=== PATIENT | male | born 1950 | race Caucasian/White ===

== ENCOUNTER → 2018-02-13 09:02 | Outpatient (CLI) | payer MEDICARE, SELFPAY ==
[2018-02-13 09:46] LABS: Basophils # 0.2 K/mm3 (0-0.2); Eosinophils # 0.5 K/mm3 (0.0-0.4); Eosinophils % 3.6 % (0.1-12.0); Hemoglobin 17.3 g/dL (14.1-18.0); Lymphocytes # 3.4 K/mm3 (0.7-4.5); Mean Corpuscular HGB Conc 26.9 g/dL (31.8-35.4); Mean Corpuscular Hemoglobin 18.1 pg (27.0-31.2); Mean Corpuscular Volume 67.5 fl (80-94); Mean Platelet Volume 7.9 fl (7.4-10.4); Monocytes # 0.7 K/mm3 (0.1-1.0); Monocytes % 4.7 % (1.7-9.3); Neutrophils % 67.7 % (37.0-80.0); Platelet Count 555 K/mm3 (142-424); Red Cell Distribution Width 21.5 % (11.5-17.5); White Blood Count 14.7 K/mm3 (4.8-10.8)
[2018-02-13 10:12] LABS: Albumin Level 3.4 gm/dL (3.4-5.0); Blood Urea Nitrogen 17 mg/dL (7-18); Glucose 85 mg/dL (74-106); Sodium 138 mmol/L (136-145)
[2018-02-13 10:21] LABS: Red Blood Count 9.53 M/mm3 (4.60-6.20)
[2018-02-13 10:22] LABS: Hematocrit 64.3 % (42.0-52.0)
[2018-02-13 10:23] LABS: Anion Gap 13.9 mEq/L (5-15); Calcium 8.8 mg/dL (8.5-10.1); Carbon Dioxide 25 mmol/L (21.0-32.0); Chloride 106 mmol/L (98-107); Creatinine,Serum 1.56 mg/dL (0.70-1.30); Estimated Glomerular Filt Rate 44 ml/min (>60); GFR (African American) 54 ML/MIN (>60); Phosphorous 4.2 mg/dL (2.4-4.9)
[2018-02-13 11:54] LABS: Potassium 6.9 mmoL/L (3.5-5.1)
[2018-02-13 12:58] LABS: Appearance,Urine CLEAR (Clear); Bilirubin,Urine Negative (Negative); Blood, Urine Negative (Negative); Color,Urine YELLOW (Yellow); Glucose,Urine (UA) Negative (Negative); Ketones,Urine Negative (Negative); Leukocyte Esterase,Urine Negative (Negative); Nitrate,Urine Negative (Negative); PH,Urine 5.5 (5.0-8.5); Protein,Urine 2+ (Negative); Specific Gravity, Urine >= 1.030 (1.005-1.030); Urobilinogen,Urine 0.2 EU/dl (0.2)
[2018-02-13 13:07] LABS: Bacteria,Urine 1+ /lpf; Mucus,Urine 2+ /lpf; WBC,Urine Occasional #/hpf (0-3)
[2018-02-13 13:08] LABS: Creatinine,Urine Random 143 mg/dL (20-320); Total Protein,Urine Random 74.6 mg/dL (0.0-11.9)
[2018-02-13 14:12] LABS: Microscopic, Urine URINE MICROSCOPIC (MICROSCOPIC)
[2018-02-14 11:35] LABS: Vitamin D 25 Hydroxy 25.9 ng/mL (30.0-100.0)
[2018-02-14 17:08] LABS: Parathyroid Hormone Intact 28 pg/mL (15-65)
== END ==
PROVIDERS: PCP Family Medicine; Visit Provider Internal Medicine Nephrology
DX: N18.3 Chronic kidney disease, stage 3 (moderate) (principal)
CPT/HCPCS: 36415; 80069; 81001; 82570; 82652; 83970; 84155; 85025; 93005

== ENCOUNTER → 2018-02-23 14:05 | Outpatient (CLI) | payer MEDICARE, SELFPAY ==
[2018-02-23 14:56] LABS: Basophils # 0.2 K/mm3 (0-0.2); Basophils % 1.2 % (0.1-2.0); Eosinophils # 0.4 K/mm3 (0.0-0.4); Hemoglobin 16.9 g/dL (14.1-18.0); Lymphocytes # 3.6 K/mm3 (0.7-4.5); Lymphocytes % 24.2 K/mm3 (10-50); Mean Corpuscular HGB Conc 26.5 g/dL (31.8-35.4); Mean Corpuscular Hemoglobin 18.3 pg (27.0-31.2); Mean Platelet Volume 8.2 fl (7.4-10.4); Monocytes # 0.4 K/mm3 (0.1-1.0); Neutrophils # 10.1 K/mm3 (1.8-7.8); Neutrophils % 68.6 % (37.0-80.0); Platelet Count 586 K/mm3 (142-424); Red Cell Distribution Width 21.2 % (11.5-17.5); White Blood Count 14.8 K/mm3 (4.8-10.8)
[2018-02-23 14:58] LABS: Red Blood Count 9.25 M/mm3 (4.60-6.20)
[2018-02-23 15:04] LABS: Hematocrit 63.8 % (42.0-52.0)
[2018-02-23 15:23] LABS: Albumin Level 3.4 gm/dL (3.4-5.0); Anion Gap 13.5 mEq/L (5-15); Blood Urea Nitrogen 22 mg/dL (7-18); Calcium 8.6 mg/dL (8.5-10.1); Carbon Dioxide 25 mmol/L (21.0-32.0); Chloride 103 mmol/L (98-107); Creatinine,Serum 1.85 mg/dL (0.70-1.30); Estimated Glomerular Filt Rate 37 ml/min (>60); GFR (African American) 44 ML/MIN (>60); Glucose 166 mg/dL (74-106); Phosphorous 3.8 mg/dL (2.4-4.9); Sodium 135 mmol/L (136-145)
[2018-02-23 15:26] LABS: Potassium 6.5 mmoL/L (3.5-5.1)
== END ==
PROVIDERS: PCP Family Medicine; Visit Provider Internal Medicine Nephrology
DX: N18.3 Chronic kidney disease, stage 3 (moderate) (principal)
CPT/HCPCS: 36415; 80069; 85025

== ENCOUNTER → 2018-02-26 13:07 | Outpatient (POV) | payer MEDICARE, SELFPAY | PROVIDERS: PCP Family Medicine; Visit Provider Internal Medicine Nephrology | DX: Z00.00 Encounter for general adult medical examination without abnormal findings (principal) ==

== ENCOUNTER → 2018-03-08 11:00 | Outpatient (CLI) | payer MEDICARE, SELFPAY ==
[2018-03-08 11:13] VITALS: BMI 25.3
[2018-03-08 11:45] LABS: Basophils # 0.2 K/mm3 (0-0.2); Eosinophils # 0.5 K/mm3 (0.0-0.4); Mean Corpuscular Volume 67.3 fl (80-94); Red Cell Distribution Width 20.7 % (11.5-17.5)
[2018-03-08 11:59] LABS: Basophils % 1.4 % (0.1-2.0); Eosinophils % 3.2 % (0.1-12.0); Hemoglobin 17.1 g/dL (14.1-18.0); Lymphocytes # 3.1 K/mm3 (0.7-4.5); Lymphocytes % 20.1 K/mm3 (10-50); Mean Corpuscular HGB Conc 27.2 g/dL (31.8-35.4); Mean Corpuscular Hemoglobin 18.3 pg (27.0-31.2); Mean Platelet Volume 7.7 fl (7.4-10.4); Monocytes # 0.7 K/mm3 (0.1-1.0); Monocytes % 4.6 % (1.7-9.3); Neutrophils % 70.7 % (37.0-80.0); Platelet Count 736 K/mm3 (142-424); White Blood Count 15.6 K/mm3 (4.8-10.8)
[2018-03-08 12:01] LABS: Red Blood Count 9.33 M/mm3 (4.60-6.20)
[2018-03-08 12:04] LABS: Hematocrit 62.8 % (42.0-52.0)
[2018-03-08 12:05] LABS: MANUAL DIFFERENTIAL MANUAL DIFFERENTIAL (MANUAL DIFF)
[2018-03-08 12:12] LABS: Ferritin 10 ng/mL (8-388)
[2018-03-08 12:37] LABS: Eosinophils % 2 % (0-3); Lymphocytes % 14 % (10-50); Monocytes % 5 % (2-9); Neutrophils % 78 % (42-76); Platelet Estimate Moderate Increase; Total Cells Counted 100
[2018-03-08 12:38] LABS: Microcytosis 2+
[2018-03-08 12:39] LABS: Hypochromasia 3+
--- NOTE | 2018-03-08 12:45 | PC.NURSE ---
03/08/18-LAB STAFF AT CHAIR SIDE TO OBTAIN BLOOD PER IV
[2018-03-09 08:24] LABS: UIBC 392 ug/dL (111-343)
[2018-03-09 18:08] LABS: Iron 21 ug/dL (38-169); Iron Saturation 5 % (15-55)
== END ==
PROVIDERS: Visit Provider Internal Medicine Medical Oncology
DX: R71.0 Precipitous drop in hematocrit (principal); D75.1 Secondary polycythemia
CPT/HCPCS: 81206; 81270; 82728; 83540; 83550; 85007; 85025; 99195

== ENCOUNTER 2018-03-22 11:04 | Outpatient (CLI) | payer MEDICARE, SELFPAY ==
[2018-03-22 10:57] VITALS: BMI 25.5
[2018-03-22 11:43] LABS: Basophils # 0.2 K/mm3 (0-0.2); Basophils % 1.6 % (0.1-2.0); Eosinophils # 0.5 K/mm3 (0.0-0.4); Hemoglobin 16.8 g/dL (14.1-18.0); Lymphocytes # 2.8 K/mm3 (0.7-4.5); Lymphocytes % 18.5 % (10-50); Mean Corpuscular HGB Conc 27.4 g/dL (31.8-35.4); Mean Corpuscular Hemoglobin 18.7 pg (27.0-31.2); Mean Corpuscular Volume 68.2 fl (80-94); Mean Platelet Volume 9.4 fl (7.4-10.4); Monocytes # 0.8 K/mm3 (0.1-1.0); Monocytes % 5.2 % (1.7-9.3); Neutrophils # 10.8 K/mm3 (1.8-7.8); Neutrophils % 71.6 % (37.0-80.0); Platelet Count 704 K/mm3 (142-424); Red Cell Distribution Width 20.3 % (11.5-17.5)
[2018-03-22 11:44] LABS: Red Blood Count 8.97 M/mm3 (4.60-6.20)
[2018-03-22 11:51] LABS: MANUAL DIFFERENTIAL MANUAL DIFFERENTIAL (MANUAL DIFF)
[2018-03-22 12:26] LABS: Eosinophils % 4 % (0-3); Lymphocytes % 12 % (10-50); Monocytes % 4 % (2-9); Neutrophils % 77 % (42-76); Total Cells Counted 100
[2018-03-22 12:47] LABS: RBC Morphology Normal
[2018-03-22 13:23] VITALS: BP 132/63; PULSE 59; RESP 20; O2SAT 97
[2018-03-22 14:17] LABS: Hematocrit 61.1 % (42.0-52.0)
== END 2018-03-22 13:25 | disposition home or self-care (01) ==
LOC: INF 11:04
PROVIDERS: Visit Provider Internal Medicine Medical Oncology
DX: R71.8 Other abnormality of red blood cells (principal)
CPT/HCPCS: 36415; 85007; 85025; 99195

== ENCOUNTER → 2018-04-03 09:11 | Outpatient (CLI) | payer MEDICARE, SELFPAY ==
[2018-04-03 09:32] LABS: Basophils # 0.1 K/mm3 (0-0.2); Eosinophils % 0.7 % (0.1-12.0); Hematocrit 53.9 % (42.0-52.0); Hemoglobin 14.8 g/dL (14.1-18.0); Lymphocytes # 1.8 K/mm3 (0.7-4.5); Lymphocytes % 62.5 % (10-50); Mean Corpuscular HGB Conc 27.4 g/dL (31.8-35.4); Mean Corpuscular Hemoglobin 18.6 pg (27.0-31.2); Mean Platelet Volume 7.4 fl (7.4-10.4); Monocytes % 0.4 % (1.7-9.3); Neutrophils # 0.9 K/mm3 (1.8-7.8); Neutrophils % 33.4 % (37.0-80.0); Platelet Count 191 K/mm3 (142-424); Red Cell Distribution Width 20.6 % (11.5-17.5); White Blood Count 2.8 K/mm3 (4.8-10.8)
[2018-04-03 09:39] LABS: INR 1.08 (0.9-1.1); Prothrombin Time 11.1 seconds (9.4-11.8)
[2018-04-03 09:44] LABS: Red Blood Count 7.92 M/mm3 (4.60-6.20)
[2018-04-03 09:45] LABS: MANUAL DIFFERENTIAL MANUAL DIFFERENTIAL (MANUAL DIFF)
[2018-04-03 10:32] LABS: Lymphocytes % 56 % (10-50); Neutrophils % 28 % (42-76); Platelet Estimate Normal; Total Cells Counted 50
[2018-04-03 10:33] LABS: Hypochromasia 2+
[2018-04-03 10:34] LABS: Anisocytosis 2+
== END ==
PROVIDERS: PCP Family Medicine; Visit Provider Internal Medicine Medical Oncology
DX: D72.829 Elevated white blood cell count, unspecified (principal)
CPT/HCPCS: 36415; 85007; 85025; 85610

== ENCOUNTER → 2018-04-12 14:35 | Outpatient (CLI) | payer MEDICARE, SELFPAY ==
[2018-04-12 14:55] LABS: Basophils # 0.2 K/mm3 (0-0.2); Basophils % 4.3 % (0.1-2.0); Eosinophils # 0.1 K/mm3 (0.0-0.4); Eosinophils % 1.5 % (0.1-12.0); Hemoglobin 14.9 g/dL (14.1-18.0); Lymphocytes # 2.2 K/mm3 (0.7-4.5); Lymphocytes % 52.6 % (10-50); Mean Corpuscular HGB Conc 28.2 g/dL (31.8-35.4); Mean Corpuscular Hemoglobin 19.7 pg (27.0-31.2); Mean Corpuscular Volume 70.1 fl (80-94); Mean Platelet Volume 10.5 fl (7.4-10.4); Monocytes # 0.3 K/mm3 (0.1-1.0); Monocytes % 6.4 % (1.7-9.3); Neutrophils # 1.5 K/mm3 (1.8-7.8); Neutrophils % 35.1 % (37.0-80.0); Platelet Count 256 K/mm3 (142-424); Red Cell Distribution Width 23.1 % (11.5-17.5); White Blood Count 4.2 K/mm3 (4.8-10.8)
[2018-04-12 14:57] LABS: Red Blood Count 7.57 M/mm3 (4.60-6.20)
[2018-04-12 14:58] LABS: MANUAL DIFFERENTIAL MANUAL DIFFERENTIAL (MANUAL DIFF)
[2018-04-12 16:39] LABS: Albumin Level 3.5 gm/dL (3.4-5.0); Anion Gap 10.6 mEq/L (5-15); Blood Urea Nitrogen 16 mg/dL (7-18); Calcium 8.4 mg/dL (8.5-10.1); Carbon Dioxide 30 mmol/L (21.0-32.0); Chloride 104 mmol/L (98-107); Creatinine,Serum 1.43 mg/dL (0.70-1.30); Estimated Glomerular Filt Rate 49 ml/min (>60); GFR (African American) 60 ML/MIN (>60); Glucose 99 mg/dL (74-106); Potassium 4.6 mmoL/L (3.5-5.1); Sodium 140 mmol/L (136-145)
[2018-04-12 16:39] LABS: Alanine Aminotransferase 34 U/L (12-78); Albumin Level 3.5 gm/dL (3.4-5.0); Albumin/Globulin Ratio 1.1 (1.1-1.8); Alkaline Phosphatase 121 U/L (46-116); Anion Gap 9.5 mEq/L (5-15); Aspartate Amino Transferase 14 U/L (15-37); Bilirubin,Total 0.8 mg/dL (0.2-1.0); Blood Urea Nitrogen 16 mg/dL (7-18); Calcium 8.5 mg/dL (8.5-10.1); Carbon Dioxide 31 mmol/L (21.0-32.0); Chloride 104 mmol/L (98-107); Creatinine,Serum 1.44 mg/dL (0.70-1.30); Estimated Glomerular Filt Rate 49 ml/min (>60); GFR (African American) 59 ML/MIN (>60); Globulin 3.2 gm/dl (1.3-3.2); Glucose 98 mg/dL (74-106); Potassium 4.5 mmoL/L (3.5-5.1); Sodium 140 mmol/L (136-145); Total Protein,Serum 6.7 gm/dL (6.4-8.2); Uric Acid 9.5 mg/dL (2.6-7.2)
[2018-04-13 02:37] LABS: Eosinophils % 2 % (0-3); Lymphocytes % 62 % (10-50); Monocytes % 10 % (2-9); Neutrophils % 26 % (42-76); Total Cells Counted 50
[2018-04-13 02:38] LABS: Anisocytosis 1+; Ovalocytes 1+; Platelet Estimate Normal; Stomatocytes 1+
== END ==
PROVIDERS: PCP Internal Medicine Nephrology; Visit Provider Internal Medicine Medical Oncology
DX: E87.5 Hyperkalemia (principal)
CPT/HCPCS: 36415; 80053; 80069; 84550; 85007; 85025

== ENCOUNTER → 2018-04-13 12:40 | Outpatient (CLI) | payer MEDICARE, SELFPAY ==
--- NOTE | 2018-04-13 12:42 | US_ITS ---
US kidney retroperitoneal comp HISTORY: Chronic renal disease ITS.REASON: CKD 3 ORDERING PHYSICIAN: Mamadou Mirza PATIENT AGE: 67 years Comparison: None FINDINGS: RIGHT KIDNEY:Unremarkable. Normal size and echogenicity. No hydronephrosis Right kidney is 11 x 5 x 5 cm LEFT KIDNEY:Unremarkable. No hydronephrosis. Normal size and echogenicity. Left kidney is 11 x 5 x 5 cm OTHER FINDINGS: Mild bilateral renal cortical thinning. Unremarkable echogenicity IMPRESSION: 1. No hydronephrosis. 2. Minimal cortical thinning
== END ==
PROVIDERS: PCP Family Medicine; Visit Provider Internal Medicine Nephrology
DX: N18.3 Chronic kidney disease, stage 3 (moderate) (principal)
CPT/HCPCS: 76770

== ENCOUNTER → 2018-04-16 14:06 | Outpatient (POV) | payer MEDICARE, SELFPAY | PROVIDERS: Visit Provider Internal Medicine Nephrology | DX: Z00.00 Encounter for general adult medical examination without abnormal findings (principal) ==

== ENCOUNTER → 2018-04-26 12:51 | Outpatient (CLI) | payer MEDICARE, SELFPAY ==
[2018-04-26 13:12] LABS: Basophils # 0.1 K/mm3 (0-0.2); Basophils % 1.5 % (0.1-2.0); Eosinophils # 0.2 K/mm3 (0.0-0.4); Eosinophils % 1.7 % (0.1-12.0); Hematocrit 52.1 % (42.0-52.0); Hemoglobin 14.9 g/dL (14.1-18.0); Lymphocytes # 2.4 K/mm3 (0.7-4.5); Lymphocytes % 25.2 % (10-50); Mean Corpuscular HGB Conc 28.5 g/dL (31.8-35.4); Mean Corpuscular Hemoglobin 20.4 pg (27.0-31.2); Mean Corpuscular Volume 71.5 fl (80-94); Mean Platelet Volume 8.5 fl (7.4-10.4); Monocytes # 0.4 K/mm3 (0.1-1.0); Monocytes % 3.8 % (1.7-9.3); Neutrophils # 6.4 K/mm3 (1.8-7.8); Neutrophils % 67.8 % (37.0-80.0); Platelet Count 504 K/mm3 (142-424); White Blood Count 9.5 K/mm3 (4.8-10.8)
[2018-04-26 13:18] LABS: Red Blood Count 7.29 M/mm3 (4.60-6.20); Red Cell Distribution Width 27.9 % (11.5-17.5)
== END ==
PROVIDERS: Visit Provider Internal Medicine Medical Oncology
DX: D45 Polycythemia vera (principal)
CPT/HCPCS: 36415; 85025

== ENCOUNTER → 2018-05-10 09:12 | Outpatient (CLI) | payer MEDICARE, SELFPAY ==
[2018-05-10 09:26] LABS: Basophils # 0.2 K/mm3 (0-0.2); Basophils % 2.6 % (0.1-2.0); Eosinophils # 0.1 K/mm3 (0.0-0.4); Eosinophils % 1.8 % (0.1-12.0); Hematocrit 50.5 % (42.0-52.0); Hemoglobin 15.3 g/dL (14.1-18.0); Lymphocytes # 2.3 K/mm3 (0.7-4.5); Mean Corpuscular HGB Conc 30.3 g/dL (31.8-35.4); Mean Corpuscular Hemoglobin 22.5 pg (27.0-31.2); Mean Corpuscular Volume 74.4 fl (80-94); Mean Platelet Volume 9.3 fl (7.4-10.4); Monocytes # 0.2 K/mm3 (0.1-1.0); Monocytes % 2.6 % (1.7-9.3); Platelet Count 261 K/mm3 (142-424); Red Blood Count 6.78 M/mm3 (4.60-6.20); White Blood Count 6.8 K/mm3 (4.8-10.8)
[2018-05-10 09:58] LABS: Red Cell Distribution Width 33.6 % (11.5-17.5)
== END ==
PROVIDERS: Visit Provider Internal Medicine Medical Oncology
DX: D45 Polycythemia vera (principal)
CPT/HCPCS: 36415; 85025

== ENCOUNTER → 2018-06-07 09:52 | Outpatient (CLI) | payer MEDICARE, SELFPAY ==
[2018-06-07 10:38] LABS: Basophils # 0.1 K/mm3 (0-0.2); Basophils % 1.9 % (0.1-2.0); Eosinophils # 0.1 K/mm3 (0.0-0.4); Eosinophils % 1.3 % (0.1-12.0); Hematocrit 48.4 % (42.0-52.0); Hemoglobin 14.8 g/dL (14.1-18.0); Lymphocytes # 2.5 K/mm3 (0.7-4.5); Lymphocytes % 34.5 % (10-50); Mean Corpuscular HGB Conc 30.5 g/dL (31.8-35.4); Mean Corpuscular Hemoglobin 26.2 pg (27.0-31.2); Mean Corpuscular Volume 85.9 fl (80-94); Mean Platelet Volume 7.6 fl (7.4-10.4); Monocytes # 0.2 K/mm3 (0.1-1.0); Neutrophils # 4.3 K/mm3 (1.8-7.8); Neutrophils % 59.3 % (37.0-80.0); Platelet Count 297 K/mm3 (142-424); Red Blood Count 5.64 M/mm3 (4.60-6.20); White Blood Count 7.2 K/mm3 (4.8-10.8)
[2018-06-07 13:26] LABS: Alanine Aminotransferase 39 U/L (12-78); Albumin Level 3.5 gm/dL (3.4-5.0); Albumin/Globulin Ratio 1.2 (1.1-1.8); Alkaline Phosphatase 117 U/L (46-116); Anion Gap 11.9 mEq/L (5-15); Aspartate Amino Transferase 21 U/L (15-37); Bilirubin,Total 0.5 mg/dL (0.2-1.0); Blood Urea Nitrogen 15 mg/dL (7-18); Calcium 8.6 mg/dL (8.5-10.1); Carbon Dioxide 29 mmol/L (21.0-32.0); Chloride 103 mmol/L (98-107); Creatinine,Serum 1.42 mg/dL (0.70-1.30); Estimated Glomerular Filt Rate 50 ml/min (>60); GFR (African American) 60 ML/MIN (>60); Glucose 134 mg/dL (74-106); Potassium 3.9 mmoL/L (3.5-5.1); Sodium 140 mmol/L (136-145); Total Protein,Serum 6.5 gm/dL (6.4-8.2)
== END ==
PROVIDERS: Visit Provider Internal Medicine Medical Oncology
DX: D45 Polycythemia vera (principal)
CPT/HCPCS: 36415; 80053; 85025

== ENCOUNTER 2018-07-03 10:51 | Outpatient (CLI) | payer MEDICARE, SELFPAY ==
[2018-07-03 10:51] VITALS: BMI 25.8
[2018-07-03 11:12] LABS: Basophils # 0.1 K/mm3 (0-0.2); Basophils % 1.4 % (0.1-2.0); Eosinophils # 0.1 K/mm3 (0.0-0.4); Eosinophils % 1.7 % (0.1-12.0); Hematocrit 45.3 % (42.0-52.0); Lymphocytes # 2.4 K/mm3 (0.7-4.5); Mean Corpuscular HGB Conc 30.8 g/dL (31.8-35.4); Mean Corpuscular Hemoglobin 30.2 pg (27.0-31.2); Mean Corpuscular Volume 98.2 fl (80-94); Mean Platelet Volume 9.7 fl (7.4-10.4); Monocytes # 0.2 K/mm3 (0.1-1.0); Monocytes % 2.9 % (1.7-9.3); Neutrophils # 3.9 K/mm3 (1.8-7.8); Platelet Count 292 K/mm3 (142-424); Red Blood Count 4.61 M/mm3 (4.60-6.20); White Blood Count 6.8 K/mm3 (4.8-10.8)
[2018-07-03 11:26] LABS: Red Cell Distribution Width 35.7 % (11.5-17.5)
--- NOTE | 2018-07-03 11:30 | PC.NURSE ---
PT WAS HERE FOR LABS; BASED ON LABS AND ORDERS NO PHLEBOTOMY WAS DONE TODAY; PT WILL RETURN FOR REPEAT LABS AND FOLLOW WITH THE MD IN 4 WEEKS
== END 2018-07-03 11:35 | disposition home or self-care (01) ==
LOC: INF 10:51
PROVIDERS: Visit Provider Internal Medicine Medical Oncology
DX: D45 Polycythemia vera (principal)
CPT/HCPCS: 36415; 85025

== ENCOUNTER → 2018-07-09 12:16 | Outpatient (CLI) | payer MEDICARE, SELFPAY ==
[2018-07-09 12:37] LABS: Basophils # 0.1 K/mm3 (0-0.2); Basophils % 1.5 % (0.1-2.0); Eosinophils # 0.1 K/mm3 (0.0-0.4); Eosinophils % 1.6 % (0.1-12.0); Hematocrit 45.7 % (42.0-52.0); Hemoglobin 14.4 g/dL (14.1-18.0); Lymphocytes # 2.3 K/mm3 (0.7-4.5); Lymphocytes % 38.8 % (10-50); Mean Corpuscular HGB Conc 31.6 g/dL (31.8-35.4); Mean Corpuscular Hemoglobin 31.2 pg (27.0-31.2); Mean Corpuscular Volume 98.8 fl (80-94); Monocytes # 0.1 K/mm3 (0.1-1.0); Monocytes % 2.3 % (1.7-9.3); Neutrophils # 3.3 K/mm3 (1.8-7.8); Neutrophils % 55.8 % (37.0-80.0); Platelet Count 279 K/mm3 (142-424); Red Blood Count 4.63 M/mm3 (4.60-6.20); White Blood Count 5.8 K/mm3 (4.8-10.8)
[2018-07-09 12:40] LABS: Red Cell Distribution Width 33.7 % (11.5-17.5)
[2018-07-09 13:18] LABS: Albumin Level 3.5 gm/dL (3.4-5.0); Blood Urea Nitrogen 17 mg/dL (7-18); Calcium 8.7 mg/dL (8.5-10.1); Carbon Dioxide 29 mmol/L (21.0-32.0); Chloride 103 mmol/L (98-107); Creatinine,Serum 1.57 mg/dL (0.70-1.30); Estimated Glomerular Filt Rate 44 ml/min (>60); GFR (African American) 53 ML/MIN (>60); Glucose 152 mg/dL (74-106); Sodium 141 mmol/L (136-145); Uric Acid 8.5 mg/dL (2.6-7.2)
[2018-07-10 07:32] LABS: Vitamin D 25 Hydroxy 19.4 ng/mL (30.0-100.0)
== END ==
PROVIDERS: Visit Provider Internal Medicine Nephrology
DX: N18.3 Chronic kidney disease, stage 3 (moderate) (principal)
CPT/HCPCS: 36415; 80069; 82652; 84550; 85025

== ENCOUNTER → 2018-07-16 12:44 | Outpatient (POV) | payer MEDICARE, SELFPAY | PROVIDERS: Visit Provider Internal Medicine Nephrology | DX: Z00.00 Encounter for general adult medical examination without abnormal findings (principal) ==

== ENCOUNTER → 2018-08-09 11:47 | Outpatient (CLI) | payer MEDICARE, SELFPAY ==
[2018-08-09 12:13] LABS: Basophils # 0.1 K/mm3 (0-0.2); Basophils % 1.5 % (0.1-2.0); Eosinophils # 0.1 K/mm3 (0.0-0.4); Eosinophils % 1.1 % (0.1-12.0); Hematocrit 39.7 % (42.0-52.0); Hemoglobin 12.8 g/dL (14.1-18.0); Lymphocytes # 2.6 K/mm3 (0.7-4.5); Mean Corpuscular HGB Conc 32.2 g/dL (31.8-35.4); Mean Corpuscular Hemoglobin 37.2 pg (27.0-31.2); Mean Corpuscular Volume 115.7 fl (80-94); Monocytes # 0.2 K/mm3 (0.1-1.0); Neutrophils # 2.9 K/mm3 (1.8-7.8); Neutrophils % 50.5 % (37.0-80.0); Platelet Count 247 K/mm3 (142-424); Red Blood Count 3.43 M/mm3 (4.60-6.20); Red Cell Distribution Width 23.7 % (11.5-17.5); White Blood Count 5.8 K/mm3 (4.8-10.8)
== END ==
PROVIDERS: Visit Provider Internal Medicine Medical Oncology
DX: D45 Polycythemia vera (principal)
CPT/HCPCS: 36415; 85025

== ENCOUNTER → 2018-10-25 12:04 | Outpatient (CLI) | payer MEDICARE, SELFPAY ==
[2018-10-25 12:54] LABS: Basophils # 0.1 K/mm3 (0-0.2); Basophils % 0.8 % (0.1-2.0); Eosinophils # 0.1 K/mm3 (0.0-0.4); Hematocrit 37.5 % (42.0-52.0); Hemoglobin 11.8 g/dL (14.1-18.0); Lymphocytes # 2.5 K/mm3 (0.7-4.5); Lymphocytes % 42.7 % (10-50); Mean Corpuscular HGB Conc 31.5 g/dL (31.8-35.4); Mean Corpuscular Hemoglobin 37.3 pg (27.0-31.2); Mean Corpuscular Volume 118.6 fl (80-94); Monocytes # 0.3 K/mm3 (0.1-1.0); Monocytes % 4.6 % (1.7-9.3); Platelet Count 230 K/mm3 (142-424); Red Blood Count 3.16 M/mm3 (4.60-6.20); Red Cell Distribution Width 15.1 % (11.5-17.5); White Blood Count 5.9 K/mm3 (4.8-10.8)
[2018-10-25 13:59] LABS: Potassium 4.2 mmoL/L (3.5-5.1); Sodium 139 mmol/L (136-145)
[2018-10-25 14:19] LABS: Alanine Aminotransferase 21 U/L (12-78); Albumin Level 3.3 gm/dL (3.4-5.0); Albumin/Globulin Ratio 1.2 (1.1-1.8); Alkaline Phosphatase 108 U/L (46-116); Anion Gap 12.2 mEq/L (5-15); Aspartate Amino Transferase 16 U/L (15-37); Bilirubin,Total 0.4 mg/dL (0.2-1.0); Blood Urea Nitrogen 18 mg/dL (7-18); Calcium 7.7 mg/dL (8.5-10.1); Carbon Dioxide 27 mmol/L (21.0-32.0); Chloride 104 mmol/L (98-107); Creatinine,Serum 1.74 mg/dL (0.70-1.30); Estimated Glomerular Filt Rate 39 ml/min (>60); GFR (African American) 47 ML/MIN (>60); Globulin 2.8 gm/dl (1.3-3.2); Glucose 106 mg/dL (74-106); Total Protein,Serum 6.1 gm/dL (6.4-8.2)
== END ==
PROVIDERS: Visit Provider Internal Medicine Medical Oncology
DX: D64.9 Anemia, unspecified (principal)
CPT/HCPCS: 36415; 80053; 85025

== ENCOUNTER → 2018-11-06 08:28 | Outpatient (CLI) | payer MEDICARE, SELFPAY ==
[2018-11-06 09:57] LABS: Alanine Aminotransferase 26 U/L (12-78); Albumin Level 3.3 gm/dL (3.4-5.0); Albumin/Globulin Ratio 1.2 (1.1-1.8); Alkaline Phosphatase 112 U/L (46-116); Anion Gap 12.1 mEq/L (5-15); Aspartate Amino Transferase 15 U/L (15-37); Bilirubin,Total 0.4 mg/dL (0.2-1.0); Blood Urea Nitrogen 20 mg/dL (7-18); Calcium 7.9 mg/dL (8.5-10.1); Carbon Dioxide 29 mmol/L (21.0-32.0); Chloride 104 mmol/L (98-107); Chol/HDL Ratio 6.4 (1-3.5); Cholesterol 161 mg/dL (140-200); Creatinine,Serum 1.63 mg/dL (0.70-1.30); Estimated Glomerular Filt Rate 42 ml/min (>60); GFR (African American) 51 ML/MIN (>60); Globulin 2.8 gm/dl (1.3-3.2); Glucose 114 mg/dL (74-106); HDL Cholesterol 25 mg/dL (27-67); LDL Cholesterol 84 mg/dL (0-130); Potassium 4.1 mmoL/L (3.5-5.1); Sodium 141 mmol/L (136-145); Total Protein,Serum 6.1 gm/dL (6.4-8.2); Triglycerides 262 mg/dL (30-200); VLDL Cholesterol 52 mg/dL (0-40)
== END ==
PROVIDERS: Visit Provider Family Medicine
DX: E78.5 Hyperlipidemia, unspecified (principal); I10 Essential (primary) hypertension
CPT/HCPCS: 36415; 80053; 80061

== ENCOUNTER → 2018-11-14 12:36 | Outpatient (CLI) | payer MEDICARE, SELFPAY ==
[2018-11-14 13:27] LABS: Basophils # 0.1 K/mm3 (0-0.2); Eosinophils # 0.1 K/mm3 (0.0-0.4); Eosinophils % 1.1 % (0.1-12.0); Hematocrit 40.1 % (42.0-52.0); Hemoglobin 12.5 g/dL (14.1-18.0); Lymphocytes # 2.3 K/mm3 (0.7-4.5); Mean Corpuscular HGB Conc 31.1 g/dL (31.8-35.4); Mean Corpuscular Hemoglobin 38.8 pg (27.0-31.2); Mean Corpuscular Volume 124.7 fl (80-94); Monocytes # 0.2 K/mm3 (0.1-1.0); Monocytes % 2.8 % (1.7-9.3); Neutrophils # 3.1 K/mm3 (1.8-7.8); Neutrophils % 55.1 % (37.0-80.0); Platelet Count 263 K/mm3 (142-424); Red Blood Count 3.21 M/mm3 (4.60-6.20); Red Cell Distribution Width 15.4 % (11.5-17.5); White Blood Count 5.7 K/mm3 (4.8-10.8)
[2018-11-14 13:33] LABS: Alanine Aminotransferase 25 U/L (12-78); Albumin Level 3.3 gm/dL (3.4-5.0); Albumin/Globulin Ratio 1.2 (1.1-1.8); Alkaline Phosphatase 106 U/L (46-116); Anion Gap 9.8 mEq/L (5-15); Aspartate Amino Transferase 15 U/L (15-37); Bilirubin,Total 0.4 mg/dL (0.2-1.0); Blood Urea Nitrogen 19 mg/dL (7-18); Carbon Dioxide 28 mmol/L (21.0-32.0); Chloride 106 mmol/L (98-107); Creatinine,Serum 1.69 mg/dL (0.70-1.30); Estimated Glomerular Filt Rate 40 ml/min (>60); GFR (African American) 49 ML/MIN (>60); Globulin 2.8 gm/dl (1.3-3.2); Potassium 3.8 mmoL/L (3.5-5.1); Sodium 140 mmol/L (136-145); Total Protein,Serum 6.1 gm/dL (6.4-8.2)
[2018-11-14 14:06] LABS: Glucose 129 mg/dL (74-106)
== END ==
PROVIDERS: Visit Provider Internal Medicine Nephrology
DX: D45 Polycythemia vera (principal)
CPT/HCPCS: 36415; 80053; 85025

== ENCOUNTER → 2018-11-21 12:38 | Outpatient (POV) | payer MEDICARE, SELFPAY | PROVIDERS: Visit Provider Internal Medicine Nephrology | DX: Z00.00 Encounter for general adult medical examination without abnormal findings (principal) ==

== ENCOUNTER → 2019-02-01 10:01 | Outpatient (CLI) | payer MEDICARE, SELFPAY ==
[2019-02-01 10:55] LABS: Basophils # 0.1 K/mm3 (0-0.2); Basophils % 1.1 % (0.1-2.0); Eosinophils # 0.1 K/mm3 (0.0-0.4); Eosinophils % 0.8 % (0.1-12.0); Hematocrit 42.3 % (42.0-52.0); Hemoglobin 13.5 g/dL (14.1-18.0); Lymphocytes # 2.8 K/mm3 (0.7-4.5); Lymphocytes % 42.1 % (10-50); Mean Corpuscular Hemoglobin 39.1 pg (27.0-31.2); Mean Corpuscular Volume 122.2 fl (80-94); Mean Platelet Volume 9.3 fl (7.4-10.4); Monocytes # 0.2 K/mm3 (0.1-1.0); Monocytes % 2.8 % (1.7-9.3); Neutrophils # 3.5 K/mm3 (1.8-7.8); Neutrophils % 53.2 % (37.0-80.0); Platelet Count 249 K/mm3 (142-424); Red Blood Count 3.46 M/mm3 (4.60-6.20); Red Cell Distribution Width 15.4 % (11.5-17.5); White Blood Count 6.6 K/mm3 (4.8-10.8)
[2019-02-01 11:27] LABS: Alanine Aminotransferase 22 U/L (12-78); Albumin Level 3.7 gm/dL (3.4-5.0); Albumin/Globulin Ratio 1.2 (1.1-1.8); Alkaline Phosphatase 100 U/L (46-116); Anion Gap 12.8 mEq/L (5-15); Aspartate Amino Transferase 12 U/L (15-37); Bilirubin,Total 0.5 mg/dL (0.2-1.0); Blood Urea Nitrogen 20 mg/dL (7-18); Calcium 8.5 mg/dL (8.5-10.1); Carbon Dioxide 28 mmol/L (21.0-32.0); Chloride 104 mmol/L (98-107); Creatinine,Serum 1.74 mg/dL (0.70-1.30); Estimated Glomerular Filt Rate 39 ml/min (>60); GFR (African American) 47 ML/MIN (>60); Globulin 3.1 gm/dl (1.3-3.2); Glucose 107 mg/dL (74-106); Potassium 3.8 mmoL/L (3.5-5.1); Sodium 141 mmol/L (136-145); Total Protein,Serum 6.8 gm/dL (6.4-8.2)
== END ==
PROVIDERS: Visit Provider Internal Medicine Hematology & Oncology
DX: P61.1 Polycythemia neonatorum (principal)
CPT/HCPCS: 36415; 80053; 85025

== ENCOUNTER → 2019-04-30 10:39 | Outpatient (CLI) | payer MEDICARE, SELFPAY ==
[2019-04-30 10:56] LABS: Basophils % 0.8 % (0.1-2.0); Eosinophils # 0.1 K/mm3 (0.0-0.4); Eosinophils % 1.6 % (0.1-12.0); Hematocrit 42.8 % (42.0-52.0); Hemoglobin 13.9 g/dL (14.1-18.0); Lymphocytes # 2.2 K/mm3 (0.7-4.5); Lymphocytes % 41.6 % (10-50); Mean Corpuscular HGB Conc 32.5 g/dL (31.8-35.4); Mean Corpuscular Hemoglobin 39.2 pg (27.0-31.2); Mean Corpuscular Volume 120.8 fl (80-94); Mean Platelet Volume 10.6 fl (7.4-10.4); Monocytes # 0.2 K/mm3 (0.1-1.0); Monocytes % 2.8 % (1.7-9.3); Neutrophils # 2.8 K/mm3 (1.8-7.8); Neutrophils % 53.1 % (37.0-80.0); Platelet Count 229 K/mm3 (142-424); Red Blood Count 3.54 M/mm3 (4.60-6.20); Red Cell Distribution Width 14.8 % (11.5-17.5); White Blood Count 5.2 K/mm3 (4.8-10.8)
[2019-04-30 13:02] LABS: Alanine Aminotransferase 17 U/L (12-78); Albumin Level 3.6 gm/dL (3.4-5.0); Albumin/Globulin Ratio 1.2 (1.1-1.8); Alkaline Phosphatase 103 U/L (46-116); Anion Gap 13.6 mEq/L (5-15); Aspartate Amino Transferase 9 U/L (15-37); Bilirubin,Total 0.5 mg/dL (0.2-1.0); Blood Urea Nitrogen 17 mg/dL (7-18); Carbon Dioxide 26 mmol/L (21.0-32.0); Chloride 107 mmol/L (98-107); Creatinine,Serum 1.59 mg/dL (0.70-1.30); Estimated Glomerular Filt Rate 43 ml/min (>60); GFR (African American) 52 ML/MIN (>60); Globulin 2.9 gm/dl (1.3-3.2); Glucose 102 mg/dL (74-106); Potassium 4.6 mmoL/L (3.5-5.1); Sodium 142 mmol/L (136-145); Total Protein,Serum 6.5 gm/dL (6.4-8.2)
== END ==
PROVIDERS: Visit Provider Internal Medicine Medical Oncology
DX: D64.9 Anemia, unspecified (principal)
CPT/HCPCS: 36415; 80053; 85025

== ENCOUNTER → 2019-11-07 08:30 | Outpatient (CLI) | payer MEDICARE, SELFPAY ==
[2019-11-07 09:01] LABS: Basophils # 0.1 K/mm3 (0-0.2); Basophils % 0.9 % (0.1-2.0); Eosinophils # 0.1 K/mm3 (0.0-0.4); Hematocrit 41.5 % (42.0-52.0); Hemoglobin 13.4 g/dL (14.1-18.0); Lymphocytes # 1.9 K/mm3 (0.7-4.5); Lymphocytes % 35.8 % (10-50); Mean Corpuscular HGB Conc 32.3 g/dL (31.8-35.4); Mean Corpuscular Hemoglobin 38.2 pg (27.0-31.2); Mean Corpuscular Volume 118.3 fl (80-94); Mean Platelet Volume 9.5 fl (7.4-10.4); Monocytes # 0.2 K/mm3 (0.1-1.0); Monocytes % 3.1 % (1.7-9.3); Neutrophils # 3.2 K/mm3 (1.8-7.8); Neutrophils % 59.3 % (37.0-80.0); Platelet Count 276 K/mm3 (142-424); Red Blood Count 3.51 M/mm3 (4.60-6.20); Red Cell Distribution Width 15.8 % (11.5-17.5); White Blood Count 5.4 K/mm3 (4.8-10.8)
[2019-11-07 09:39] LABS: Chloride 107 mmol/L (98-107)
[2019-11-07 09:40] LABS: Potassium 5.2 mmoL/L (3.5-5.1); Sodium 135 mmol/L (136-145)
[2019-11-07 09:42] LABS: Alanine Aminotransferase 13 U/L (12-78); Aspartate Amino Transferase 17 U/L (17-59); Blood Urea Nitrogen 16 mg/dl (9-20); Estimated Glomerular Filt Rate 50 ml/min (>60); GFR (African American) 61 ML/MIN (>60)
[2019-11-07 09:43] LABS: Albumin Level 3.7 g/dl (3.5-5.0); Albumin/Globulin Ratio 1.4 (1.1-1.8); Alkaline Phosphatase 83 U/L (38-126); Anion Gap 7.2 mEq/L (5-15); Bilirubin,Total 0.5 mg/dl (0.2-1.3); Calcium 8.5 mg/dl (8.4-10.2); Carbon Dioxide 26 mmol/L (22.0-30.0); Globulin 2.7 g/dL (1.3-3.2); Glucose 117 mg/dl (74-100); Total Protein,Serum 6.4 g/dl (6.3-8.2)
== END ==
PROVIDERS: Visit Provider Internal Medicine Medical Oncology
DX: D64.9 Anemia, unspecified (principal)
CPT/HCPCS: 36415; 80053; 85025

== ENCOUNTER → 2020-04-30 08:38 | Outpatient (CLI) | payer MEDICARE, SELFPAY ==
[2020-04-30 09:35] LABS: Basophils # 0.1 K/mm3 (0-0.2); Basophils % 1.2 % (0.1-2.0); Eosinophils % 0.6 % (0.1-12.0); Hematocrit 40.9 % (42.0-52.0); Hemoglobin 13.1 g/dL (14.1-18.0); Lymphocytes # 2.1 K/mm3 (0.7-4.5); Lymphocytes % 39.8 % (10-50); Mean Corpuscular Volume 128.4 fl (80-94); Mean Platelet Volume 9.9 fl (7.4-10.4); Monocytes # 0.2 K/mm3 (0.1-1.0); Monocytes % 3.3 % (1.7-9.3); Neutrophils # 2.9 K/mm3 (1.8-7.8); Neutrophils % 55.2 % (37.0-80.0); Platelet Count 222 K/mm3 (142-424); Red Blood Count 3.18 M/mm3 (4.60-6.20); Red Cell Distribution Width 15.9 % (11.5-17.5); White Blood Count 5.2 K/mm3 (4.8-10.8)
[2020-04-30 09:44] LABS: Chloride 105 mmol/L (98-107); Potassium 4.9 mmoL/L (3.5-5.1); Sodium 136 mmol/L (136-145)
[2020-04-30 09:47] LABS: Alanine Aminotransferase 19 U/L (12-78); Albumin Level 4.1 g/dl (3.5-5.0); Albumin/Globulin Ratio 1.5 (1.1-1.8); Alkaline Phosphatase 96 U/L (38-126); Anion Gap 10.9 mEq/L (5-15); Aspartate Amino Transferase 23 U/L (17-59); Bilirubin,Total 0.5 mg/dl (0.2-1.3); Blood Urea Nitrogen 21 mg/dl (9-20); Carbon Dioxide 25 mmol/L (22.0-30.0); Estimated Glomerular Filt Rate 46 ml/min (>60); GFR (African American) 56 ML/MIN (>60); Globulin 2.8 g/dL (1.3-3.2); Total Protein,Serum 6.9 g/dl (6.3-8.2)
[2020-04-30 09:48] LABS: Calcium 9.3 mg/dl (8.4-10.2); Glucose 116 mg/dl (74-100)
[2020-04-30 10:02] LABS: Mean Corpuscular Hemoglobin 41.1 pg (27.0-31.2)
== END ==
PROVIDERS: Visit Provider Internal Medicine Medical Oncology
DX: D64.9 Anemia, unspecified (principal)
CPT/HCPCS: 36415; 80053; 85025

== ENCOUNTER → 2020-10-15 09:15 | Outpatient (CLI) | payer MEDICARE, SELFPAY ==
[2020-10-15 09:40] LABS: Basophils % 0.5 % (0.1-2.0); Eosinophils % 0.8 % (0.1-12.0); Hematocrit 35.2 % (42.0-52.0); Hemoglobin 11.7 g/dL (14.1-18.0); Lymphocytes # 1.4 K/mm3 (0.7-4.5); Lymphocytes % 38.2 % (10-50); Mean Corpuscular HGB Conc 33.3 g/dL (31.8-35.4); Mean Corpuscular Volume 125.1 fl (80-94); Mean Platelet Volume 11.4 fl (7.4-10.4); Monocytes # 0.1 K/mm3 (0.1-1.0); Monocytes % 3.5 % (1.7-9.3); Neutrophils # 2.1 K/mm3 (1.8-7.8); Platelet Count 145 K/mm3 (142-424); Red Blood Count 2.81 M/mm3 (4.60-6.20); Red Cell Distribution Width 15.8 % (11.5-17.5); White Blood Count 3.7 K/mm3 (4.8-10.8)
[2020-10-15 09:52] LABS: Chloride 104 mmol/L (98-107); Mean Corpuscular Hemoglobin 41.7 pg (27.0-31.2); Potassium 4.7 mmoL/L (3.5-5.1); Sodium 134 mmol/L (136-145)
[2020-10-15 09:54] LABS: Alanine Aminotransferase 18 U/L (12-78); Aspartate Amino Transferase 24 U/L (17-59); Blood Urea Nitrogen 19 mg/dl (9-20); Estimated Glomerular Filt Rate 43 ml/min (>60); GFR (African American) 52 ML/MIN (>60)
[2020-10-15 09:55] LABS: Albumin/Globulin Ratio 1.3 (1.1-1.8); Alkaline Phosphatase 87 U/L (38-126); Anion Gap 9.7 mEq/L (5-15); Bilirubin,Total 0.9 mg/dl (0.2-1.3); Calcium 8.1 mg/dl (8.4-10.2); Carbon Dioxide 25 mmol/L (22.0-30.0); Glucose 105 mg/dl (74-100)
== END ==
PROVIDERS: Visit Provider Internal Medicine Medical Oncology
DX: D45 Polycythemia vera (principal)
CPT/HCPCS: 36415; 80053; 85025

== ENCOUNTER → 2020-10-29 15:15 | Outpatient (CLI) | payer MEDICARE, SELFPAY ==
--- NOTE | 2020-10-29 15:19 | CT_ITS ---
PROCEDURE: CT LUNG SCREENING CLINICAL INDICATION: H/O NICOTINE DEPENDENCE COMPARISON: CT LDCTLCAS LDCT FOR LUNG CA SCREEN from 11/04/2016 TECHNIQUE: The exam was performed on a GE Light Speed [address] scanner using 2.90 mGy CTDI. A low dose helical CT CHEST was performed on a multi-detector scanner. All CT scans at the facility use one or more dose reduction, viz: automated exposure control, ma/kV adjustment per patient size (including targeted exams where dose is matched to indication, i.e. head), or iterative reconstruction technique. The LDCT was performed in a facility that meets the criteria for the screening program. Data regarding this exam was submitted to ACR which is an approved registry. The order for this exam indicates that it came as a result of a lung cancer screening counseling shard decision-making visit that included all the elements required of such a visit including smoking cessation. The radiologist interpreting this exam meets the CMS criteria for the LDCT lung cancer screening program. The exam is reported using the Lung-RADS classification scale and reported to the ACR registry. NOTE: This study was performed for the specific purposes of lung cancer screening and is not an alternative to diagnostic chest CT. RADIATION DOSE: CTDI vol(CT dose Index-volume) = 2.90mG DLP (Dose Length Product) = 106.55 mGcm FINDINGS: Scattered mild emphysematous changes with mild bibasilar and lingula left upper lobe and right middle lobe areas of scar versus atelectasis. No pulmonary consolidation or ground-glass opacities in the lungs. No discrete pulmonary nodules. Heart is not enlarged. No pericardial effusion or thickening. Minimal calcification of the thoracic aorta without aneurysm. A few small nonspecific mediastinal lymph nodes are present similar to prior exam. No pleural effusion or pneumothorax. Great vessels off the aortic arch are normal. Images of the upper abdomen show no focal abnormality. No adrenal mass. Moderate diffuse degenerative changes of thoracic spine are noted. No acute bony abnormality. OTHER FINDINGS: No other pertinent findings evident. IMPRESSION: Lung-RADS Category 2 Benign Appearance or Behavior Follow-up: Serial follow-up in 1 year. Scattered mild emphysematous changes with mild bibasilar and lingula of left upper lobe and right middle lobe areas of scar versus atelectasis. Dictated by: Ethan Roe MD 10/30/2020 09:45 Ethan Roe MD in [place] 10/30/2020 09:45
== END ==
PROVIDERS: PCP Family Medicine; Visit Provider Family Medicine
DX: Z87.891 Personal history of nicotine dependence (principal); Z12.2 Encounter for screening for malignant neoplasm of respiratory organs
CPT/HCPCS: 71271

== ENCOUNTER → 2021-01-28 09:20 | Outpatient (CLI) | payer MEDICARE, SELFPAY ==
[2021-01-28 09:39] LABS: Basophils # 0.1 K/mm3 (0-0.2); Basophils % 0.8 % (0.1-2.0); Eosinophils # 0.1 K/mm3 (0.0-0.4); Eosinophils % 1.8 % (0.1-12.0); Hematocrit 44.2 % (42.0-52.0); Hemoglobin 13.5 g/dL (14.1-18.0); Lymphocytes # 1.9 K/mm3 (0.7-4.5); Lymphocytes % 29.7 % (10-50); Mean Corpuscular HGB Conc 30.5 g/dL (31.8-35.4); Mean Corpuscular Hemoglobin 34.7 pg (27.0-31.2); Mean Corpuscular Volume 113.8 fl (80-94); Mean Platelet Volume 11.2 fl (7.4-10.4); Monocytes # 0.2 K/mm3 (0.1-1.0); Monocytes % 2.7 % (1.7-9.3); Neutrophils # 4.2 K/mm3 (1.8-7.8); Platelet Count 319 K/mm3 (142-424); Red Blood Count 3.88 M/mm3 (4.60-6.20); Red Cell Distribution Width 16.1 % (11.5-17.5); White Blood Count 6.5 K/mm3 (4.8-10.8)
[2021-01-28 10:37] LABS: Alanine Aminotransferase 18 U/L (12-78); Albumin Level 3.9 g/dl (3.5-5.0); Albumin/Globulin Ratio 1.5 (1.1-1.8); Alkaline Phosphatase 90 U/L (38-126); Anion Gap 11.2 mEq/L (5-15); Aspartate Amino Transferase 21 U/L (17-59); Bilirubin,Total 0.5 mg/dl (0.2-1.3); Blood Urea Nitrogen 19 mg/dl (9-20); Calcium 8.2 mg/dl (8.4-10.2); Carbon Dioxide 26 mmol/L (22.0-30.0); Chloride 105 mmol/L (98-107); Estimated Glomerular Filt Rate 43 ml/min (>60); GFR (African American) 52 ML/MIN (>60); Globulin 2.6 g/dL (1.3-3.2); Glucose 110 mg/dl (74-100); Potassium 5.2 mmoL/L (3.5-5.1); Sodium 137 mmol/L (136-145); Total Protein,Serum 6.5 g/dl (6.3-8.2)
== END ==
PROVIDERS: Visit Provider Internal Medicine Medical Oncology
DX: D64.9 Anemia, unspecified (principal)
CPT/HCPCS: 36415; 80053; 85025

== ENCOUNTER → 2021-08-16 10:04 | Outpatient (CLI) | payer MEDICARE, SELFPAY ==
[2021-08-16 10:38] LABS: Basophils % 0.6 % (0.1-2.0); Eosinophils # 0.1 K/mm3 (0.0-0.4); Eosinophils % 1.9 % (0.1-12.0); Hemoglobin 12.9 g/dL (14.1-18.0); Lymphocytes # 1.5 K/mm3 (0.7-4.5); Lymphocytes % 26.4 % (10-50); Mean Corpuscular HGB Conc 31.5 g/dL (31.8-35.4); Mean Corpuscular Hemoglobin 34.7 pg (27.0-31.2); Mean Corpuscular Volume 110.3 fl (80-94); Mean Platelet Volume 11.6 fl (7.4-10.4); Monocytes # 0.2 K/mm3 (0.1-1.0); Monocytes % 2.9 % (1.7-9.3); Neutrophils # 3.8 K/mm3 (1.8-7.8); Neutrophils % 68.1 % (37.0-80.0); Platelet Count 267 K/mm3 (142-424); Red Blood Count 3.72 M/mm3 (4.60-6.20); Red Cell Distribution Width 19.4 % (11.5-17.5); White Blood Count 5.6 K/mm3 (4.8-10.8)
[2021-08-16 11:26] LABS: Chloride 107 mmol/L (98-107); Potassium 4.8 mmoL/L (3.5-5.1); Sodium 135 mmol/L (136-145)
[2021-08-16 11:29] LABS: Alanine Aminotransferase 18 U/L (12-78); Albumin Level 3.7 g/dl (3.5-5.0); Albumin/Globulin Ratio 1.5 (1.1-1.8); Alkaline Phosphatase 89 U/L (38-126); Anion Gap 8.8 mEq/L (5-15); Aspartate Amino Transferase 22 U/L (17-59); Bilirubin,Total 0.6 mg/dl (0.2-1.3); Blood Urea Nitrogen 18 mg/dl (9-20); Carbon Dioxide 24 mmol/L (22.0-30.0); Estimated Glomerular Filt Rate 43 ml/min (>60); GFR (African American) 52 ML/MIN (>60); Globulin 2.5 g/dL (1.3-3.2); Total Protein,Serum 6.2 g/dl (6.3-8.2)
[2021-08-16 11:30] LABS: Calcium 8.1 mg/dl (8.4-10.2); Glucose 97 mg/dl (74-100)
== END ==
PROVIDERS: Visit Provider Internal Medicine Medical Oncology
DX: D69.6 Thrombocytopenia, unspecified (principal)
CPT/HCPCS: 36415; 80053; 85025

== ENCOUNTER → 2022-03-04 09:27 | Outpatient (CLI) | payer MEDICARE, SELFPAY ==
[2022-03-04 10:45] LABS: Basophils # 0.1 K/mm3 (0-0.2); Basophils % 1.2 % (0.1-2.0); Eosinophils # 0.1 K/mm3 (0.0-0.4); Hematocrit 37.3 % (42.0-52.0); Hemoglobin 11.8 g/dL (14.1-18.0); Lymphocytes # 1.5 K/mm3 (0.7-4.5); Lymphocytes % 26.3 % (10-50); Mean Corpuscular HGB Conc 31.7 g/dL (31.8-35.4); Mean Corpuscular Hemoglobin 34.4 pg (27.0-31.2); Mean Corpuscular Volume 108.7 fl (80-94); Mean Platelet Volume 11.2 fl (7.4-10.4); Monocytes # 0.1 K/mm3 (0.1-1.0); Monocytes % 2.6 % (1.7-9.3); Neutrophils # 3.9 K/mm3 (1.8-7.8); Platelet Count 342 K/mm3 (142-424); Red Blood Count 3.43 M/mm3 (4.60-6.20); Red Cell Distribution Width 18.4 % (11.5-17.5); White Blood Count 5.6 K/mm3 (4.8-10.8)
[2022-03-04 11:14] LABS: Chloride 103 mmol/L (98-107)
[2022-03-04 11:15] LABS: Potassium 5.3 mmoL/L (3.5-5.1); Sodium 138 mmol/L (136-145)
[2022-03-04 11:17] LABS: Alanine Aminotransferase 15 U/L (12-78); Alkaline Phosphatase 109 U/L (38-126); Aspartate Amino Transferase 24 U/L (17-59); Bilirubin,Total 0.7 mg/dl (0.2-1.3); Blood Urea Nitrogen 19 mg/dl (9-20); Estimated Glomerular Filt Rate 40 ml/min (>60); GFR (African American) 48 ML/MIN (>60)
[2022-03-04 11:18] LABS: Albumin/Globulin Ratio 1.5 (1.1-1.8); Anion Gap 16.3 mEq/L (5-15); Calcium 8.1 mg/dl (8.4-10.2); Carbon Dioxide 24 mmol/L (22.0-30.0); Globulin 2.6 g/dL (1.3-3.2); Glucose 99 mg/dl (74-100); Total Protein,Serum 6.6 g/dl (6.3-8.2)
== END ==
PROVIDERS: PCP Family Medicine; Visit Provider Internal Medicine Medical Oncology
DX: D45 Polycythemia vera (principal)
CPT/HCPCS: 36415; 80053; 85025

== ENCOUNTER → 2022-05-26 09:27 | Outpatient (CLI) | payer MEDICARE, SELFPAY ==
[2022-05-26 10:23] LABS: Basophils # 0.1 K/mm3 (0-0.2); Eosinophils # 0.1 K/mm3 (0.0-0.4); Eosinophils % 1.9 % (0.1-12.0); Hematocrit 39.1 % (42.0-52.0); Hemoglobin 11.6 g/dL (14.1-18.0); Lymphocytes # 1.5 K/mm3 (0.7-4.5); Lymphocytes % 22.5 % (10-50); Mean Corpuscular HGB Conc 29.6 g/dL (31.8-35.4); Mean Corpuscular Hemoglobin 31.2 pg (27.0-31.2); Mean Corpuscular Volume 105.6 fl (80-94); Mean Platelet Volume 10.2 fl (7.4-10.4); Monocytes # 0.2 K/mm3 (0.1-1.0); Neutrophils # 4.8 K/mm3 (1.8-7.8); Neutrophils % 71.8 % (37.0-80.0); Platelet Count 501 K/mm3 (142-424); Red Blood Count 3.71 M/mm3 (4.60-6.20); Red Cell Distribution Width 19.5 % (11.5-17.5); White Blood Count 6.7 K/mm3 (4.8-10.8)
[2022-05-26 13:14] LABS: Chloride 108 mmol/L (98-107); Sodium 138 mmol/L (136-145)
[2022-05-26 13:17] LABS: Alanine Aminotransferase 16 U/L (12-78); Albumin Level 3.8 g/dl (3.5-5.0); Albumin/Globulin Ratio 1.5 (1.1-1.8); Alkaline Phosphatase 99 U/L (38-126); Aspartate Amino Transferase 22 U/L (17-59); Bilirubin,Total 0.6 mg/dl (0.2-1.3); Blood Urea Nitrogen 18 mg/dl (9-20); Carbon Dioxide 22 mmol/L (22.0-30.0); Estimated Glomerular Filt Rate 43 ml/min (>60); GFR (African American) 52 ML/MIN (>60); Globulin 2.6 g/dL (1.3-3.2); Total Protein,Serum 6.4 g/dl (6.3-8.2)
[2022-05-26 13:18] LABS: Glucose 105 mg/dl (74-100)
== END ==
PROVIDERS: PCP Family Medicine; Visit Provider Internal Medicine Medical Oncology
DX: D45 Polycythemia vera (principal)
CPT/HCPCS: 36415; 80053; 85025

== ENCOUNTER → 2022-09-02 09:10 | Outpatient (CLI) | payer MEDICARE, SELFPAY ==
[2022-09-02 10:01] LABS: Basophils % 0.7 % (0.1-2.0); Eosinophils # 0.1 K/mm3 (0.0-0.4); Hematocrit 36.9 % (42.0-52.0); Hemoglobin 11.4 g/dL (14.1-18.0); Lymphocytes # 1.2 K/mm3 (0.7-4.5); Lymphocytes % 21.1 % (10-50); Mean Corpuscular HGB Conc 30.8 g/dL (31.8-35.4); Mean Corpuscular Hemoglobin 31.5 pg (27.0-31.2); Mean Corpuscular Volume 102.2 fl (80-94); Mean Platelet Volume 9.9 fl (7.4-10.4); Monocytes # 0.1 K/mm3 (0.1-1.0); Monocytes % 2.2 % (1.7-9.3); Neutrophils # 4.3 K/mm3 (1.8-7.8); Neutrophils % 74.9 % (37.0-80.0); Platelet Count 403 K/mm3 (142-424); Red Blood Count 3.61 M/mm3 (4.60-6.20); White Blood Count 5.7 K/mm3 (4.8-10.8)
[2022-09-02 10:16] LABS: Chloride 105 mmol/L (98-107); Potassium 5.3 mmoL/L (3.5-5.1); Sodium 134 mmol/L (136-145)
[2022-09-02 10:18] LABS: Blood Urea Nitrogen 24 mg/dl (9-20)
[2022-09-02 10:19] LABS: Alanine Aminotransferase 15 U/L (12-78); Albumin Level 3.7 g/dl (3.5-5.0); Albumin/Globulin Ratio 1.6 (1.1-1.8); Alkaline Phosphatase 92 U/L (38-126); Anion Gap 10.3 mEq/L (5-15); Aspartate Amino Transferase 23 U/L (17-59); Bilirubin,Total 0.6 mg/dl (0.2-1.3); Calcium 7.7 mg/dl (8.4-10.2); Carbon Dioxide 24 mmol/L (22.0-30.0); Estimated Glomerular Filt Rate 35 ml/min (>60); GFR (African American) 42 ML/MIN (>60); Globulin 2.3 g/dL (1.3-3.2); Glucose 113 mg/dl (74-100)
== END ==
PROVIDERS: PCP Family Medicine; Visit Provider Internal Medicine Medical Oncology
DX: D45 Polycythemia vera (principal)
CPT/HCPCS: 36415; 80053; 85025

== ENCOUNTER → 2022-12-01 11:51 | Outpatient (CLI) | payer MEDICARE, SELFPAY ==
[2022-12-01 13:03] LABS: Alanine Aminotransferase 17 U/L (12-78); Albumin Level 4.1 g/dl (3.5-5.0); Albumin/Globulin Ratio 1.6 (1.1-1.8); Alkaline Phosphatase 103 U/L (38-126); Anion Gap 9.4 mEq/L (5-15); Aspartate Amino Transferase 27 U/L (17-59); Bilirubin,Total 0.5 mg/dl (0.2-1.3); Blood Urea Nitrogen 23 mg/dl (9-20); Calcium 8.2 mg/dl (8.4-10.2); Carbon Dioxide 25 mmol/L (22.0-30.0); Chloride 109 mmol/L (98-107); Estimated Glomerular Filt Rate 31 ml/min (>60); GFR (African American) 38 ML/MIN (>60); Globulin 2.6 g/dL (1.3-3.2); Glucose 111 mg/dl (74-100); Potassium 5.4 mmoL/L (3.5-5.1); Sodium 138 mmol/L (136-145); Total Protein,Serum 6.7 g/dl (6.3-8.2)
[2022-12-01 16:32] LABS: Basophils # 0.1 K/mm3 (0-0.2); Eosinophils # 0.1 K/mm3 (0.0-0.4); Eosinophils % 1.8 % (0.1-12.0); Hematocrit 35.5 % (42.0-52.0); Hemoglobin 10.6 g/dL (14.1-18.0); Lymphocytes # 1.5 K/mm3 (0.7-4.5); Lymphocytes % 20.4 % (10-50); Mean Corpuscular HGB Conc 29.9 g/dL (31.8-35.4); Mean Corpuscular Volume 103.6 fl (80-94); Mean Platelet Volume 9.8 fl (7.4-10.4); Monocytes # 0.2 K/mm3 (0.1-1.0); Monocytes % 2.7 % (1.7-9.3); Neutrophils # 5.6 K/mm3 (1.8-7.8); Neutrophils % 74.1 % (37.0-80.0); Platelet Count 405 K/mm3 (142-424); Red Blood Count 3.42 M/mm3 (4.60-6.20); Red Cell Distribution Width 18.8 % (11.5-17.5); White Blood Count 7.5 K/mm3 (4.8-10.8)
== END ==
PROVIDERS: PCP Family Medicine; Visit Provider Internal Medicine Medical Oncology
DX: I10 Essential (primary) hypertension (principal)
CPT/HCPCS: 36415; 80053; 85025

== ENCOUNTER → 2023-01-06 10:42 | Outpatient (CLI) | payer MEDICARE, SELFPAY ==
[2023-01-06 12:32] LABS: Anion Gap 13.3 mEq/L (5-15); Blood Urea Nitrogen 21 mg/dl (9-20); Calcium 7.8 mg/dl (8.4-10.2); Carbon Dioxide 25 mmol/L (22.0-30.0); Chloride 105 mmol/L (98-107); Estimated Glomerular Filt Rate 37 ml/min (>60); GFR (African American) 45 ML/MIN (>60); Glucose 120 mg/dl (74-100); Potassium 5.3 mmoL/L (3.5-5.1); Sodium 138 mmol/L (136-145)
== END ==
PROVIDERS: PCP Family Medicine; Visit Provider Family Medicine
DX: I10 Essential (primary) hypertension (principal)
CPT/HCPCS: 36415; 80048

== ENCOUNTER → 2023-04-11 13:53 | Outpatient (CLI) | payer MEDICARE, SELFPAY ==
[2023-04-11 14:41] LABS: Basophils # 0.1 K/mm3 (0-0.2); Basophils % 0.8 % (0.1-2.0); Eosinophils # 0.1 K/mm3 (0.0-0.4); Eosinophils % 1.3 % (0.1-12.0); Hematocrit 33.5 % (42.0-52.0); Hemoglobin 10.2 g/dL (14.1-18.0); Lymphocytes # 1.5 K/mm3 (0.7-4.5); Lymphocytes % 15.2 % (10-50); Mean Corpuscular HGB Conc 30.6 g/dL (31.8-35.4); Mean Corpuscular Hemoglobin 30.6 pg (27.0-31.2); Mean Corpuscular Volume 100.2 fl (80-94); Mean Platelet Volume 10.5 fl (7.4-10.4); Monocytes # 0.2 K/mm3 (0.1-1.0); Neutrophils # 8.2 K/mm3 (1.8-7.8); Neutrophils % 80.7 % (37.0-80.0); Platelet Count 717 K/mm3 (142-424); Red Blood Count 3.34 M/mm3 (4.60-6.20); Red Cell Distribution Width 19.9 % (11.5-17.5); White Blood Count 10.1 K/mm3 (4.8-10.8)
[2023-04-11 15:18] LABS: Chloride 109 mmol/L (98-107)
[2023-04-11 15:19] LABS: Potassium 5.7 mmoL/L (3.5-5.1); Sodium 137 mmol/L (136-145)
[2023-04-11 15:21] LABS: Alanine Aminotransferase 17 U/L (12-78); Anion Gap 9.7 mEq/L (5-15); Aspartate Amino Transferase 24 U/L (17-59); Blood Urea Nitrogen 18 mg/dl (9-20); Carbon Dioxide 24 mmol/L (22.0-30.0); Estimated Glomerular Filt Rate 37 ml/min (>60); GFR (African American) 45 ML/MIN (>60)
[2023-04-11 15:22] LABS: Albumin/Globulin Ratio 1.7 (1.1-1.8); Alkaline Phosphatase 115 U/L (38-126); Bilirubin,Total 0.7 mg/dl (0.2-1.3); Calcium 8.1 mg/dl (8.4-10.2); Globulin 2.4 g/dL (1.3-3.2); Glucose 99 mg/dl (74-100); Total Protein,Serum 6.4 g/dl (6.3-8.2)
== END ==
PROVIDERS: PCP Family Medicine; Visit Provider Internal Medicine Medical Oncology
DX: D45 Polycythemia vera (principal)
CPT/HCPCS: 36415; 80053; 85025

== ENCOUNTER 2023-05-03 13:24 | Outpatient (CLI) | payer MEDICARE, SELFPAY ==
[2023-05-03 13:29] VITALS: BMI 31.7
--- NOTE | 2023-05-03 13:36 | PC.NURSE ---
1336-collected labs via venipuncture stick in right ac with butterfly needle;pt to md appointment.
[2023-05-03 14:11] LABS: Iron 56 ug/dL (49-181)
[2023-05-03 14:20] LABS: Total Iron Binding Capacity 344 ug/dL (261-462)
[2023-05-03 14:48] LABS: Ferritin 54.1 ng/ml (17.9-464)
== END 2023-05-03 13:37 | disposition home or self-care (01) ==
LOC: INF 13:26
PROVIDERS: PCP Family Medicine; Visit Provider Internal Medicine Medical Oncology
DX: D45 Polycythemia vera (principal)
CPT/HCPCS: 36415; 82728; 83540; 83550

== ENCOUNTER → 2023-05-04 13:04 | Outpatient (CLI) | payer MEDICARE, SELFPAY ==
--- NOTE | 2023-05-04 13:08 | CT_ITS ---
FINAL REPORT TECHNIQUE: Axial images through the abdomen and pelvis were performed without contrast. This study was performed with techniques to keep radiation doses as low as reasonably achievable, (ALARA). Individualized dose reduction techniques using automated exposure control or adjustment of mA and/or kV according to the patient's size were employed. CLINICAL HISTORY: ABDOMINAL PAIN COMPARISON: None FINDINGS: Abdomen: Scarring is noted in the lingula. The liver is enlarged measuring 23 cm. The gallbladder is present. There is marked splenomegaly at 19 cm AP dimension and 16 cm craniocaudal dimension. The pancreas and adrenal are unremarkable. There are bilateral parapelvic renal cysts. There is mild haziness in the root of the mesentery. Pelvis: The urinary bladder is unremarkable. The appendix is not visualized. There is a large left inguinal hernia containing a loop of sigmoid colon. There is no pelvic mass or inflammation. There are mild hypertrophic changes of degenerative disc disease T12-L1 through L5-S1. IMPRESSION: Marked hepatosplenomegaly which may be due to underlying hematologic disorder. Correlate clinically. Large left inguinal hernia containing a loop of sigmoid colon. Mild nonspecific haziness root of the mesentery. Reviewed, Interpreted and Dictated by Mamadou Sellers MD Transcribed by Celeste Jennings Authenticated and [facility]
== END ==
LOC: RAD 13:05
PROVIDERS: PCP Family Medicine; Visit Provider Internal Medicine Medical Oncology
DX: R16.1 Splenomegaly, not elsewhere classified (principal); R10.30 Lower abdominal pain, unspecified
CPT/HCPCS: 74176

== ENCOUNTER 2023-05-19 12:54 | Outpatient (CLI) | payer MEDICARE, SELFPAY ==
[2023-05-19 12:59] VITALS: BMI 31.2
[2023-05-19 13:13] LABS: Basophils # 0.1 K/mm3 (0-0.2); Eosinophils # 0.2 K/mm3 (0.0-0.4); Hematocrit 35.2 % (42.0-52.0); Hemoglobin 10.5 g/dL (14.1-18.0); Lymphocytes # 1.4 K/mm3 (0.7-4.5); Lymphocytes % 16.2 % (10-50); Mean Corpuscular HGB Conc 29.8 g/dL (31.8-35.4); Mean Corpuscular Hemoglobin 30.4 pg (27.0-31.2); Mean Corpuscular Volume 101.9 fl (80-94); Mean Platelet Volume 11.3 fl (7.4-10.4); Monocytes # 0.2 K/mm3 (0.1-1.0); Monocytes % 2.5 % (1.7-9.3); Neutrophils # 6.7 K/mm3 (1.8-7.8); Neutrophils % 78.3 % (37.0-80.0); Platelet Count 626 K/mm3 (142-424); Red Blood Count 3.46 M/mm3 (4.60-6.20); Red Cell Distribution Width 20.4 % (11.5-17.5); White Blood Count 8.5 K/mm3 (4.8-10.8)
[2023-05-19 13:17] LABS: Chloride 109 mmol/L (98-107); Potassium 4.9 mmoL/L (3.5-5.1); Sodium 138 mmol/L (136-145)
--- NOTE | 2023-05-19 13:18 | PC.NURSE ---
1306- labs drawn (bmp and cbc) per MD order via butterfly needle in right ac. needle removed and coban applied. pt tolerated well.
[2023-05-19 14:37] LABS: Anion Gap 10.9 mEq/L (5-15); Blood Urea Nitrogen 20 mg/dl (9-20); Calcium 7.7 mg/dl (8.4-10.2); Carbon Dioxide 23 mmol/L (22.0-30.0); Creatinine Clearance Estimated 38 mL/min (50-200); Estimated Glomerular Filt Rate 33 ml/min (>60); GFR (African American) 40 ML/MIN (>60); Glucose 123 mg/dl (74-100)
== END 2023-05-19 13:15 | disposition home or self-care (01) ==
LOC: INF 12:56
PROVIDERS: PCP Family Medicine; Visit Provider Internal Medicine Medical Oncology
DX: D45 Polycythemia vera (principal)
CPT/HCPCS: 36415; 80048; 85025

== ENCOUNTER 2023-07-04 12:26 | Outpatient (CLI) | payer MEDICARE, SELFPAY ==
[2023-07-04 12:29] VITALS: BMI 31.2
[2023-07-04 12:42] LABS: Basophils # 0.1 K/mm3 (0-0.2); Basophils % 0.6 % (0.1-2.0); Eosinophils # 0.2 K/mm3 (0.0-0.4); Eosinophils % 1.9 % (0.1-12.0); Hematocrit 35.8 % (42.0-52.0); Hemoglobin 10.7 g/dL (14.1-18.0); Lymphocytes % 22.5 % (10-50); Mean Corpuscular HGB Conc 29.9 g/dL (31.8-35.4); Mean Corpuscular Hemoglobin 27.4 pg (27.0-31.2); Mean Corpuscular Volume 91.6 fl (80-94); Monocytes # 0.2 K/mm3 (0.1-1.0); Monocytes % 2.7 % (1.7-9.3); Neutrophils # 6.4 K/mm3 (1.8-7.8); Neutrophils % 72.4 % (37.0-80.0); Platelet Count 471 K/mm3 (142-424); Red Blood Count 3.91 M/mm3 (4.60-6.20); Red Cell Distribution Width 20.4 % (11.5-17.5); White Blood Count 8.8 K/mm3 (4.8-10.8)
[2023-07-04 12:50] LABS: Chloride 106 mmol/L (98-107); Potassium 4.6 mmoL/L (3.5-5.1); Sodium 136 mmol/L (136-145)
[2023-07-04 12:53] LABS: Alanine Aminotransferase 21 U/L (12-78); Albumin Level 3.5 g/dl (3.5-5.0); Albumin/Globulin Ratio 1.5 (1.1-1.8); Alkaline Phosphatase 99 U/L (38-126); Anion Gap 6.6 mEq/L (5-15); Aspartate Amino Transferase 26 U/L (17-59); Bilirubin,Total 0.5 mg/dl (0.2-1.3); Blood Urea Nitrogen 18 mg/dl (9-20); Calcium 8.2 mg/dl (8.4-10.2); Carbon Dioxide 28 mmol/L (22.0-30.0); Creatinine Clearance Estimated 40 mL/min (50-200); Estimated Glomerular Filt Rate 35 ml/min (>60); GFR (African American) 42 ML/MIN (>60); Globulin 2.3 g/dL (1.3-3.2); Glucose 99 mg/dl (74-100); Total Protein,Serum 5.8 g/dl (6.3-8.2)
== END 2023-07-04 12:35 | disposition home or self-care (01) ==
LOC: INF 12:27
PROVIDERS: PCP Family Medicine; Visit Provider Internal Medicine Medical Oncology
DX: D45 Polycythemia vera (principal)
CPT/HCPCS: 36415; 80053; 85025

== ENCOUNTER 2024-01-02 12:45 | Outpatient (CLI) | payer MEDICARE, SELFPAY ==
[2024-01-02 12:52] VITALS: BMI 23.8
--- NOTE | 2024-01-02 13:05 | PC.NURSE ---
13[address] Patient has appointment with Dr. Holder today/here for lab draw prior to appointment; CBC/CMP collected via venipuncture to R AC x1 stick with butterfly needle. Patient tolerated well.
[2024-01-02 13:14] LABS: Basophils # 0.1 K/mm3 (0-0.2); Eosinophils # 0.3 K/mm3 (0.0-0.4); Eosinophils % 2.5 % (0.1-12.0); Hematocrit 38.9 % (42.0-52.0); Hemoglobin 10.6 g/dL (14.1-18.0); Lymphocytes # 1.4 K/mm3 (0.7-4.5); Lymphocytes % 14.1 % (10-50); Mean Corpuscular HGB Conc 27.2 g/dL (31.8-35.4); Mean Corpuscular Hemoglobin 27.3 pg (27.0-31.2); Mean Corpuscular Volume 100.5 fl (80-94); Mean Platelet Volume 11.2 fl (7.4-10.4); Monocytes # 0.2 K/mm3 (0.1-1.0); Neutrophils # 8.2 K/mm3 (1.8-7.8); Neutrophils % 80.4 % (37.0-80.0); Platelet Count 620 K/mm3 (142-424); Red Blood Count 3.87 M/mm3 (4.60-6.20); Red Cell Distribution Width 21.4 % (11.5-17.5); White Blood Count 10.2 K/mm3 (4.8-10.8)
[2024-01-02 13:20] LABS: Chloride 111 mmol/L (98-107)
[2024-01-02 13:21] LABS: Albumin Level 3.7 g/dl (3.5-5.0); Potassium 5.2 mmoL/L (3.5-5.1); Sodium 137 mmol/L (136-145)
[2024-01-02 13:23] LABS: Blood Urea Nitrogen 30 mg/dl (9-20); Creatinine Clearance Estimated 33 mL/min (50-200); Estimated Glomerular Filt Rate 35 ml/min (>60); GFR (African American) 42 ML/MIN (>60)
[2024-01-02 13:24] LABS: Alanine Aminotransferase 12 U/L (12-78); Albumin/Globulin Ratio 1.4 (1.1-1.8); Alkaline Phosphatase 182 U/L (38-126); Anion Gap 8.2 mEq/L (5-15); Aspartate Amino Transferase 19 U/L (17-59); Bilirubin,Total 0.8 mg/dl (0.2-1.3); Calcium 8.1 mg/dl (8.4-10.2); Carbon Dioxide 23 mmol/L (22.0-30.0); Globulin 2.6 g/dL (1.3-3.2); Glucose 121 mg/dl (74-100); Total Protein,Serum 6.3 g/dl (6.3-8.2)
== END 2024-01-02 14:21 | disposition home or self-care (01) ==
LOC: INF 12:46
PROVIDERS: PCP Family Medicine; Visit Provider Internal Medicine Medical Oncology
DX: D75.839 Thrombocytosis, unspecified (principal)
CPT/HCPCS: 36415; 80053; 85025

== ENCOUNTER 2024-06-20 09:02 | Outpatient (CLI) | payer MEDICARE, SELFPAY ==
[2024-06-20 09:12] VITALS: BMI 25.9
--- NOTE | 2024-06-20 09:12 | PC.NURSE ---
0903 Labs obtained via venipuncture x1 stick to R AC with butterfly needle. Patient has appointment with Dr. Holder this am. Patient tolerated well.
[2024-06-20 09:23] LABS: Basophils # 0.1 K/mm3 (0-0.2); Basophils % 0.8 % (0.1-2.0); Eosinophils # 0.2 K/mm3 (0.0-0.4); Eosinophils % 1.7 % (0.1-12.0); Hematocrit 46.3 % (42.0-52.0); Hemoglobin 13.3 g/dL (14.1-18.0); Lymphocytes # 1.3 K/mm3 (0.7-4.5); Lymphocytes % 9.9 % (10-50); Mean Corpuscular HGB Conc 28.7 g/dL (31.8-35.4); Mean Corpuscular Hemoglobin 25.3 pg (27.0-31.2); Mean Corpuscular Volume 88.2 fl (80-94); Mean Platelet Volume 11.2 fl (7.4-10.4); Monocytes # 0.5 K/mm3 (0.1-1.0); Monocytes % 3.4 % (1.7-9.3); Neutrophils # 10.6 K/mm3 (1.8-7.8); Neutrophils % 79.3 % (37.0-80.0); Platelet Count 399 K/mm3 (142-424); Red Blood Count 5.25 M/mm3 (4.60-6.20); Red Cell Distribution Width 19.9 % (11.5-17.5); White Blood Count 13.4 K/mm3 (4.8-10.8)
[2024-06-20 09:28] LABS: Albumin Level 4.2 g/dl (3.5-5.0); Chloride 104 mmol/L (98-107); Sodium 138 mmol/L (136-145)
[2024-06-20 09:29] LABS: Potassium 4.6 mmoL/L (3.5-5.1)
[2024-06-20 09:31] LABS: Alanine Aminotransferase 13 U/L (12-78); Albumin/Globulin Ratio 1.9 (1.1-1.8); Alkaline Phosphatase 100 U/L (38-126); Anion Gap 12.6 mEq/L (5-15); Aspartate Amino Transferase 20 U/L (17-59); Bilirubin,Total 0.6 mg/dl (0.2-1.3); Blood Urea Nitrogen 48 mg/dl (9-20); Calcium 8.3 mg/dl (8.4-10.2); Carbon Dioxide 26 mmol/L (22.0-30.0); Creatinine Clearance Estimated 29 mL/min (50-200); Estimated Glomerular Filt Rate 27 ml/min (>60); GFR (African American) 32 ML/MIN (>60); Globulin 2.2 g/dL (1.3-3.2); Glucose 109 mg/dl (74-100); Total Protein,Serum 6.4 g/dl (6.3-8.2)
== END 2024-06-20 10:30 | disposition home or self-care (01) ==
LOC: INF 09:02
PROVIDERS: PCP Family Medicine; Visit Provider Internal Medicine Medical Oncology
DX: D45 Polycythemia vera (principal)
CPT/HCPCS: 36415; 80053; 85025

== ENCOUNTER 2024-08-14 06:27 | Outpatient (CLI) | payer MEDICARE, SELFPAY ==
--- NOTE | 2024-08-14 06:35 | US_ITS ---
FINAL REPORT CLINICAL HISTORY: AAA SCREENING DUE TO PERSONAL HISTORY OF NICOTINE DEPENDENCE FINDINGS: ULTRASOUND ABDOMINAL AORTA Findings: Sagittal and transverse images with Doppler exam was performed of the aorta. There is no evidence of abdominal aortic aneurysm. Aorta measures up to 1.3 cm. Mild plaque disease is noted. Proximal iliac vessels are normal in caliber. Incidental note is made of advanced splenomegaly measuring up to 20 cm. Aorta is patent by Doppler exam without gross stenosis. IMPRESSION: No evidence of aortic aneurysm Incidental splenomegaly. Reviewed, Interpreted and Dictated by Lisa Mccloud MD Transcribed by Celeste Jennings Authenticated and [facility]
--- NOTE | 2024-08-14 06:35 | CT_ITS ---
FINAL REPORT CLINICAL HISTORY: PERSONAL HISTORY OF NICOTINE DEPENDENCE former smoker quit 10 years ago, 2.5-3ppd x52 years COMPARISON: 10/29/2020 FINDINGS: CT CHEST LOW DOSE SCREENING HISTORY: Screening exam for lung cancer. 73-year-old male, former smoker who quit 10 years ago, [id number] history DOSE: CTDI vol: 2.90 mGy, DLP: 108.12 mGy*cm TECHNIQUE: Axial CT without IV contrast administration using low dose protocol. This study was performed with techniques to keep radiation doses as low as reasonably achievable, (ALARA). Individualized dose reduction techniques using automated exposure control or adjustment of mA and/or kV according to the patient's size were employed. No acute lung disease is present. No pulmonary lesions are seen suspicious for neoplasm. There is stable mild scarring in the right middle lobe and lingula. No pleural or pericardial effusion is seen. No adenopathy or mass lesion is present. Note is made of an aberrant right subclavian artery. There is also new splenomegaly when compared to the prior exam. The spleen is incompletely visualized, but does measure up to 17 cm in size, was previously 13.9 on the prior exam of 2020. IMPRESSION: No evidence of lung cancer Progressive splenomegaly, when compared to the prior exam of 2020. LUNG RADS CATEGORY 1S, the S designation for splenomegaly. RECOMMENDATION: 12 month LDCT follow up Reviewed, Interpreted and Dictated by Lisa Mccloud MD Transcribed by Bernadine Finley Authenticated and [facility]
[2024-08-14 08:42] LABS: Microscopic, Urine URINE MICROSCOPIC (MICROSCOPIC)
[2024-08-14 09:00] LABS: Hematocrit 45.1 % (42.0-52.0); Hemoglobin 13.4 g/dL (14.1-18.0); Mean Corpuscular HGB Conc 29.7 g/dL (31.8-35.4); Mean Corpuscular Hemoglobin 27.5 pg (27.0-31.2); Mean Corpuscular Volume 92.4 fl (80-94); Platelet Count 337 K/mm3 (142-424); Red Blood Count 4.88 M/mm3 (4.60-6.20); Red Cell Distribution Width 20.9 % (11.5-17.5); White Blood Count 10.1 K/mm3 (4.8-10.8)
[2024-08-14 09:35] LABS: Appearance,Urine CLEAR (Clear); Bilirubin,Urine Negative (Negative); Blood, Urine Negative (Negative); Color,Urine YELLOW (Yellow); Glucose,Urine (UA) Negative (Negative); Ketones,Urine Negative (Negative); Leukocyte Esterase,Urine 1+ (Negative); Nitrate,Urine Negative (Negative); PH,Urine 5.5 (5.0-8.5); Protein,Urine Negative (Negative); Specific Gravity, Urine 1.015 (1.005-1.030); Urobilinogen,Urine 0.2 EU/dl (0.2)
[2024-08-14 09:53] LABS: Creatinine,Urine Random 64 mg/dL (Not Estab.)
[2024-08-14 09:56] LABS: Microalbumin/Creatinine Ratio 101.5
[2024-08-14 10:04] LABS: Albumin Level 3.9 g/dl (3.5-5.0); Anion Gap 12.2 mEq/L (5-15); Blood Urea Nitrogen 45 mg/dl (9-20); Calcium 8.7 mg/dl (8.4-10.2); Carbon Dioxide 27 mmol/L (22.0-30.0); Chloride 103 mmol/L (98-107); Estimated Glomerular Filt Rate 28 ml/min (>60); GFR (African American) 34 ML/MIN (>60); Glucose 106 mg/dl (74-100); Phosphorous 4.3 mg/dl (2.5-4.5); Sodium 136 mmol/L (136-145)
[2024-08-14 10:17] LABS: Intact Parathyroid Hormone 103.1 pg/mL (7.5-53.5)
[2024-08-14 10:31] LABS: Bacteria,Urine 2+ /lpf
[2024-08-14 11:51] LABS: 25-OH Vitamin D, Total 31.8 ng/mL (30-100)
[2024-08-14 12:20] LABS: Potassium 6.2 mmoL/L (3.5-5.1)
== END 2024-08-14 23:59 | disposition home or self-care (01) ==
PROVIDERS: PCP Family Medicine; Visit Provider Student in an Organized Health Care Education/Training Program
DX: Z87.891 Personal history of nicotine dependence (principal); N18.32 Chronic kidney disease, stage 3b; E83.9 Disorder of mineral metabolism, unspecified; M89.9 Disorder of bone, unspecified
CPT/HCPCS: 36415; 71271; 76770; 80069; 81001; 82043; 82306; 82570; 83970; 84156; 85027; 87086

== ENCOUNTER 2024-09-04 08:50 | Outpatient (CLI) | payer MEDICARE, SELFPAY ==
[2024-09-04 09:41] LABS: Blood Urea Nitrogen 50 mg/dl (9-20); Calcium 8.2 mg/dl (8.4-10.2); Carbon Dioxide 28 mmol/L (22.0-30.0); Chloride 104 mmol/L (98-107); Estimated Glomerular Filt Rate 27 ml/min (>60); GFR (African American) 32 ML/MIN (>60); Glucose 108 mg/dl (74-100); Phosphorous 4.1 mg/dl (2.5-4.5); Sodium 137 mmol/L (136-145)
== END 2024-09-04 23:59 | disposition home or self-care (01) ==
LOC: LAB 08:50
PROVIDERS: PCP Family Medicine; Visit Provider Student in an Organized Health Care Education/Training Program
DX: E87.5 Hyperkalemia (principal)
CPT/HCPCS: 36415; 80069

== ENCOUNTER 2024-12-19 10:02 | Outpatient (CLI) | payer MEDICARE, SELFPAY ==
--- OUTSIDE RECORDS SUMMARY | 2024-05-13 08:30 | XMS_ITS ---
Author Organization Mary[facility]Shashank Address 1210 [facility] 36 [facility] [address] [place] [id number] Care Team Providers Care Fabric Worker Leader Name Role Phone Mario Alberto Marshall Primary Care Provider [phone] Results Component Value Reference Range Notes P-Potassium Reviewed date:05/14/2024 09:34:43 AM Interpretation:5.7 Performing Lab: Notes/Report: Test performed by [employer], [employer] [address] [place] [address] , [address], [place] [address] Calin Brothers MD, Dope Pourer CLIA: [id number] Potassium 5.7 3.5-5.3 mmol/L REASON FOR VISIT lab draw Encounters Encounter Location Date Provider Diagnosis [facility] [address] [facility] [address] [place] [id number] 05/13/2024 Mario Alberto Marshall Hyperkalemia E87.5 Assessments Encounter Date Diagnosis (ICD Code) Assessment Notes Treatment Notes Treatment Clinical Notes Section Notes 05/13/2024 Hyperkalemia (ICD-10 - E87.5) Plan Of Treatment Next Appt Details Provider Name:Mario Alberto Rodriguez, 01/23/2025 10:00:00 AM, [address] [facility], [address], [place], [id number], Progress Notes * Jonny CODY LDOB: 0 (74 yo M)Acc No.[id number]:05/13/2024 Patient: Jonny SCHWARZ Provider: Mario Alberto Marshall M.D. :1950 A ge:73 Y S ex:Male Date:05/13/2024 Address:[address], [facility], [id number] Subjective: * Chief Complaints: * 1 . [...] signature of Mario Alberto Marshall MD on 12/19/2024 at 10:09 AM EDT Sign off status: Pending * Provider: Mario Alberto Marshall M.D. Date: Generated for Antonio bland/Ronel/Dulceitting on: 0 12/19/2024 10:09 AM EDT
--- OUTSIDE RECORDS SUMMARY | 2024-07-25 06:00 | XMS_ITS ---
Author Organization [facility] [address] [facility] [address] [place] [id number] Care Team Providers Care Paint Spray Inspector Name Role Phone Mario Alberto Marshall Primary Care Provider [phone] Allergies No Known Allergies Results Component Value [...] Provider Diagnosis Unique [address] [facility] [address] [place] [id number] 07/25/2024 Mario Alberto Marshall Adult general medica [...] 6 Months, Reason: Provider Name:Mario Alberto Rodriguez, 01/23/2025 10:00:00 AM, [address], [address], [place], [place], [id number], Progress Notes * Jonny CODY LDOB: 0 (74 yo M)Acc No.[id number]:07/25/2024 Annual Wellness Visit Patient: Jonny SCHWARZ Dayan Provider: Mario Alberto Marshall M.D. :1950 A ge:73 Y S ex:Male Date:07/25/2024 Address:[address] [place] [address], A pt B, [facility] Subjective: * Chief Complaints: * 1 . 3 month check and AWV. * HPI: H PI: 73 year old male presents with c/o Patient is here today for?Pt is here today for a 3 m [facility] check up and Medicare Annual Wellness [...] yperuricemia - E79.0 ? 9 . B [place] 26.0-26.9,adult - Z68.26 Plan: * Treatment: 2. [...] AM > no auth required; CPT code 50117; faxed to [facility] Radha Lee 07/25/2024 11:13:03 AM > Appt, [...] * Images: Billing Information: * Visit Code: 86867 Office Visit, Est Pt., Level 3. Modifiers: [...] 0 07/25/2024 Generated for Antonio bland/Ronel/Dulceitting on: 0 12/19/2024 10:09 AM EDT History and Physical Notes * HPI (History [...]
--- OUTSIDE RECORDS SUMMARY | 2024-12-19 10:09 | XMS_ITS | Patient Health Record ---
Author Organization [facility] Address [address] [facility] [address] [place] [id number] Care Team Providers Care Senior Sql Developer Name Role Phone Rolando Mario Alberto Juanjo Primary Care Provider [phone] Allergies No Known Allergies Results Component Value Reference Range Notes P-Potassium Reviewed date:05/14/2024 09:34:43 AM Interpretation:5.7 Performing Lab: Notes/Report: Test performed by [facility] [address] [place], [place] [address]mGaadi Felda , [address], [place] [address] Calin Brothers MD, [place] CLIA: [id number] Potassium 5.7 3.5-5.3 mmol/L CT Scan : Chest, low dose Reviewed date:10/29/2024 08:47:06 AM Interpretation:no suspicious lesions; known splenomegaly Performing Lab: Notes/Report: no suspicious lesions; known splenomegaly Ultrasound : Aorta Reviewed date:09/18/2024 12:02:27 AM Interpretation:negative, incidental splenomegaly Performing Lab: Notes/Report: negative, incidental splenomegaly P-Uric Acid Reviewed date:04/26/2024 12:10:09 PM Interpretation: Performing Lab: Notes/Report: Test performed by [facility] [address] [place], [place] [address]mGaadi Felda , [address], [place] [address] Calin Brothers MD, [place] CLIA: [id number] Uric Acid 7.7 3.4-8.0 mg/dL P-TSH Reviewed date:04/26/2024 12:10:09 PM Interpretation: Performing Lab: Notes/Report: Test performed by [facility] [address] [place], [place] [address]mGaadi Felda , [address], [place] [address] Calin Brothers MD, [place] CLIA: [id number] TSH 4.10 0.43-5.25 mU/L P-PSA Reviewed date:04/26/2024 12:10:09 PM Interpretation: Performing Lab: Notes/Report: Test performed by [facility] [address] [place] [address] [address], [place] [address] Calin Brothers MD, [place] CLIA: [id number] PSA 1.78 <4.00 ng/mL Please note this is an ultrasensitive PSA assay with a lower limit of detection of 0.014 ng/mL. This test is performed by the Rox[employer] ECLIA methodology. Values obtained with different assay methods or kits cannot be directly compared. P-Comprehensive Metabolic Pa kelton (CMP) Reviewed date:04/26/2024 12:10:09 PM Interpretation: Performing Lab: Notes/Report: Test performed by [facility] [address] [place] [address] [address] , [place] [address] Calin Brothers MD, [place] CLIA: [id number] Sodium 137 135-145 mmol/L Potassium 6.8 3.5-5.3 [...] 0.6 <0.2-1.2 mg/dL A/G Ratio 1.6 1.1-2.5 P-Basic Metabolic Panel (BMP ) Reviewed date:02/08/2024 08:39:05 AM Interpretation:gluc 122, bun 31, Cr 2.01, Ca 8.5, gfr 34 Performing Lab: Notes/Report: Test performed by [facility] [address] [place] [address] [address], [place] [address] Calin Brothers MD, [place] CLIA: [id number] Sodium 140 135-145 mmol/L Potassium 5.3 3.5-5.3 mmol/L Chloride 104 97-108 mmol/L CO2 28 22-32 mmol/L Glucose 122 65-99 mg/dL BUN 31 8-23 mg/dL Creatinine 2.01 0.70-1.30 mg/dL Calcium 8.5 8.6-10.4 mg/dL eGFR by Creatinine 34 >59 mL/min/1.73m2 P-Basic Metabolic Panel (BMP ) Reviewed date:01/28/2024 06:51:01 PM Interpretation:K 6.0, BUN 25, CO2 21, Creat 1.72, eGFR 41 Performing Lab: Notes/Report: Test performed by [facility] [address] [place] [address] , [place] [address] Calin Brothers MD, [place] CLIA: [id number] Sodium 139 135-145 mmol/L Potassium 6.0 3.5-5.3 mmol/L Chloride 105 97-108 mmol/L CO2 21 22-32 mmol/L Glucose 83 65-99 mg/dL BUN 25 8-23 mg/dL Creatinine 1.72 0.70-1.30 mg/dL Calcium 8.6 8.6-10.4 mg/dL eGFR by Creatinine 41 >59 mL/min/1.73m2 P-TSH Reviewed date:01/28/2024 06:51:01 PM Interpretation:4.28 Performing Lab: Notes/Report: Test performed by [facility] [address] [place] [address] [place] [address] Calin Brothers MD, [place] CLIA: [id number] TSH 4.28 0.43-5.25 mU/L P-Uric Acid Reviewed date:01/28/2024 06:51:01 PM Interpretation:6.6 Performing Lab: Notes/Report: Test performed by [facility] [address] [place] [address] [place] [address] Calin Brothers MD, [place] CLIA: [id number] Uric Acid 6.6 3.4-8.0 mg/dL Medications Medication SIG (Take, Route, Frequency, Duration) Notes Start Date End Date Status Furosemide 20 MG 1 tablet Orally Once a day Active Bisoprolol Fumarate 10 MG 1 tab(s) orall y once a day Active Loperamide HCl 2 MG 1 cap(s) Orally four times a day as needed 07/28/2023 Active Allopurinol 100 MG 1 tab(s) orally 2 ti mes a day Active Venlafaxine HCl 150 MG 1 TAB DAILY Active Flomax 0.4 MG 2 cap(s) orally once a day; Duration: 90 days Active Venlafaxine HCl 75 MG 1 tab orally daily Active Hydroxyurea 500 MG as directed orally o nce a day Active Synthroid 75 MCG 1 tab(s) Orally once a day Active ARIPiprazole 5 MG 1 tab(s) orally once a day Active Aspirin Adult Low Dose 81 MG 1 tab(s) orally once a day; Duration: 30 day(s) Active Kionex 15 GM/60ML 60 mL orally 3 times a week (M,W,F) 04/26/2024 Active Immunizations Vaccine Route Administration Date Status Comme nts Prevnar (PCV20) IM Intramuscular 10/22/2021 Administered PNEUMOVAX 23 VACCINE IM Intramuscular 04/27/2023 Administe red Fluzone High Dose (65yr and older) IM Intramuscular 04/23/2021 Administered Fluzone High Dose (65yr and older) Unknown 03/07/2022 Administered Fluzone High Dose (65yr and older) IM Intramuscular 04/27/2023 Administered Fluzone High Dose (65yr and older) IM Intramuscular 04/25/2024 Administered COVID 19 Moderna Unknown 07/09/2020 Administered COVID 19 Moderna Unknown 07/31/2020 Administered COVID 19 Moderna Unknown 03/07/2021 Administered COVID 19 Moderna Unknown 11/18/2021 Administered Problems Problem Type SNOMED Code ICD Code Onset Dates Problem Status W/U Status Risk Notes Problem Hypertension (34450637) HTN (hypertension) (I10) Active confirmed Problem Cardiac dysrhythmia (926856476) Cardiac dysrhythmia (I49.9) Active confirmed Problem Mixed anxiety and depressive disorder (584593680) Depression with anxiety (F41.8) Active confirmed Problem Dysphagia (10478854) Dysphagia (R13.10) Active confirmed Problem Polycythemia vera (044463324) Polycythemia vera (D45) Active confirmed Problem Nicotine dependence (94026476) Personal history of nicotine dependence (Z87.891) Active confirmed Problem Gastroesophageal reflux disease without esophagitis (820420680) Gastroesophageal reflux disease without esophagitis (K21.9) Active confirmed Problem Hypothyroidism (08104646) Hypothyroidism (E03.9) Active confirmed Problem Irritable bowel syndrome (97966286) Irritable bowel syndrome (K58.9) Active confirmed Problem Thrombocytosis (7995080) Thrombocytosis (D47.3) Active confirmed Problem Lower urinary tract symptoms due to benign prostatic hypertrophy (01538014872640) Benign prostatic hyperplasia with lower urinary tract symptoms (N40.1) Active confirmed Problem Chronic kidney disease stage 3B (disorder) (715144828) Stage 3b chronic kidney disease (N18.32) Active confirmed Vital Signs Heart Rate 48 /min 07/25/2024 Blood pressure diastolic 60 mm Hg 07/25/2024 Height 66.50 in 07/25/2024 Blood pressure systolic 124 mm Hg 07/25/2024 Weight 168.4 lbs 07/25/2024 BMI 26.77 kg/m2 07/25/2024 Encounters Encounter Location Date Provider Diagnosis [facility] [address] [facility] [address] [place] [id number] 01/25/2024 R Juanjo Marshall Peripheral edema R60 .0 ; Cardiac dysrhythmia I49.9 ; Hypothyroidism E03.9 ; Hyperuricemia E79.0 ; Polycythemia vera D45 and Benign prostatic hyperplasia with lower urinary tract symptoms N40.1 [facility] [address] [facility] [address] [place] [id number] 02/05/2024 R Juanjo Marshall HTN (hypertension) I 10 ; Stage 3b chronic kidney disease N18.32 and Hyperkalemia E87.5 [facility] [address] [place] [id number] 04/25/2024 R Juanjo Marshall Hypothyroidism E03.9 ; Stage 3b chronic kidney disease N18.32 ; Polycythemia vera D45 ; Benign prostatic hyperplasia with lower urinary tract symptoms N40.1 ; Personal history of nicotine dependence Z87.891 ; HTN (hypertension) I10 ; Neoplasm of uncertain behavior of skin D48.5 ; Hyperuricemia E79.0 and Encounter for immunization Z23 [facility] [address] [facility] [address] [place] [id number] 05/13/2024 R Juanjo Rolando Hyperkalemia E87.5 [facility] [address] [place], [place] [id number] 07/25/2024 R Juanjo Rolando Adult general medica l examination Z00.00 ; Hypothyroidism E03.9 ; Stage 3b chronic kidney disease N18.32 ; Polycythemia vera D45 ; Benign prostatic hyperplasia with lower urinary tract symptoms N40.1 ; Personal history of nicotine dependence Z87.891 ; HTN (hypertension) I10 ; Hyperuricemia E79.0 and BMI 26.0-26.9,adult Z68.26 [facility] [address] [place], [place] [id number] 01/26/2024 R Juanjo Rolando [facility] [address] [facility] [address] [place] [id number] 02/08/2024 R Juanjo Rolando [facility] [address] [place] [id number] 04/26/2024 R Juanjo Rolando High potassium E87.5 [facility] [address] [place] [id number] 04/26/2024 R Juanjo Rolando [facility] [address] [facility] [address] [place] [id number] 05/14/2024 R Juanjo Rolando [facility] [address] [facility] [address] [place] [id number] 09/04/2024 R Juanjo Rolando [facility] [address] [facility] [address] [place] [id number] 09/18/2024 R Juanjo Rolando Assessments Encounter Date Diagnosis (ICD Code) Assessment Notes Treatment Notes Treatment Clinical Notes Section Notes 01/25/2024 Cardiac dysrhythmia (ICD-10 - I49.9) 01/25/2024 Peripheral edema (ICD-10 - R60.0) 02/05/2024 HTN (hypertension) (ICD-10 - I10) 02/05/2024 Stage 3b chronic kidney disease (ICD-10 - N18.32) 04/25/2024 Hypothyroidism (ICD-10 - E03.9) 04/25/2024 Stage 3b chronic kidney disease (ICD-10 - N18.32) 04/26/2024 High potassium (ICD-10 - E87.5) 07/25/2024 Hypothyroidism (ICD-10 - E03.9) 07/25/2024 Adult general medical examination (ICD-10 - Z00.00) Patient instructed to return to office Annually for Annual Wellness Visits to include annual screenings of Pain assessment, Functional Ability assessment, Cognitive Ability assessment, Fall Risk assessment, Depression screening and Bladder control screening. 07/25/2024 Stage 3b chronic kidney disease (ICD-10 - N18.32) Continue follow-up with nephrology 05/13/2024 Hyperkalemia (ICD-10 - E87.5) 04/25/2024 Polycythemia vera (ICD-10 - D45) 02/05/2024 Hyperkalemia (ICD-10 - E87.5) 01/25/2024 Hypothyroidism (ICD-10 - E03.9) 01/25/2024 Hyperuricemia (ICD-10 - E79.0) 04/25/2024 Benign prostatic hyperplasia with lower urinary tract symptoms (ICD-10 - N40.1) 07/25/2024 Polycythemia vera (ICD-10 - D45) Continue follow-up with Dr. Holder 07/25/2024 Benign prostatic hyperplasia with lower urinary tract symptoms (ICD-10 - N40.1) 04/25/2024 Personal history of nicotine dependence (ICD-10 - Z87.891) 01/25/2024 Polycythemia vera (ICD-10 - D45) 01/25/2024 Benign prostatic hyperplasia with lower urinary tract symptoms (ICD-10 - N40.1) 04/25/2024 HTN (hypertension) (ICD-10 - I10) 07/25/2024 Personal history of nicotine dependence (ICD-10 - Z87.891) 04/25/2024 Neoplasm of uncertain behavior of skin (ICD-10 - D48.5) 07/25/2024 HTN (hypertension) (ICD-10 - I10) 07/25/2024 Hyperuricemia (ICD-10 - E79.0) 04/25/2024 Hyperuricemia (ICD-10 - E79.0) 07/25/2024 BMI 26.0-26.9,adult (ICD-10 - Z68.26) 04/25/2024 Encounter for immunization (ICD-10 - Z23) Plan Of Treatment Pending Test Test Name Order Date Cologuard 10/27/2022 CT SCAN : CHEST, LUNG CANCER SCREENING L OW DOSE 04/25/2024 Next Appt Details Provider Name:Mario Alberto Juanjo Romero et, 01/23/2025 10:00:00 AM, [address], [address], [place], [place], [id number], Insurance Providers Payer Name Payer Address Payer Phone Subscriber Number Group Number Insured Name Patient Relationship to Insured Coverage Start Date Coverage End Date [employer] (MEDICAR E) [address] [address] [place] [address] [id number] Jonny Spivey Self - patient is the insured Medications Administered Medication Instructions Date of Administration Dosage Notes Dexamethasone 08/08/2017 1 mL Dexamethasone 04/21/2020 1 mL Dexamethasone 06/15/2023 1 mL Medical (General) History Medical History History ICD Code Anxiety disorder Large inguinal hernia Benign Prostatic Hyperplasia Hypertension Declines Immunizations 10/2016. 04/2019 COLOGUARD - negative 10/2016 Polycythemia vera - Dr Watson Hyperuricemia CKD - stage 3 Esophageal stricture Surgical History Surgery Date(Month/Year) RT Arm- foreign body removed LT Inguinal Hernia Repair - Dr. Cochran EGD with esophageal dilatation 10/13/2023 Hospitalization History Reason Date(Month/Year)
--- OUTSIDE RECORDS SUMMARY | 2024-12-19 10:09 | XMS_ITS | Encounter Summary ---
Author Organization [facility] Address [address] [place] [address] Care Team Providers Care Correctional Probation Officer Name Role Phone Samuel Marshall MD Primary Care Provider [phone] Reason for Visit * Reason Comments Med Refill Encounter Details Date Type Department Care Team (Late Contact Info) Description 12/08/2024 Refill [facility] [address] [facility] [address] [place] [address] Ben Lozada MD [address] [place] [address] Edema due to hypervolemia; Hypervolemia associated with renal insufficiency Social History Tobacco Use Types Packs/Day Years Used Date Smoking Tobacco: Former Cigarettes Q uit: 05/13/1984 Passive Smoke Exposure: Past Smokeless Tobacco: Never Comments:He smoked 2.5 - 3 p acks a day for 40 years. He stopped smoking in 2009 Alcohol Use Standard Drinks/Week Comments Not Currently 0 (1 standard drink = 0.6 oz pure alcohol) Alcoholic Drinks/day: History of alcohol use PHQ-2 Answer Date Recorded Patient Health Questionnaire-2 Score 0 05/13/2024 Sex and Gender Information Value Date Recorded Sex Assigned at Not on file Legal Sex Male 8:02 PM EDT Gender Identity Not on file Sexual Orientation Not on file documented as of this encounter Plan of Treatment Upcoming Encounters Date Type Department Care Team (Late Contact Info) Description 12/27/2024 9:20 AM EDT Office Visit [facility] [address] [place] [address] Ben Lozada MD [address] [place] [address] documented as of this encounter Visit Diagnoses Diagnosis Edema due to hypervolemia Hypervolemia associated with renal insufficiency documented in this encounter Additional Health Concerns Assessment Noted Time A fall risk assessment has been complete d for the patient 05/13/2024 11:01 AM EST A Body Mass Index follow-up plan has been documented for the patient 08/16/2024 11:50 AM EDT documented as of this encounter Care Teams Correctional Probation Officer Relationship Specialty Start Date End Date Samuel Marshall MD [address] [place] [address] PCP - General 09/25/20 documented as of this encounter
--- OUTSIDE RECORDS SUMMARY | 2024-12-19 10:09 | XMS_ITS | Clinical Summary ---
Author Organization [facility] Address [address] [place] [address] Care Team Providers Care Sheeter Operator Name Role Phone Samuel Marshall MD Primary Care Provider [phone]- [phone] Allergies No known active allergies Medications allopurinol (Zyloprim) 100 MG tablet Take 1 tablet (100 mg) by mouth 2 (two) times a day. Active ARIPiprazole (Abilify) 5 MG tablet Take 1 tablet (5 mg) by mouth Daily. 02/20/20 18 Active aspirin 81 MG EC tablet Take 1 tablet (81 mg) by mouth Daily. Active bisoprolol (Zebeta) 10 MG tablet Take 1 tablet (10 mg) by mouth Daily. 02/20/20 18 Active hydroxyurea (Hydrea) 500 MG capsule 1 (one) time each day at the same time. 07/09/19 19 Active Synthroid 75 MCG tablet Take 1 tablet (75 mcg) by mouth Daily. Active Flomax 0.4 MG 24 hr capsule 1 (one) time each day at the same time. 02/20/20 18 Active venlafaxine XR (Effexor-XR) 150 MG 24 hr capsule Take 1 capsule (150 mg) by mouth 1 (one) time each day. Active venlafaxine XR (Effexor-XR) 75 MG 24 hr capsule TAKE 1 CAPSULE BY MOUTH ONCE DAILY WITH 150 MG VENLAFAXINE 04/18/20 24 Active torsemide (Demadex) 20 MG tabletIndication s:Edema due to hypervolemia,Hyp ervolemia associated with renal insufficiency Take 2 tablets by mouth once daily 180 tablet 3 12/13/19 25 Active torsemide 40 MG tabletIndication s:Edema due to hypervolemia,Hyp ervolemia associated with renal insufficiency Take 40 mg by mouth daily. 60 tablet 3 08/17/19 25 2024 Discontinued Active Problems Problem Noted Date Diagnosed Date Edema due to hypervolemia 05/13/2024 CKD stage 3b, GFR 30-44 ml/min 05/13/2024 Chronic kidney disease-mineral and bone disorder (CKD-MBD) 05/13/2024 Hyperkalemia 05/13/2024 Elevated alkaline phosphatase level 05/13/2024 Encounters Date Type Department Care Team Description 12/08/2024 [facility] [address] [facility] [address] [place] [address] Ben Lozada MD Edema due to hypervolemia; Hypervolemia associated with renal insufficiency from Last 3 Months Immunizations Immunization Administration Dates Next Due Influenza, high-dose, quadrivalent 04/25/2024,,04/23/2021 Pneumococcal 20-som Conj Vaccine 10/22/2021 Pneumococcal Polysaccharide PPV23 04/27/2023 Family History Medical History Relation Name Comments Alzheimer's disease Father Hip fracture Father Dementia Mother Diabetes Mother Hypertension Mother Osteoporosis Mother Relation Name Status Comments Father Mother Social History Tobacco Use Types Packs/Day Years Used Date Smoking Tobacco: Former Cigarettes Q uit: 05/13/1984 Passive Smoke Exposure: Past Smokeless Tobacco: Never Tobacco Cessation:Counseling Given: Not Answered Comments:He smoked 2.5 - 3 packs a day for 40 years. He stopped [...] on file Sexual Orientation Not on file Last Filed Vital Signs Vital Sign Reading Time Taken Comments Blood Pressure 136/79 08/16/2024 11:20 AM EDT Pulse 71 08/16/2024 11:20 AM EDT Temperature 36.4 C (97.6 F) 05/13/2024 10:59 AM EST Respiratory Rate 18 08/16/2024 11:20 AM EDT Oxygen Saturation 100% 08/16/2024 11:20 AM EDT Inhaled Oxygen Concentration - - Weight 78.9 kg (174 lb) 08/16/2024 11:20 AM EDT Height 170.2 cm (5' 7 ) 08/16/2024 11:20 AM EDT Body Mass Index 27.25 08/16/2024 11:20 AM EDT Plan of Treatment Upcoming Encounters Date Type Department Care Team (Late st Contact Info) Description 12/27/2024 9:20 AM EDT Office Visit [facility] [address] [place] [address] Ben Lozada MD [address] [place] [address] Health Maintenance Due Date Last Done Comments [facility]-Diabetes: Hemoglobin A1C 1950 [facility]-Hepatitis C Screening 1950 [facility]-Medicare Annual Wellness (AWV) 1950 [facility]-/Child/Adol SDOH Screenings 1950 Diabetes: Dental Exam 09/13/1959 [facility]- SDOH Screenings 09/13/1967 [facility]-Adult SDOH Screenings 09/13/1967 [facility]-DTaP,Tdap,and Td Vaccines (1 - Tdap) 1968 [facility]-Zoster Vaccines (1 of 2) 1968 CT Colonography 1994 Colonoscopy 1994 FIT-DNA 1994 FIT 1994 FOBT 1994 Sigmoidoscopy 1994 [facility]-Colorectal Cancer Screening 1994 [facility]-Abdominal Aortic Aneurysm (AAA) Screening 2014 [id number] Vaccine (2023- season) 2024 02/06/2022, 11/18/2021, 03/07/2021, Additional history exists [facility]-RSV Vaccine: 60+ Years or (1 - 1-dose 75+ series) 2024 [facility]-Influenza Vaccine (#1) 01/13/202504/25, 03/07/2022, 04/23/2021 [facility]-Depression Screening 05/13/2025 05/13/2024 [facility]-Pneumococcal Vaccine: 50+ Years Completed 04/27/2023, 10/22/2021 [facility]-Obesity Intervention Completed 08/16/2024, 04/16 HPV Vaccines Aged Out No longer eligi ble based on patient's age to complete this topic [facility]-HIB Vaccines Aged Out No longer e ligible based on patient's age to complete this topic [facility]-Hepatitis A Vaccines Aged Out No longer eligible based on patient's age to complete this topic [facility]-IPV Vaccines Aged Out No longer e ligible based on patient's age to complete this topic [facility]-Rotavirus Vaccines Aged Out No lo nger eligible based on patient's age to complete this topic Insurance [employer] MEDICARE Care Teams Sheeter Operator Relationship Specialty Start Date End Date Samuel Marshall MD [address] [place] [address] PCP - General 09/25/20
[2024-12-19 10:35] LABS: Hematocrit 39.2 % (42.0-52.0); Hemoglobin 11.6 g/dL (14.1-18.0); Immature Granulocytes % 5.5 %; Mean Corpuscular HGB Conc 29.6 g/dL (31.8-35.4); Mean Corpuscular Hemoglobin 29.1 pg (27.0-31.2); Mean Corpuscular Volume 98.2 fl (80-94); Nucleated Red Blood Cells % 0.3 %; Platelet Count 307 K/mm3 (142-424); Red Blood Count 3.99 M/mm3 (4.60-6.20); Red Cell Distribution Width-SD 63.7 fL; White Blood Count 10.0 K/mm3 (4.8-10.8)
[2024-12-19 11:00] LABS: Albumin Level 3.9 g/dl (3.5-5.0); Anion Gap 10.6 mEq/L (5-15); Blood Urea Nitrogen 42 mg/dl (9-20); Calcium 8.4 mg/dl (8.4-10.2); Carbon Dioxide 26 mmol/L (22.0-30.0); Chloride 105 mmol/L (98-107); Creatinine,Serum 2.40 mg/dl (0.66-1.25); Estimated Glomerular Filt Rate 27 ml/min (>60); GFR (African American) 32 ML/MIN (>60); Glucose 140 mg/dl (74-100); Phosphorous 4.3 mg/dl (2.5-4.5); Potassium 4.6 mmoL/L (3.5-5.1); Sodium 137 mmol/L (136-145)
[2024-12-19 11:01] LABS: Alanine Aminotransferase 10 U/L (12-78); Albumin Level 3.9 g/dl (3.5-5.0); Albumin/Globulin Ratio 2.4 (1.1-1.8); Alkaline Phosphatase 94 U/L (38-126); Anion Gap 12.7 mEq/L (5-15); Aspartate Amino Transferase 20 U/L (17-59); Bilirubin,Total 0.5 mg/dl (0.2-1.3); Blood Urea Nitrogen 42 mg/dl (9-20); Calcium 8.4 mg/dl (8.4-10.2); Carbon Dioxide 25 mmol/L (22.0-30.0); Chloride 105 mmol/L (98-107); Creatinine,Serum 2.40 mg/dl (0.66-1.25); Estimated Glomerular Filt Rate 27 ml/min (>60); GFR (African American) 32 ML/MIN (>60); Globulin 1.6 g/dL (1.3-3.2); Glucose 141 mg/dl (74-100); Potassium 4.7 mmoL/L (3.5-5.1); Sodium 138 mmol/L (136-145); Total Protein,Serum 5.5 g/dl (6.3-8.2)
[2024-12-19 11:34] LABS: Total Cells Counted 100
[2024-12-19 11:36] LABS: Hypochromasia 1+
== END 2024-12-19 23:59 | disposition home or self-care (01) ==
LOC: LAB 10:03
PROVIDERS: Student in an Organized Health Care Education/Training Program; PCP Family Medicine; Visit Provider Internal Medicine Medical Oncology
DX: I12.9 Hypertensive chronic kidney disease with stage 1 through stage 4 chronic kidney disease, or unspecified chronic kidney disease (principal); N18.32 Chronic kidney disease, stage 3b; E87.5 Hyperkalemia; D45 Polycythemia vera
CPT/HCPCS: 36415; 80053; 80069; 85007; 85025

== ENCOUNTER 2025-03-27 09:17 | Outpatient (CLI) | payer MEDICARE, SELFPAY ==
--- OUTSIDE RECORDS SUMMARY | 2023-09-29 09:00 | XMS_ITS ---
Author Organization [facility] Address [address] [facility] [facility] [address] [place] [id number] Care Team Providers Care Pathologist Name Role Phone RolandoMario Alberto Primary Care Provider Wolfgang Mirza Unavailable [phone] Allergies No Known Allergies Results Component Value Reference Range Notes CBC Venipuncture (in house) Reviewed date:10/02/2023 09:49:39 AM Interpretation: Performing Lab: Notes/Report: wbc 9.7 3.5 - 10 lymph 13.4 15 - 50 mid 4.3 2 - 15 gran 82.3 35 - 80 rbc 3.66 3.5 - 5.5 hgb 10.3 11.5 - 16.5 hct 33.0 35 - 55 mcv 90.0 75 - 100 mch 28.2 25 - 35 mchc 31.4 31 - 38 platlet 506 100 - 400 P-Vitamin B12 Reviewed date:10/05/2023 09:38:48 AM Interpretation:Normal Performing Lab: Notes/Report: Test performed by [facility] [address] [place] [address] , [address], [place] [address] Calin Brothers MD, Retread Technician CLIA: [id number] Vitamin B12 912 015-4176 pg/mL P-Comprehensive Metabolic Pa kelton (CMP) Reviewed date:10/05/2023 09:38:48 AM Interpretation:creat 1.81, Ca 8.5, gfr 39, alk phos 134 Performing Lab: Notes/Report: Test performed by [facility] [address] [place], [place] [address] , [address], [place] [address] Calin Brothers MD, Retread Technician CLIA: [id number] Sodium 138 135-145 mEq/L Potassium 5.3 3.5-5.3 mEq/L Chloride 104 97-108 mEq/L CO2 23 22-32 mEq/L Glucose 98 65-99 mg/dL BUN 20 8-23 mg/dL Creatinine 1.81 0.70-1.30 mg/dL Calcium 8.5 8.6-10.4 mg/dL eGFR by Creatinine 39 >59 mL/min/1.73m2 Protein 6.1 6.0-8.3 g/dL Albumin 4.0 3.5-5.3 g/dL Alkaline Phosphatase 134 40-129 IU/L ALT (SGPT) 6 <5-55 IU/L AST (SGOT) 15 <5-46 IU/L Bilirubin, Total 0.7 <0.2-1.2 mg/dL A/G Ratio 1.9 1.1-2.5 mg/dL P-T4 Free (thyroxine) Reviewed date:10/05/2023 09:38:48 AM Interpretation:Normal Performing Lab: Notes/Report: Test performed by [facility] [address] [place] [address] , [place] [address] Calin Brothers MD, Retread Technician CLIA: [id number] Thyroxine Free (free T4) 1.58 0.86-1.76 ng/dL P-TSH Reviewed date:10/05/2023 09:38:49 AM Interpretation:Normal Performing Lab: Notes/Report: Test performed by [facility] [address] [place] [address] , [address], [place] [address] Calin Brothers MD, Retread Technician CLIA: [id number] TSH 1.73 0.43-5.25 mU/L P-Uric Acid Reviewed date:10/05/2023 09:38:49 AM Interpretation:11.1 Performing Lab: Notes/Report: Test performed by [facility] [address] [place] [address] , [address], [place] [address] Calin Brothers MD, Retread Technician CLIA: [id number] Uric Acid 11.1 3.4-8.0 mg/dL P-Vitamin B1 (Thiamine), Ser um/Plasma, LC/MS/MS Reviewed date:10/05/2023 09:38:49 AM Interpretation:3 Performing Lab: Notes/Report: Vitamin B1 (Thiamine), Serum/Plasma, LC/MS/MS 3 4-15 nmol/L INTERPRETIVE DATA: Vitamin B1, Plasma Thiamine (vitamin B1) is reported. However, thiamine diphosphate (TDP), the biologically active form of thiamine, is not found in measurable concentrations in plasma, and is best determined in whole blood specimens. Plasma thiamine concentration reflects recent intake rather than body stores. This test was developed and its performance characteristics determined by [facility]. It has not been cleared or approved by the [place] Food and Drug Administration. This test was performed in a CLIA certified laboratory and is intended for clinical purposes. Performed By: [facility] [address] [place] [id number] Retread Technician: Narinder Malloy MD, PhD CLIA Number: [id number] REASON FOR VISIT sob, head congestion Medications Medication SIG (Take, Route, Frequency, Duration) Notes Start Date End Date Status Furosemide 20 MG 1 tablet Orally Once a day; Duration: 30 day(s) Active Promethazine-DM 6.25-15 MG/5ML 5 ml as needed Orally every 6 hrs 09/29/2023 Active Cefdinir 250 MG/5ML 6 ml Orally Two time s a day; Duration: 10 day(s) 09/29/2023 Active Allopurinol 100 MG 1 tab(s) orally 2 times a day Not-Taking Synthroid 75 MCG 1 tab(s) Orally once a day Active Flomax 0.4 MG 2 cap(s) orally once a day; Duration: 90 days Active Loperamide HCl 2 MG 1 cap(s) Orally four times a day as needed 07/28/2023 Active metroNIDAZOLE 500 MG 1 tablet Orally Thr ee times a day 08/01/2023 Active ARIPiprazole 5 MG 1 tab(s) orally once a day Active Hydroxyurea 500 MG as directed orally once a day Active Venlafaxine HCl 75 MG 1 tab orally daily Active Venlafaxine HCl 150 MG 1 TAB DAILY Active Bisoprolol Fumarate 10 MG 1 tab(s) orall y once a day Active Aspirin Adult Low Dose 81 MG 1 tab(s) orally once a day; Duration: 30 day(s) Active Vital Signs Weight 159.6 lbs 09/29/2023 Blood pressure systolic 116 mm Hg 09/29/19 24 Blood pressure diastolic 68 mm Hg 024 Heart Rate 76 /min 09/29/2023 Height 66.50 in 09/29/2023 BMI 25.37 kg/m2 09/29/2023 Encounters Encounter Location Date Provider Diagnosis [facility] [address] [facility] [address] [facility] [address] [place] [id number] 09/29/2023 Wolfgang Mirza Acute cough R05.1 ; Hypothyroidism E03.9 ; Peripheral edema R60.0 ; Hyperkalemia E87.5 ; Fatigue, unspecified type R53.83 ; HTN (hypertension) I10 and Anemia, unspecified type D64.9 Assessments Encounter Date Diagnosis (ICD Code) Assessment Notes Treatment Notes Treatment Clinical Notes Section Notes 09/29/2023 Acute cough (ICD-10 - R05.1) 09/29/2023 Hypothyroidism (ICD-10 - E03.9) 09/29/2023 Peripheral edema (ICD-10 - R60.0) 09/29/2023 Hyperkalemia (ICD-10 - E87.5) 09/29/2023 Fatigue, unspecified type (ICD-10 - R53.83) 09/29/2023 HTN (hypertension) (ICD-10 - I10) 09/29/2023 Anemia, unspecified type (ICD-10 - D64.9) Incidental finding today, plan to recheck CBC at follow up visit in 3 weeks Plan Of Treatment Medication Medication Name Sig Start Date Stop Date Notes Furosemide 20 MG 1 tablet Orally Once a day; Duration: 30 day(s) Promethazine-DM 6.25-15 MG/5ML 5 ml as n eeded Orally every 6 hrs 09/29/2023 Cefdinir 250 MG/5ML 6 ml Orally Two time s a day; Duration: 10 day(s) 09/29/2023 Treatment Notes Assessment Notes Anemia, unspecified type Incidental find ing today, plan to recheck CBC at follow up visit in 3 weeks Next Appt Details Follow Up: as scheduled,and prn, Reason: Provider Name:Mario Alberto Rodriguez, 07/31/2025 10:15:00 AM, [address] [facility], [address], [place], [id number], Progress Notes * Jonny CODY LDOB: 0 (74 yo M)Acc No.[id number]:09/29/2023 Progress Notes Patient: Jonny SCHWARZ Provider: Josse Mirza M.D. :1950 A ge:73 Y S ex:Male Date:09/29/2023 Address:[address], [address], [facility], [id number] Pcp:Mario Alberto Marshall Subjective: * Chief Complaints: * 1 . Sob, head congestion. * HPI: E NT/respiratory: 73 year old male presents with c/o cough P t complains of dry without any sputum production for about 4 days. Associated with shortness of breath. Pt states he feels like he needs to get stuff out of his chest but is unable to and he feels like he cannot catch his breath. C ardiology: c/o Leg Edema P t complains of bilateral leg and feet swelling for a while. States he did take medication but ran out a while ago and is not sure of the name, spoke with pt's pharmacy and pt was rx'd Furosemide 20mg daily in March 2023 . E ndocrinology: c/o Fatigue P t complains of fatigue and low energy. Pt states he has also lost a lot of weight and would like to have his thyroid checked today. * ROS: D ERMATOLOGY: no R kimmie. n o H matilde. G ASTROENTEROLOGY: no N ausea. n o V omiting. U ROLOGY: no D ifficulty urinating. n o B lood in urine. * Medical History: A nxiety disorder, Large inguinal hernia, Benign Prostatic Hyperplasia, Hypertension, Declines Immunizations 10/2016. 04/2019, COLOGUARD - negative 10/2016, Polycythemia vera - Dr Wells, Hyperuricemia, CKD - stage 3. * Surgical History: R T Arm- foreign body removed , LT Inguinal Hernia Repair - Dr. Cochran 05/2023. * Hospitalization/Major Diagno stic Procedure: D enies Past Hospitalization. * Family History: F ather: , alzheimer. M other: , diabetes, HTN, dementia. 1 brother(s) , 3 sister(s) . 1 son(s) , 1 daughter(s) . . * Social History: C URRENT TOBACCO USE S moking Status: Patient does NOT smoke, Former Smoker: Yes, Quit smokin09/2011. C affeine: yes, frequency:daily. Home smoke detector use: yes. Marital Status: . Past smoking status: yes, Smoking status: Patient does not smoke now, Smoking preference: cigarettes. Alcohol: no. * Medications: T aking Aspirin Adult Low Dose 81 MG Tablet Delayed Release 1 tab(s) orally once a day , Taking Hydroxyurea 500 MG Capsule as directed orally once a day , Taking ARIPiprazole 5 MG Tablet 1 tab(s) orally once a day , Taking Venlafaxine HCl 150 MG TAB 1 TAB DAILY , Taking Venlafaxine HCl 75 MG Tablet 1 tab orally daily , Taking Bisoprolol Fumarate 10 MG Tablet 1 tab(s) orally once a day , Taking Synthroid 75 MCG Tablet 1 tab(s) Orally once a day , Taking Flomax 0.4 MG Capsule 2 cap(s) orally once a day , Taking metroNIDAZOLE 500 MG Tablet 1 tablet Orally Three times a day , Taking Loperamide HCl 2 MG Capsule 1 cap(s) Orally four times a day as needed , Not- Taking Furosemide 20 MG Tablet 1 tablet Orally Once a day , Not-Taking Allopurinol 100 MG Tablet 1 tab(s) orally 2 times a day , Discontinued Dicyclomine HCl 10 MG Capsule 1 cap(s) Orally three times a day as needed for stomach pain , Discontinued Cipro 500 MG Tablet 1 tablet Orally every 12 hrs , Medication List reviewed and reconciled with the patient * Allergies: N .K.D.A. Objective: * Vitals: W t:159.6, Temp:97.7, BP:116/68, HR:76, O2 Sat:93% on RA, Nurse:sammy, Ht: 66.50, BMI:25.37. * Examination: E NT/Respiratory: General Appearance: N AD. O ral cavity : erythema without exudate on pharynx. N ly : n o cervical lymphadenopathy. H eart : R RR, normal S1 S2. L ungs: c lear to auscultation bilaterally. Assessment: * Assessment: 1. A cute cough - R05.1 (Primary) 2 . H ypothyroidism - E03.9 ?3. P eripheral edema - R60.0 4 . H yperkalemia - E87.5 5 . F atigue, unspecified type - R53.83 6 . H TN (hypertension) - I10 ? 7 . A nemia, unspecified type - D64.9 Plan: * Treatment: Value Reference Range w bc 9.7 3.5 - 10 * l ymph 13.4 15 - 50 * m id 4.3 2 - 15 * g ran 82.3 35 - 80 * r bc 3.66 3.5 - 5.5 * h gb 10.3 11.5 - 16.5 * h ct 33.0 35 - 55 * m cv 90.0 75 - 100 * m ch 28.2 25 - 35 * m chc 31.4 31 - 38 * p latlet 506 100 - 400 * Cris Rowell 09/29/2023 2:30:23 PM > , Provider reviewed results while patient in office. 2.?Hypothyroidism?LAB: P-T4 Free (thyroxine) (Collection Date & Time - 09/29/2023 01:10 PM)? Normal* Value Reference Range T hyroxine Free (free T4) 1.58 0.86-1.76 - ng/d L * Lin Smith 10/05/2023 9:37 :34 AM >See phone encounter ?LAB: P-TSH (Collection Date & Time - 09/29/2023 01:10 PM)?Normal* Value Reference Range T SH 1.73 0.43-5.25 - mU/L * Lin Smith 10/05/2023 9:37 :34 AM >See phone encounter 3.?Peripheral edema? Refill Furosemide Tablet, 20 MG, 1 tablet, Orally, Once a day, 30 day(s), 30, Refills 0.?LAB: P-Comprehensive Metabolic Panel (CMP) (Collection Date & Time - 09/29/2023 01:10 PM)?creat 1.81, Ca 8.5, gfr 39, alk phos 134* Value Reference Range A /G Ratio 1.9 1.1-2.5 - mg/dL * A lbumin 4.0 3.5-5.3 - g/dL * A lkaline Phosphatase 134 H 40-129 - IU/L * A LT (SGPT) 6 <5-55 - IU/L * A ST (SGOT) 15 <5-46 - IU/L * B ilirubin, Total 0.7 <0.2-1.2 - mg/dL * B UN 20 8-23 - mg/dL * C alcium 8.5 L 8.6-10.4 - mg/dL * C hloride 104 97-108 - mEq/L * C O2 23 22-32 - mEq/L * C reatinine 1.81 H 0.70-1.30 - mg/dL * G lucose 98 65-99 - mg/dL * P otassium 5.3 3.5-5.3 - mEq/L * S odium 138 135-145 - mEq/L * P rotein 6.1 6.0-8.3 - g/dL * e GFR by Creatinine 39 L >59 - mL/min/1.73m2 * LuisLin 10/05/2023 9:37 :34 AM >See phone encounter 4.?Hyperkalemia?LAB: P-Comprehensive Metabolic Panel (CMP) (Collection Date & Time - 09/29/2023 01:10 PM)?creat 1.81, Ca 8.5, gfr 39, alk phos 134* Value Reference Range A /G Ratio 1.9 1.1-2.5 - mg/dL * A lbumin 4.0 3.5-5.3 - g/dL * A lkaline Phosphatase 134 H 40-129 - IU/L * A LT (SGPT) 6 <5-55 - IU/L * A ST (SGOT) 15 <5-46 - IU/L * B ilirubin, Total 0.7 <0.2-1.2 - mg/dL * B UN 20 8-23 - mg/dL * C alcium 8.5 L 8.6-10.4 - mg/dL * C hloride 104 97-108 - mEq/L * C O2 23 22-32 - mEq/L * C reatinine 1.81 H 0.70-1.30 - mg/dL * G lucose 98 65-99 - mg/dL * P otassium 5.3 3.5-5.3 - mEq/L * S odium 138 135-145 - mEq/L * P rotein 6.1 6.0-8.3 - g/dL * e GFR by Creatinine 39 L >59 - mL/min/1.73m2 * LuisLin 10/05/2023 9:37 :34 AM >See phone encounter 5.?Fatigue, unspecified type?LAB: P-Vitamin B12 (Collection Date & Time - 09/29/2023 01:10 PM)?Normal* Value Reference Range V itamin B12 463 369-9485 - pg/mL * Luis,Lin 10/05/2023 9:37 :34 AM >See phone encounter ?LAB: P-Comprehensive Metabolic Panel (CMP) (Collection Date & Time - 09/29/2023 01:10 PM)?creat 1.81, Ca 8.5, gfr 39, alk phos 134* Value Reference Range A /G Ratio 1.9 1.1-2.5 - mg/dL * A lbumin 4.0 3.5-5.3 - g/dL * A lkaline Phosphatase 134 H 40-129 - IU/L * A LT (SGPT) 6 <5-55 - IU/L * A ST (SGOT) 15 <5-46 - IU/L * B ilirubin, Total 0.7 <0.2-1.2 - mg/dL * B UN 20 8-23 - mg/dL * C alcium 8.5 L 8.6-10.4 - mg/dL * C hloride 104 97-108 - mEq/L * C O2 23 22-32 - mEq/L * C reatinine 1.81 H 0.70-1.30 - mg/dL * G lucose 98 65-99 - mg/dL * P otassium 5.3 3.5-5.3 - mEq/L * S odium 138 135-145 - mEq/L * P rotein 6.1 6.0-8.3 - g/dL * e GFR by Creatinine 39 L >59 - mL/min/1.73m2 * LuisLin 10/05/2023 9:37 :34 AM >See phone encounter ?LAB: P-Vitamin B1 (Thiamine), Serum/Plasma, LC/MS/MS (Collection Date & Time - 09/29/2023 01:10PM)?3* Value Reference Range V itamin B1 (Thiamine), Serum/Plasma, LC/MS/MS 3 L 4-15 - nmol/L * Lin Smith 10/05/2023 9:37 :34 AM >See phone encounter 6.?HTN (hypertension)?LAB: P-Uric Acid (Collection Date & Time - 09/29/2023 01:10 PM)?11.1* Value Reference Range U martir Acid 11.1 H 3.4-8.0 - mg/dL * Lin Smith 10/05/2023 9:37 :34 AM >See phone encounter 7.?Anemia, unspecified type? Notes: Incidental finding today, plan to recheck CBC at follow up visit in 3 weeks?? * Procedure Codes: G 2211 Complex e/[place], [id number] [place], [id number] CBC WITH AUTO DIFF * Follow Up: a s scheduled,and prn * Images: Billing Information: * Visit Code: 34314 Office Visit, Est Pt., Level 4. * Procedure Codes: G2211 Complex e/[place]. [address] [place]. [id number] CBC WITH AUTO DIFF. * Electronic signature of Natalie Mirza MD on 03/27/2025 at 09:20 AM EST Sign off status: Pending * Provider: Josse Mirza M.D. Date: 0 09/29/2023 Generated for Antonio bland/Ronel/eTransmitting on: 1 05/27/2024 09:20 AM EST History and Physical Notes * HPI (History of Present Illness) Category Sub-Category Detail Notes Category Not es ENT/respiratory cough Pt complains of dry without any sputum production for about 4 days. Associated with shortness of breath. Pt states he feels like he needs to get stuff out of his chest but is unable to and he feels like he cannot catch his breath Endocrinology Fatigue Pt complains of fatigue and low energy. Pt states he has also lost a lot of weight and would like to have his thyroid checked today Cardiology Leg Edema Pt complains of bilateral leg and feet swelling for a while. States he did take medication but ran out a while ago and is not sure of the name, spoke with pt's pharmacy and pt was rx'd Furosemide 20mg daily in March 2023 Examination Category Sub-Category Detail Notes Category Not es ENT/Respiratory Oral cavity : erythema without exudate on pharynx Neck : no cervical lymphade nopathy Heart : RRR, normal S1 S2 Lungs: clear to auscultatio n bilaterally General Appearance: NAD
--- OUTSIDE RECORDS SUMMARY | 2023-10-19 05:15 | XMS_ITS ---
Author Organization [facility] Address [address] [facility] [address] [facility] [address] [place] [id number] Care Team Providers Care Cattle Dealer Name Role Phone Mario Alberto Marshall Primary Care Provider Allergies No Known Allergies Results Component Value Reference Range Notes P-Microalbumin/Creatinine, R andom Urine Sample Reviewed date:10/30/2023 10:09:42 PM Interpretation:a/c 37 Performing Lab: Notes/Report: Test performed by [facility] [address] [place] [address] , [address], [place] [address] Calin Brothers MD, Traffic Control Supervisor CLIA: [id number] Albumin/Creatinine Ratio, Urine 37 0-30 ug/m g Microalbumin, Urine, Random 5.9 Creatinine, Urine 157.5 REASON FOR VISIT 6 mo f/u, fasting labs, and [employer] Annual Wellness Visit Medications Medication SIG (Take, Route, Frequency, Duration) Notes Start Date End Date Status Loperamide HCl 2 MG 1 cap(s) Orally four times a day as needed 07/28/2023 Active Furosemide 20 MG 1 tablet Orally Once a day; Duration: 30 day(s) Active Allopurinol 100 MG 1 tab(s) orally 2 ti mes a day Active Flomax 0.4 MG 2 cap(s) orally once a day; Duration: 90 days Active Aspirin Adult Low Dose 81 MG 1 tab(s) orally once a day; Duration: 30 day(s) Active ARIPiprazole 5 MG 1 tab(s) orally once a day Active Venlafaxine HCl 150 MG 1 TAB DAILY Active Venlafaxine HCl 75 MG 1 tab orally daily Active Synthroid 75 MCG 1 tab(s) Orally once a day Active Bisoprolol Fumarate 10 MG 1 tab(s) orall y once a day Active Hydroxyurea 500 MG as directed orally o nce a day Active Vital Signs Weight 153.8 lbs 10/19/2023 Blood pressure systolic 114 mm Hg 10/19/19 Blood pressure diastolic 50 mm Hg 024 Heart Rate 61 /min 10/19/2023 Height 66.50 in 10/19/2023 BMI 24.45 kg/m2 10/19/2023 Encounters Encounter Location Date Provider Diagnosis [facility] [address] [facility] [address] [place], [place] [id number] 10/19/2023 Mario Alberto Marshall Adult general medica l examination Z00.00 ; Hyperuricemia E79.0 ; Cardiac dysrhythmia I49.9 ; Polycythemia vera D45 ; Hypothyroidism E03.9 ; Stage 3b chronic kidney disease N18.32 ; Benign prostatic hyperplasia with lower urinary tract symptoms N40.1 ; Depression with anxiety F41.8 ; HTN (hypertension) I10 ; Personal history of nicotine dependence Z87.891 and BMI 24.0-24.9, adult Z68.24 Assessments Encounter Date Diagnosis (ICD Code) Assessment Notes Treatment Notes Treatment Clinical Notes Section Notes 10/19/2023 Adult general medical examination (ICD-10 - Z00.00) Patient instructed to return to office Annually for Annual Wellness Visits to include annual screenings of Pain assessment, Functional Ability assessment, Cognitive Ability assessment, Fall Risk assessment, Depression screening and Bladder control screening. 10/19/2023 Hyperuricemia (ICD-10 - E79.0) 10/19/2023 Cardiac dysrhythmia (ICD-10 - I49.9) 10/19/2023 Polycythemia vera (ICD-10 - D45) 10/19/2023 Hypothyroidism (ICD-10 - E03.9) 10/19/2023 Stage 3b chronic kidney disease (ICD-10 - N18.32) 10/19/2023 Benign prostatic hyperplasia with lower urinary tract symptoms (ICD-10 - N40.1) 10/19/2023 Depression with anxiety (ICD-10 - F41.8) 10/19/2023 HTN (hypertension) (ICD-10 - I10) 10/19/2023 Personal history of nicotine dependence (ICD-10 - Z87.891) 10/19/2023 BMI 24.0-24.9, adult (ICD-10 - Z68.24) Plan Of Treatment Medication Medication Name Sig Start Date Stop Date Notes Allopurinol 100 MG 1 tab(s) orally 2 times a day Flomax 0.4 MG 2 cap(s) orally once a day; Duration: 90 days Bisoprolol Fumarate 10 MG 1 tab(s) orally once a day Treatment Notes Assessment Notes Adult general medical examination Patien t instructed to return to office Annually for Annual Wellness Visits to include annual screenings of Pain assessment, Functional Ability assessment, Cognitive Ability assessment, Fall Risk assessment, Depression screening and Bladder control screening. Next Appt Details Follow Up: 3 Months, Reason: Provider Name:Mario Alberto Romero et, 07/31/2025 10:15:00 AM, [address] [facility] [address], [place], [place], [id number], Progress Notes * Jonny CODY LDOB: 0 (74 yo M)Acc No.[id number]:10/19/2023 Annual Wellness Visit Patient: Jonny SCHWARZ Provider: Mario Alberto Marshall M.D. :1950 A ge:73 Y S ex:Male Date:10/19/2023 Address:[address] [place] [address], [address], [place] [id number] Subjective: * Chief Complaints: * 1 . 6 mo f/u, fasting labs, and [facility]ness [facility]. * HPI: H PI: Patient is here today for a 6 month check up and a [employer] Annual Wellness Visit with PAF form completion. See PAF form scanned to chart. . C ardiology: He somatrem over about 2 weeks ago with complaints of leg swelling. He was started back on Lasix 20 mg daily. Blood work at that time showed stable renal function but markedly elevated uric acid. He has not been taking his allopurinol. He has not been following with nephrology. H ematology: He continues to follow with Dr. Holder for his polycythemia. No change in his regimen. G astroenterology: He underwent EGD with esophageal dilatation recently with Dr. Turcios. His dysphagia has completely resolved and he is eating well states that he is still not gaining weight. * ROS: D ERMATOLOGY: no R kimmie. n o H matilde. G ASTROENTEROLOGY: no N ausea. n o V omiting. U ROLOGY: no D ifficulty urinating. n o B lood in urine. * Medical History: A nxiety disorder, Large inguinal hernia, Benign Prostatic Hyperplasia, Hypertension, Declines Immunizations 10/2016. 04/2019, COLOGUARD - negative 10/2016, Polycythemia vera - Dr Watson, Hyperuricemia, CKD - stage 3, Esophageal stricture. * Surgical History: R T Arm- foreign body removed , LT Inguinal Hernia Repair - Dr. Cochran 05/2023, EGD with esophageal dilatation 10/13/2023. * Family History: F ather: , alzheimer. [...] cap(s) orally once a day , Taking Loperamide HCl 2 MG Capsule 1 cap(s) Orally four times a day as needed , Taking Furosemide 20 MG Tablet 1 tablet Orally Once a day , Not-Taking Allopurinol 100 MG Tablet 1 tab(s) orally 2 times a day , Medication List reviewed and reconciled with the patient * Allergies: N .K.D.A. Objective: * Vitals: W t:153.8, Temp:97.9, BP:114/50, HR:61, O2 Sat:98% on RA, Nurse:MARIA DE JESUS, Ht: 66.50, BMI:24.45. * Examination: C ardiology: General Appearance: N AD. Weight noted. Color good.?HEENT: Pat alvarez is slightly hoarse, otherwise unremarkable. C arotid upstroke: n ormal, no bruits. H eart sounds: R RR, normal S1, S2. M urmur, click , gallop: n one. Lungs: c lear, no rales or wheezes. A bdomen: s oft, nontender, positive BS. E xtremities: 1 -2+ PTE. * Physical Examination: G ENERAL: Pain Assessment: P ain level: 4, on a scale of 0-10 (with 10 being extreme pain). F unctional Status Assessment: P atient response to question of how often physical health interferes with daily activities: . Occasionally Able to perform ADLs-including meal preparation, grocery shopping, housework, laundry, taking medications or handling finances. Cognitive Status: alert and oriented. Ambulation Status: Fully ambulatory . F all Risk Assessment: I ndependant in ambulation, adequate lighting in home. Patient has NOT fallen or had trouble walking within the past 12 months. D epression Screening: D enies depressed mood or anxiety. Describes emotional health as: calm. B ladder Control Screening: D enies problems. Assessment: * Assessment: 1. A dult general medical examination - Z00.00 (Primary) 2 . H yperuricemia - E79.0 3 . C ardiac dysrhythmia - I49.9 4 . P olycythemia vera - D45 5 . H ypothyroidism - E03.9 6 . S tage 3b chronic kidney disease - N18.32 7 . B enign prostatic hyperplasia with lower urinary tract symptoms - N40.1 8 . D epression with anxiety - F41.8 9 .?HTN (hypertension) - I10 1 0. P ersonal history of nicotine dependence - Z87.891 1 1. B WV 24.0-24.9, adult - Z68.24 Plan: * Treatment: 2. C ardiac dysrhythmia Refill Bisoprolol Fumarate Tablet, 10 MG, 1 tab(s), orally, once a day, 90, Refills 1. 3. H TN (hypertension) L AB: P-Microalbumin/Creatinine, Random Urine Sample (Collection Date & Time - 10/19/2023 10:02 AM) a /c 37 Value Reference Range A lbumin/Creatinine Ratio, Urine 37 H 0-30 - ug /mg * C reatinine, Urine 157.5 - mg/dL * M icroalbumin, Urine, Random 5.9 - mg/dL * Rolando,R Juanjo 10/30/2023 1 0:09:41 PM > reviewed 4.?Others? Refill Allopurinol Tablet, 100 MG, 1 tab(s), orally, 2 times a day, 180, Refills 1;?Refill Flomax Capsule, 0.4 MG, 2 cap(s), orally, once a day, 90 days, 180 Capsule, Refills 1.?? * Procedure Codes: G 0439 ANNUAL WELLNESS VST; PPS SUBSQT VST, 67873 PT-FOCUSED HLTH RISK ASSMT, 27047 PULSE OX, G0444 ANNUAL DEPRESSION SCREENING 15 MIN, 1090F PRES/ABSN URINE INCON ASSESS, 3288F FALL RISK ASSESSMENT DOCD, 1170F FXNL STATUS ASSESSED, 1159F MED LIST DOCD IN RCRD, 1003F LEVEL OF ACTIVITY ASSESS, 1036F TOBACCO NON-USER, 3017F COLORECTAL CA SCREEN DOC REV, G8482 FLU IMMUNIZE ORDER/ADMIN, 4040F PNEUMOC IMM ORDER/ADMIN, 1125F AMNT PAIN NOTED PAIN PRSNT, 3074F SYST BP LT 130 MM HG, 3078F DIAST BP < 80 MM HG * Preventive Medicine: Counseling: E motional health: D iscussed ways to improve socialization. B ladder control: M ethods of controlling or managing leakage of urine discussed. E xercise: Patient advised to start, increase or maintain level of exercise/physical activity. I njury prevention: F all prevention discussed. Discussed need for cane/walker. Potential trip hazards discussed. Immunizations: P neumococcal u p to date. I nfluenza u p to date. Screening / Special Tests: C olonoscopy - Case: ortega-colitis. P SA 1 06/28/2022, normal. L karen cancer screening -negative, recommended due to smoking history. * Follow Up: 3 Months * Images: Billing Information: * Visit Code: 36622 Office Visit, Est Pt., Level 3. Modifiers: 25 * Procedure Codes: G0439 ANNUAL WELLNESS VST; PPS SUBSQT VST. 37660 PT-FOCUSED HLTH RISK ASSMT. 54774 PULSE OX. G0444 ANNUAL DEPRESSION SCREENING 15 MIN. 1090F PRES/ABSN URINE INCON ASSESS. 3288F FALL RISK ASSESSMENT DOCD. 1170F FXNL STATUS ASSESSED. 1159F MED LIST DOCD IN RCRD. 1003F LEVEL OF ACTIVITY ASSESS. 1036F TOBACCO NON-USER. 3017F COLORECTAL CA SCREEN DOC REV. G8482 FLU IMMUNIZE ORDER/ADMIN. 4040F PNEUMOC IMM ORDER/ADMIN. 1125F AMNT PAIN NOTED PAIN PRSNT. 3074F SYST BP LT 130 MM HG. 3078F DIAST BP < 80 MM HG. * Electronic signature of Mario Alberto Marshall MD on 03/27/2025 at 09:19 AM EST Sign off status: Pending * Provider: Mario Alberto Marshall M.D. Date: 0 10/19/2023 Generated for Antonio bland/Ronel/Dulceitting on: 1 05/27/2024 09:19 AM EST History and Physical Notes * HPI (History of Present Illness) Category Sub-Category Detail Notes Category Not es Cardiology He has not been following with nephrology. HPI Patient is here toda y for a 6 month check up and a [employer] Annual Wellness Visit with PAF form completion. See PAF form scanned to chart. Physical Examination Category Sub-Category Detail Notes Section Note s GENERAL Pain Assessment: Pain level: 4, on a scale of 0-10 (with 10 being extreme pain) Functional Status Assessment: Patient response to question of how often physical health interferes with daily activities: . Occasionally Able to perform ADLs-including meal preparation, grocery shopping, housework, laundry, taking medications or handling finances. Cognitive Status: alert and oriented. Ambulation Status: Fully ambulatory Fall Risk Assessment: Independant in amb ulation, adequate lighting in home. Patient has NOT fallen or had trouble walking within the past 12 months Depression Screening: Denies depressed m ood or anxiety. Describes emotional health as: calm Bladder Control Screening: Denies proble ms Examination Category Sub-Category Detail Notes Category Not es Cardiology Lungs: clear, no rales or wheezes HEENT: Voice is slightly ho arse, otherwise unremarkable Heart sounds: RRR, normal S1, S2 Abdomen: soft, nontender, pos itive BS Carotid upstroke: normal, no bruits Extremities: 1-2+ PTE Murmur, click , gallop: none General Appearance: NAD. Weight noted. C olor good
--- OUTSIDE RECORDS SUMMARY | 2024-01-25 05:15 | XMS_ITS ---
Author Organization [facility] Address [address] [facility] [address] [facility] [address] [place] [id number] Care Team Providers Care Spinning Machine Operator Name Role Phone Mario Alberto Marshall Primary Care Provider Allergies No Known Allergies Results Component Value Reference Range Notes P-Basic Metabolic Panel (BMP ) Reviewed date:01/28/2024 06:51:01 PM Interpretation:K 6.0, BUN 25, CO2 21, Creat 1.72, eGFR 41 Performing Lab: Notes/Report: Test performed by [facility] [address] [place] [address] , [address], [place] [address] Calin Brothers MD, Customer Resource Specialist CLIA: [id number] Sodium 139 135-145 mmol/L Potassium 6.0 3.5-5.3 mmol/L Chloride 105 97-108 mmol/L CO2 21 22-32 mmol/L Glucose 83 65-99 mg/dL BUN 25 8-23 mg/dL Creatinine 1.72 0.70-1.30 mg/dL Calcium 8.6 8.6-10.4 mg/dL eGFR by Creatinine 41 >59 mL/min/1.73m2 P-TSH Reviewed date:01/28/2024 06:51:01 PM Interpretation:4.28 Performing Lab: Notes/Report: Test performed by [facility] [address] [place] [address] Prabhjot Hu, [address], [place] [address] Calin Brothers MD, Customer Resource Specialist CLIA: [id number] TSH 4.28 0.43-5.25 mU/L P-Uric Acid Reviewed date:01/28/2024 06:51:01 PM Interpretation:6.6 Performing Lab: Notes/Report: Test performed by [facility] [address] [place] [address] , [address], [place] [address] Calin Brothers MD, Customer Resource Specialist CLIA: [id number] Uric Acid 6.6 3.4-8.0 mg/dL REASON FOR [...] Duration: 30 day(s) Active Vital Signs Weight 165.8 lbs 01/25/2024 Blood pressure systolic 126 mm Hg 01/25/20 24 Blood pressure diastolic 70 mm Hg 024 Heart Rate 64 /min 01/25/2024 Height 66.50 in 01/25/2024 BMI 26.36 kg/m2 01/25/2024 Encounters Encounter Location Date Provider Diagnosis [facility] [address] [facility] [address] [id number] 01/25/2024 Mario Alberto Marshall Peripheral edema R60 [...] [address], [place], [place], [id number], Progress Notes * Jonny CODY LDOB: 0 (74 yo M)Acc No.[id number]:01/25/2024 Progress Notes Patient: Mario Alberto ANGIETY Jonny Hanley Provider: Mario Alberto Marshall M.D. :1950 A ge:73 Y S ex:Male Date:01/25/2024 Address:[facility] Kiarra Callejas, Mary pt B, [facility] Subjective: * Chief Complaints: * 1 . [...] * Images: Billing Information: * Visit Code: 82692 Office Visit, Est Pt., Level 4. * Procedure Codes: * Electronic signature of Mario Alberto Marshall MD on 03/27/2025 at 09:20 AM EST Sign off status: Pending * Provider: Mario Alberto Marshall M.D. Date: 0 01/25/2024 Generated for Antonio bland/Ronel/eTvanesaitting on: 1 05/27/2024 09:20 AM EST History [...]
--- OUTSIDE RECORDS SUMMARY | 2024-02-05 05:30 | XMS_ITS ---
Author Organization [facility] Address [address] [facility] 36 [facility] [address] [place] [id number] Care Team Providers Care Wallpaper Inspector And Shipper Name Role Phone Mario Alberto Marshall Primary Care Provider Results Component Value Reference Range Notes P-Basic Metabolic Panel (BMP ) Reviewed date:02/08/2024 08:39:05 AM Interpretation:gluc 122, bun 31, Cr 2.01, Ca 8.5, gfr 34 Performing Lab: Notes/Report: Test performed by [facility], [address] , [address], [place] [address] Calin Brothers MD, Line Assembler Aircraft CLIA: [id number] Sodium 140 135-145 mmol/L Potassium 5.3 3.5-5.3 [...] Encounter Location Date Provider Diagnosis Unique [address] [place], [place] [id number] 02/05/2024 Mario Alberto Marshall HTN (hypertension) I [...] Name:Mario Alberto Rodriguez, 07/31/2025 10:15:00 AM, [address], [address], [place], [place], [id number], Progress Notes * Jonny CODY LDOB: 0 (74 yo M)Acc No.[id number]:02/05/2024 Patient: Jonny SCHWARZ Provider: Mario Alberto Marshall M.D. :1950 A ge:73 Y S ex:Male Date:02/05/2024 Address:[facility] [address], [facility] Subjective: * Chief Complaints: * 1 . [...] 0 02/05/2024 Generated for Antonio bland/Ronel/Payam on: 05/27/2024 09:20 AM EST
--- OUTSIDE RECORDS SUMMARY | 2024-04-25 05:00 | XMS_ITS ---
Author Organization [facility] Address 12[address] [facility] 36 [facility] [address] [place] [id number] Care Team Providers Care Conference Reservationist Name Role Phone Mario Alberto Marshall Primary Care Provider Allergies No Known Allergies Results Component Value Reference Range Notes P-Comprehensive Metabolic Pa kelton (CMP) Reviewed date:04/26/2024 12:10:09 PM Interpretation: Performing Lab: Notes/Report: Test performed by [facility] [address] [place] [address] , [address], [place] [address] Calin Brothers MD, Special Ed Assistant CLIA: [id number] Sodium 137 135-145 mmol/L Potassium 6.8 3.5-5.3 mmol/L ALERT VALUE Results were repeated and confirmed. Chloride 107 97-108 mmol/L CO2 20 22-32 mmol/L Glucose 104 65-99 mg/dL BUN 42 8-23 mg/dL Creatinine 2.07 0.70-1.30 mg/dL Calcium 8.4 8.6-10.4 mg/dL eGFR by Creatinine 33 >59 mL/min/1.73m2 Protein 6.3 6.0-8.3 g/dL Albumin 3.9 3.5-5.3 g/dL Alkaline Phosphatase 143 40-129 IU/L ALT (SGPT) 11 <5-55 IU/L AST (SGOT) 12 <5-46 IU/L Bilirubin, Total 0.6 <0.2-1.2 mg/dL A/G Ratio 1.6 1.1-2.5 P-PSA Reviewed date:04/26/2024 12:10:09 PM Interpretation: Performing Lab: Notes/Report: Test performed by [facility] [address] [place], [place] [address] [place] , [address], [place] [address] Calin Brothers MD, Special Ed Assistant CLIA: [id number] PSA 1.78 <4.00 ng/mL Please note this is an ultrasensitive PSA assay with a lower limit of detection of 0.014 ng/mL. This test is performed by the Rox[employer] ECLIA methodology. Values obtained with different assay methods or kits cannot be directly compared. P-TSH Reviewed date:04/26/2024 12:10:09 PM Interpretation: Performing Lab: Notes/Report: Test performed by [facility] [address] [place] [address] , [address], [place] [address] Calin Brothers MD, Special Ed Assistant CLIA: [id number] TSH 4.10 0.43-5.25 mU/L P-Uric Acid Reviewed date:04/26/2024 12:10:09 PM Interpretation: Performing Lab: Notes/Report: Test performed by [facility] [address] [place] [address] , [address], [place] [address] Calin Brothers MD, Special Ed Assistant CLIA: [id number] Uric Acid 7.7 3.4-8.0 mg/dL Reason For Referral Reason lesion in nose suspi cious for basal cell cancer. 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 Referred Provider Specialty ENT General Notes Marquita Ahuja 024 11:08:21 AM > faxed to Leigha PARRA Brynn 04/29/2024 4:25:29 PM > 05/02/2024 at 04:00pm Referral Priority Routine REASON FOR VISIT 3 months, Needs labs with PSA, colon cancer screening, low dose chest CT, & flu vaccine Medications Medication SIG (Take, Route, Frequency, Duration) Notes Start Date End Date Status Synthroid 75 MCG 1 tab(s) Orally once a day Active Loperamide HCl 2 MG 1 cap(s) Orally four times a day as needed 07/28/2023 Active Venlafaxine HCl 75 MG 1 tab orally daily Active Bisoprolol Fumarate 10 MG 1 tab(s) orall y once a day Active Furosemide 20 MG 1 tablet Orally Once a day Active Hydroxyurea 500 MG as directed orally o nce a day Active Aspirin Adult Low Dose 81 MG 1 tab(s) orally once a day; Duration: 30 day(s) Active Venlafaxine HCl 150 MG 1 TAB DAILY Active ARIPiprazole 5 MG 1 tab(s) orally once a day Active Flomax 0.4 MG 2 cap(s) orally once a day; Duration: 90 days Active Allopurinol 100 MG 1 tab(s) orally 2 ti mes a day Active Immunizations Vaccine Route Administration Date Status Comme nts Fluzone High Dose (65yr and older) IM Intramuscular 04/25/2024 Administered Vital Signs Weight 171.4 lbs 04/25/2024 Blood pressure systolic 116 mm Hg 04/25/20 24 Blood pressure diastolic 58 mm Hg 024 Heart Rate 67 /min 04/25/2024 Height 66.50 in 04/25/2024 BMI 27.25 kg/m2 04/25/2024 Encounters Encounter Location Date Provider [facility] [address] [id number] 04/25/2024 Mario Alberto Marshall Hypothyroidism E03.9 ; Stage 3b chronic kidney disease N18.32 ; Polycythemia vera D45 ; Benign prostatic hyperplasia with lower urinary tract symptoms N40.1 ; Personal history of nicotine dependence Z87.891 ; HTN (hypertension) I10 ; Neoplasm of uncertain behavior of skin D48.5 ; Hyperuricemia E79.0 and Encounter for immunization Z23 Assessments Encounter Date Diagnosis (ICD Code) Assessment Notes Treatment Notes Treatment Clinical Notes Section Notes 04/25/2024 Hypothyroidism (ICD-10 - E03.9) 04/25/2024 Stage 3b chronic kidney disease (ICD-10 - N18.32) 04/25/2024 Polycythemia vera (ICD-10 - D45) 04/25/2024 Benign prostatic hyperplasia with lower urinary tract symptoms (ICD-10 - N40.1) 04/25/2024 Personal history of nicotine dependence (ICD-10 - Z87.891) 04/25/2024 HTN (hypertension) (ICD-10 - I10) 04/25/2024 Neoplasm of uncertain behavior of skin (ICD-10 - D48.5) 04/25/2024 Hyperuricemia (ICD-10 - E79.0) 04/25/2024 Encounter for immunization (ICD-10 - Z23) Plan Of Treatment Medication Medication Name Sig Start Date Stop Date Notes Synthroid 75 MCG 1 tab(s) Orally once a day Bisoprolol Fumarate 10 MG 1 tab(s) orally once a day Furosemide 20 MG 1 tablet Orally Once a day Flomax 0.4 MG 2 cap(s) orally once a day; Duration: 90 days Allopurinol 100 MG 1 tab(s) orally 2 times a day Pending Test Test Name Order Date CT SCAN : CHEST, LUNG CANCER SCREENING L OW DOSE 04/25/2024 Referrals Referral Date Details 04/25/2024 04/25/2024, lesion i n nose suspicious for basal cell cancer. Prefers appt in [place], . ENT Next Appt Details Follow Up: 3 Months, Reason: Provider Name:Mario Alberto Rodriguez, 07/31/2025 10:15:00 AM, [address], [address] , [place], [place], [id number], Progress Notes * Jonny CODY LDOB: 0 (74 yo M)Acc No.[id number]:04/25/2024 Progress Notes Patient: Jonny SCHWARZ Provider: Mario Alberto Marshall M.D. :1950 A ge:73 Y S ex:Male Date:04/25/2024 Address:[address] [place] [address], [address] pt , [place] [id number] Subjective: * Chief Complaints: * 1 . 3 months. 2. Needs labs with PSA, colon cancer screening, low dose chest CT, & flu vaccine. * HPI: C ardiology: Pt presents today for a 3 month check up. Pt is fasting today. Denies : Chest Pain. D enies : Short of Breath. D enies : Palpitations. D ermatology: Pt sts that he has a sore on the inside of the left nostril that has been present for about a year. He states he goes through repeated cycles of bleeding, scabbing, peeling off, then rebleeding. It never heals. H PI: Pt would like his flu shot today. H ematology: He continues to follow with Dr. Holder for his polycythemia. * ROS: D ERMATOLOGY: no R kimmie. [...] Allergies: N .K.D.A. Objective: * Vitals: W t:171.4, Temp:97.8, BP:116/58, HR:67, Nurse:MARIA DE JESUS, Ht: 66.50, BMI:27.25. * Examination: C ardiology: General Appearance: N AD. He continues to gain weight since his esophageal dilatation. H EENT: Pat alvarez is c hronically hoarse. Just inside his left nares, there is a 5 mm lesion with raised borders and central ulceration suspicious for basal cell carcinoma. C arotid upstroke: n ormal, no bruits. H eart sounds: R RR, normal S1, S2. M urmur, click , gallop: n one. L ungs: c lear, no rales or wheezes.?Abdomen: s oft, nontender, positive BS. E xtremities: 1 -2+ PTE. ? Assessment: * Assessment: 1. H ypothyroidism - E03.9 (Primary) 2 . S tage 3b chronic kidney disease - N18.32 3 . P olycythemia vera - D45 4 . B enign prostatic hyperplasia with lower urinary tract symptoms - N40.1 5 . P ersonal history of nicotine dependence - Z87.891 6 . 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 H yperuricemia - E79.0? 9. E ncounter for immunization - Z23 Plan: * Treatment: Value Reference Range T SH 4.10 0.43-5.25 - mU/L * Mario Alberto Marshall 04/26/2024 12:09:53 PM >See phone encounter 2.?Polycythemia vera?LAB: P-Uric Acid (Collection Date & Time - 04/25/2024 11:01 AM)* Value Reference Range U martir Acid 7.7 3.4-8.0 - mg/dL * Mario Alberto Marshall 04/26/2024 12:09:53 PM >See phone encounter 3.?Benign prostatic hyperplasia with lower urinary tract symptoms? Refill Flomax Capsule, 0.4 MG, 2 cap(s), orally, once a day, 90 days, 180 Capsule, Refills 1.?LAB: P-PSA (Collection Date & Time - 04/25/2024 11:01 AM)* Value Reference Range P SA 1.78 <4.00 - ng/mL * Mario Alberto Marshall Juanjo 04/26/2024 12:09:53 PM >See phone encounter 4.?Personal history of nicotine dependence?Imaging: CT SCAN : CHEST, LUNG CANCER SCREENING LOW DOSE* Marquita Ahuja 04/25/2024 10:4 7:22 AM > no auth required; CPT code [id number],Marquita 04/25/2024 10:51:22 AM > faxed to [facility] in [place] 5.?HTN (hypertension)? Refill Bisoprolol Fumarate Tablet, 10 MG, 1 tab(s), orally, once a day, 90, Refills 1;?Refill Furosemide Tablet, 20 MG, 1 tablet, Orally, Once a day, 90, Refills 1.?LAB: P-Comprehensive Metabolic Panel (CMP) (Collection Date & Time - 04/25/2024 11:01 AM)* Value Reference Range A /G Ratio 1.6 1.1-2.5 - * A lbumin 3.9 3.5-5.3 - g/dL * A lkaline Phosphatase 143 H 40-129 - IU/L * A LT (SGPT) 11 <5-55 - IU/L * A ST (SGOT) 12 <5-46 - IU/L * B ilirubin, Total 0.6 <0.2-1.2 - mg/dL * B UN 42 H 8-23 - mg/dL * C alcium 8.4 L 8.6-10.4 - mg/dL * C hloride 107 97-108 - mmol/L * C O2 20 L 22-32 - mmol/L * C reatinine 2.07 H 0.70-1.30 - mg/dL * G lucose 104 H 65-99 - mg/dL * P otassium 6.8 HH 3.5-5.3 - mmol/L * S odium 137 135-145 - mmol/L * P rotein 6.3 6.0-8.3 - g/dL * e GFR by Creatinine 33 L >59 - mL/min/1.73m2 * Mario Alberto Marshall 04/26/2024 12:09:53 PM >See phone encounter 6.?Neoplasm of uncertain behavior of skin? Referral To:. ENT??ENT ?Reason:lesion in nose suspicious for basal cell cancer. Prefers appt in [place] 7.?Hyperuricemia? Refill Allopurinol Tablet, 100 MG, 1 tab(s), orally, 2 times a day, 180, Refills 1.?? * Immunizations: Fluzone High Dose (65yr and older) : 0.5 mL (Route: Intramuscular) given by Lis White on Right Deltoid (Encounter for immunization) * Procedure Codes: G 2211 Complex e/m visit add on * Follow Up: 3 Months * Images: Billing Information: * Visit Code: 84657 Office Visit, Est Pt., Level 4. * Procedure Codes: G2211 Complex e/m visit add on. * Electronic signature of Mario Alberto Marshall MD on 03/27/2025 at 09:20 AM EST Sign off status: Pending * Provider: Mario Alberto Marshall M.D. Date: 06/26/2023 Generated for Antonio bland/Ronel/Dulceitting on: 05/27/2024 09:20 AM EST History and Physical Notes * HPI (History of Present Illness) Category Sub-Category Detail Notes Category Not es Dermatology Pt sts that he has a sore on the inside of the left nostril that has been present for about a year. He states he goes through repeated cycles of bleeding, scabbing, peeling off, then rebleeding. It never heals. Cardiology Short of Breath Chest Pain Palpitations HPI Pt would like h is flu shot today Examination Category Sub-Category Detail Notes Category Not es Cardiology Lungs: clear, no rales or wheezes HEENT: Voice is chronically hoarse. Just inside his left nares, there is a 5 mm lesion with raised borders and central ulceration suspicious for basal cell carcinoma Heart sounds: RRR, normal S1, S2 Abdomen: soft, nontender, pos itive BS Carotid upstroke: normal, no bruits Extremities: 1-2+ PTE Murmur, click , gallop: none General Appearance: NAD. He continues to gain weight since his esophageal dilatation Consultation Request Notes Referral Date Referring Provider Referred Provider Not gerardo 04/25/2024 Mario Alberto Marshall ENT, . lesion in nose suspicious for basal cell cancer. Prefers appt in [place]
--- OUTSIDE RECORDS SUMMARY | 2024-05-13 07:30 | XMS_ITS ---
Author Organization [facility] Address 1210 [facility] 36 [facility] [address] [place] [id number] Care Team Providers Care Location Director Name Role Phone Mario Alberto Marshall Primary Care Provider Results Component Value Reference Range Notes P-Potassium Reviewed date:05/14/2024 09:34:43 AM Interpretation:5.7 Performing Lab: Notes/Report: Test performed by [facility], [employer] [address] [place] [address] , [address], [place] [address] Calin Brothers MD, Palm And Back Forger CLIA: [id number] Potassium 5.7 3.5-5.3 mmol/L REASON FOR VISIT lab draw Encounters Encounter Location Date Provider Diagnosis [facility] [address] [facility] [address] [place] [id number] 05/13/2024 Mario Alberto Marshall Hyperkalemia E87.5 Assessments Encounter Date Diagnosis (ICD Code) Assessment Notes Treatment Notes Treatment Clinical Notes Section Notes 05/13/2024 Hyperkalemia (ICD-10 - E87.5) Plan Of Treatment Next Appt Details Provider Name:Mario Alberto Rodriguez, 07/31/2025 10:15:00 AM, [address] [facility], [address], [place], [id number], Progress Notes * Jonny CODY LDOB: 0 (74 yo M)Acc No.[id number]:05/13/2024 Patient: Jonny SCHWARZ Provider: Mario Alberto Marshall M.D. :1950 A ge:73 Y S ex:Male Date:05/13/2024 Address:[address], [facility], [id number] Subjective: * Chief Complaints: * 1 . Lab draw. * Medical History: Objective: * Vitals: Assessment: * Assessment: 1. H yperkalemia - E87.5 Plan: * Treatment: Value Reference Range P otassium 5.7 H 3.5-5.3 - mmol/L * RameshRamila 05/14/2024 9:34 :39 AM >See phone encounter * Images: Billing Information: * Visit Code: * Procedure Codes: * Electronic signature of Mario Alberto Marshall MD on 03/27/2025 at 09:20 AM EST Sign off status: Pending * Provider: Mario Alberto Marshall M.D. Date: Generated for Antonio bland/Ronel/Payam on: 05/27/2024 09:20 AM EST
--- OUTSIDE RECORDS SUMMARY | 2024-07-25 05:00 | XMS_ITS ---
Author Organization [facility] Address [address] [facility] [address] [place] [id number] Care Team Providers Care Forging Press Lever Tender Name Role Phone Mario Alberto Marshall Primary Care Provider Allergies No Known Allergies Results Component Value Reference Range Notes Ultrasound : Aorta Reviewed date:09/18/2024 12:02:27 AM Interpretation:negative, incidental splenomegaly Performing Lab: Notes/Report: negative, incidental splenomegaly CT Scan : Chest, low dose Reviewed date:10/29/2024 08:47:06 AM Interpretation:no suspicious lesions; known splenomegaly Performing Lab: Notes/Report: no suspicious lesions; known splenomegaly REASON FOR VISIT 3 month check and AWV Medications Medication SIG (Take, Route, Frequency, Duration) Notes Start Date End Date Status Loperamide HCl 2 MG 1 cap(s) Orally four times a day as needed 07/28/2023 Active Venlafaxine HCl 150 MG 1 TAB DAILY Active Venlafaxine HCl 75 MG 1 tab orally daily Active ARIPiprazole 5 MG 1 tab(s) orally once a day Active Kionex 15 GM/60ML 60 mL orally 3 times a week (M,W,F) 04/26/2024 Active Furosemide 20 MG 1 tablet Orally Once a day Active Bisoprolol Fumarate 10 MG 1 tab(s) orall y once a day Active Flomax 0.4 MG 2 cap(s) orally once a day; Duration: 90 days Active Hydroxyurea 500 MG as directed orally o nce a day Active Aspirin Adult Low Dose 81 MG 1 tab(s) orally once a day; Duration: 30 day(s) Active Allopurinol 100 MG 1 tab(s) orally 2 ti mes a day Active Synthroid 75 MCG 1 tab(s) Orally once a day Active Vital Signs Weight 168.4 lbs 07/25/2024 Blood pressure systolic 124 mm Hg 07/26/19 25 Blood pressure diastolic 60 mm Hg 025 Heart Rate 48 /min 07/25/2024 Height 66.50 in 07/25/2024 BMI 26.77 kg/m2 07/25/2024 Encounters Encounter Location Date Provider Diagnosis Unique [address] [facility] [address] [place] [id number] 07/25/2024 Mario Alberto Marshall Adult general medica l examination Z00.00 ; Hypothyroidism E03.9 ; Stage 3b chronic kidney disease N18.32 ; Polycythemia vera D45 ; Benign prostatic hyperplasia with lower urinary tract symptoms N40.1 ; Personal history of nicotine dependence Z87.891 ; HTN (hypertension) I10 ; Hyperuricemia E79.0 and BMI 26.0-26.9,adult Z68.26 Assessments Encounter Date Diagnosis (ICD Code) Assessment Notes Treatment Notes Treatment Clinical Notes Section Notes 07/25/2024 Adult general medical examination (ICD-10 - Z00.00) Patient instructed to return to office Annually for Annual Wellness Visits to include annual screenings of Pain assessment, Functional Ability assessment, Cognitive Ability assessment, Fall Risk assessment, Depression screening and Bladder control screening. 07/25/2024 Hypothyroidism (ICD-10 - E03.9) 07/25/2024 Stage 3b chronic kidney disease (ICD-10 - N18.32) Continue follow-up with nephrology 07/25/2024 Polycythemia vera (ICD-10 - D45) Continue follow-up with Dr. Holder 07/25/2024 Benign prostatic hyperplasia with lower urinary tract symptoms (ICD-10 - N40.1) 07/25/2024 Personal history of nicotine dependence (ICD-10 - Z87.891) 07/25/2024 HTN (hypertension) (ICD-10 - I10) 07/25/2024 Hyperuricemia (ICD-10 - E79.0) 07/25/2024 BMI 26.0-26.9,adult (ICD-10 - Z68.26) Plan Of Treatment Medication Medication Name Sig Start Date Stop Date Notes Furosemide 20 MG 1 tablet Orally Once a day Bisoprolol Fumarate 10 MG 1 tab(s) orally once a day Flomax 0.4 MG 2 cap(s) orally once a day; Duration: 90 days Allopurinol 100 MG 1 tab(s) orally 2 times a day Synthroid 75 MCG 1 tab(s) Orally once a day Treatment Notes Assessment Notes Adult general medical examination Patien t instructed to return to office Annually for Annual Wellness Visits to include annual screenings of Pain assessment, Functional Ability assessment, Cognitive Ability assessment, Fall Risk assessment, Depression screening and Bladder control screening. Stage 3b chronic kidney disease Continue follow-up with nephrology Polycythemia vera Continue follow-up w isacc Holder Next Appt Details Follow Up: 6 Months, Reason: Provider Name:Mario Alberto Rodriguez, 07/31/2025 10:15:00 AM, [address], [address], [place], [place], [id number], Progress Notes * Jonny CODY LDOB: 0 (74 yo M)Acc No.[id number]:07/25/2024 Annual Wellness Visit Patient: Jonny SCHWARZ Dayan Provider: Mario Alberto Marshall M.D. :1950 A ge:73 Y S ex:Male Date:07/25/2024 Address:[address] [place] [address], A pt B, [facility] Subjective: * Chief Complaints: * 1 . 3 month check and AWV. * HPI: H PI: 73 year old male presents with c/o Patient is here today for?Pt is here today for a 3 m [facility] check up and Medicare Annual Wellness Visit. P t is fasting. C ardiology: Since his last visit, he has been seen by nephrology and was started on Lasix. He notes his swelling has been much improved since then. He does describe occasional sensation of lightheadedness if he stands up quickly. Denies : Chest Pain. D enies : Short of Breath. D enies : Leg Edema. * ROS: D ERMATOLOGY: no R kimmie. n o H matilde. G ASTROENTEROLOGY: no N ausea. n o V omiting. O PTHALMOLOGY: Negative for d enies vision issues. U ROLOGY: no D ifficulty urinating. n [...] tablet Orally Once a day , Taking Kionex 15 GM/60ML Suspension 60 mL orally 3 times a week (M,W,F) , Medication List reviewed and reconciled with the patient * Allergies: N .K.D.A. Objective: * Vitals: W t:168.4, Temp:97.6, BP:124/60, HR:48, O2 Sat:99% on RA, Nurse:joanna, Ht: 66.50, BMI:26.77. * Examination: C ardiology: General Appearance: N AD. He continues to gain weight since his esophageal dilatation. H EENT: V oice is c hronically hoarse. .?Carotid upstroke: n ormal, no bruits. H eart sounds: R RR, normal S1, S2. M urmur, click , gallop: n one. L ungs: c lear, no rales or wheezes. A bdomen: s oft, nontender, positive BS. E xtremities: n o leg edema. * Physical Examination: G ENERAL: Pain Assessment: P ain level: 5, on a scale of 0-10 (with 10 being extreme pain). F unctional Status Assessment: P atient response to question of how often physical health interferes with daily activities: . Almost never Able to perform ADLs-including meal preparation, grocery shopping, housework, laundry, taking medications or handling finances. Cognitive Status: alert and oriented. Ambulation Status: Fully ambulatory . F all Risk Assessment: I ndependant in ambulation, adequate lighting in home. Patient has fallen or had trouble walking within the past 12 months. D epression Screening: D enies depressed mood or anxiety. Describes emotional health as: calm. B ladder Control Screening: s danielle hudson. Assessment: * Assessment: 1. A dult general medical examination - Z00.00 (Primary) 2 . H ypothyroidism - E03.9 3 . S tage 3b chronic kidney disease - N18.32 4 . P olycythemia vera - D45 5 . B enign prostatic hyperplasia with lower urinary tract symptoms - N40.1 6 . P ersonal history of nicotine dependence - Z87.891 7 . H TN (hypertension) - I10 8 . H yperuricemia - E79.0 ? 9 . B [place] 26.0-26.9,adult - Z68.26 Plan: * Treatment: 2. H ypothyroidism Refill Synthroid Tablet, 75 MCG, 1 tab(s), Orally, once a day, 90, Refills 1. 3. S tage 3b chronic kidney disease Notes: Continue follow-up with nephrology 4. P olycythemia vera Notes: Continue follow-up with Dr. Holder 5. B enign prostatic hyperplasia with lower urinary tract symptoms Refill Flomax Capsule, 0.4 MG, 2 cap(s), orally, once a day, 90 days, 180 Capsule, Refills 1. ? 6. P ersonal history of nicotine dependence I maging: Ultrasound : Aorta (Performed Date - 08/14/2024) n egative, incidental splenomegaly ?Imaging: CT Scan : Chest, low dose (Performed Date - 08/14/2024)?no suspicious lesions; known splenomegaly* Marquita Ahuja 07/25/2024 10:38 :59 AM > no auth required; CPT code 40704; faxed to [facility] Radha Lee 07/25/2024 11:13:03 AM > Appt, 08/14/24 9:00NorfMario Alberto hi 10/29/2024 08:46:25 AM EDT > reviewed 7.?HTN (hypertension)? Refill Bisoprolol Fumarate Tablet, 10 MG, 1 tab(s), orally, once a day, 90, Refills 1;?Continue Furosemide Tablet, 20 MG, 1 tablet, Orally, Once a day.?? 8.?Hyperuricemia? Refill Allopurinol Tablet, 100 MG, 1 tab(s), orally, 2 times a day, 180, Refills 1.?? * Procedure Codes: G 0439 ANNUAL WELLNESS VST; PPS SUBSQT VST, G2211 Complex e/m visit add on, G0444 ANNUAL DEPRESSION SCREENING 15 MIN, 1090F PRES/ABSN URINE INCON ASSESS, 3288F FALL RISK ASSESSMENT DOCD, 1170F FXNL STATUS ASSESSED, 1159F MED LIST DOCD IN RCRD, 1003F LEVEL OF ACTIVITY ASSESS, 1036F TOBACCO NON-USER, 3017F COLORECTAL CA SCREEN DOC REV, 4040F PNEUMOC IMM ORDER/ADMIN, 1125F AMNT PAIN NOTED PAIN PRSNT, 3074F SYST BP LT 130 MM HG, 3078F DIAST BP < 80 MM HG, G8510 NEG SCR Depression PT NOT ELIG F/U/PLN DOC * Preventive Medicine: Counseling: E motional health: [...] date. Screening / Special Tests: C olonoscopy , ortega-colitis. P SA 1 06/26/2023, normal. L karen cancer screening , ordered 04/2024- ne record testing performed. A AA screening r ecommended due to smoking history and age. * Follow Up: 6 Months * Images: Billing Information: * Visit Code: 21456 Office Visit, Est Pt., Level 3. Modifiers: 25 * Procedure Codes: G0439 ANNUAL WELLNESS VST; PPS SUBSQT VST. G2211 Complex e/m visit add on. G0444 ANNUAL DEPRESSION SCREENING 15 MIN. 1090F PRES/ABSN URINE INCON ASSESS. 3288F FALL RISK ASSESSMENT DOCD. 1170F FXNL STATUS ASSESSED. 1159F MED LIST DOCD IN RCRD. 1003F LEVEL OF ACTIVITY ASSESS. 1036F TOBACCO NON-USER. 3017F COLORECTAL CA SCREEN DOC REV. 4040F PNEUMOC IMM ORDER/ADMIN. 1125F AMNT PAIN NOTED PAIN PRSNT. 3074F SYST BP LT 130 MM HG. 3078F DIAST BP < 80 MM HG. G8510 NEG SCR Depression PT NOT ELIG F/U/PLN DOC. * Electronic signature of Mario Alberto Marshall MD on 03/27/2025 at 09:19 AM EST Sign off status: Pending * Provider: Mario Alberto Marshall M.D. Date: 0 07/25/2024 Generated for Antonio bland/Ronel/Dulceitting on: 1 05/27/2024 09:19 AM EST History and Physical Notes * HPI (History of Present Illness) Category Sub-Category Detail Notes Category Not es Cardiology Short of Breath Chest Pain Leg Edema HPI Patient is here today for Pt is here today for a 3 month check up and Medicare Annual Wellness Visit. Pt is fasting Physical Examination Category Sub-Category Detail Notes Section Note s GENERAL Pain Assessment: Pain level: 5, on a scale of 0-10 (with 10 being extreme pain) Functional Status Assessment: Patient response to question of how often physical health interferes with daily activities: . Almost never Able to perform ADLs-including meal preparation, grocery shopping, housework, laundry, taking medications or handling finances. Cognitive Status: alert and oriented. Ambulation Status: Fully ambulatory Fall Risk Assessment: Independant in amb ulation, adequate lighting in home. Patient has fallen or had trouble walking within the past 12 months Depression Screening: Denies depressed m ood or anxiety. Describes emotional health as: calm Bladder Control Screening: small problem s Examination Category Sub-Category Detail Notes Category Not es Cardiology Lungs: clear, no rales or wheezes HEENT: Voice is chronically hoarse. Heart sounds: RRR, normal S1, S2 Abdomen: soft, nontender, pos itive BS Carotid upstroke: normal, no bruits Extremities: no leg edema Murmur, click , gallop: none General Appearance: NAD. He continues to gain weight since his esophageal dilatation
--- OUTSIDE RECORDS SUMMARY | 2025-01-30 05:15 | XMS_ITS ---
Author Organization [facility] Address [address] [facility] 36 [facility] [address] [place] [id number] Care Team Providers Care Guest Services Assistant Name Role Phone Mario Alberto Marshall Primary Care Provider [phone] Allergies No Known Allergies Results Component Value Reference Range Notes P-Comprehensive Metabolic Pa kelton (CMP) Reviewed date:02/03/2025 06:50:58 PM Interpretation:GFR 25 Performing Lab: Notes/Report: CLIA: [id number] Calin Brothers MD, Spray Gunner [address] [place] [address] , [place] [address] Test performed by [employer] Sodium 138 135-145 mmol/L Potassium 5.3 3.5-5.3 [...] Interpretation:2,80 Performing Lab: Notes/Report: Test performed by [employer] [address] [place] [address] , [place] [address] Calin Brothers MD, Spray Gunner CLIA: [id number] TSH 2.80 0.43-5.25 mU/L P-Uric Acid Reviewed date:02/03/2025 06:50:58 PM Interpretation:8.6 Performing Lab: Notes/Report: Test performed by [facility] [address] , [address], [place] [address] Calin Brothers MD, Spray Gunner CLIA: [id number] Uric Acid 8.6 3.4-8.0 mg/dL REASON FOR [...] Provider Diagnosis [facility] [address] [facility] [address] [place], [place] [id number] 01/30/2025 Mario Alberto Marshall Hypothyroidism E03.9 ; [...] with nephrology Polycythemia vera Continue follow-up w [facility] Dr. Holder Next Appt Details Follow Up: 6 Months, Reason: Provider Name:Mario Alberto Rodriguez, 07/31/2025 10:15:00 AM, [address] [facility], [address], [place], [place], [id number], Progress Notes * Jonny CODY LDOB: 0 (74 yo M)Acc No.[id number]:01/30/2025 Progress Notes Patient: Jonny SCHWARZ Provider: Mario Alberto Marshall M.D. :1950 A ge:74 Y S ex:Male Date:01/30/2025 Address:[address] [place], [id number] Subjective: * Chief Complaints: * 1 . [...] for immunization - Z23 9 . B [place] 26.0-26.9,adult - Z68.26 Plan: * Treatment: Value [...] * Images: Billing Information: * Visit Code: 23335 Office Visit, Est Pt., Level 4. * [...] 01/30/2025 Generated for Antonio bland/Ronel/eTransmitting on: 1 05/27/2024 09:19 AM EST History [...]
--- OUTSIDE RECORDS SUMMARY | 2025-03-27 09:20 | XMS_ITS | Patient Health Record ---
Author Organization [facility] Address [address] [facility] [address] [place], [place] [id number] Care Team Providers Care Dry Cell Assembly Machine Tender Name Role Phone Mario Alberto Marshall Primary Care Provider Allergies No Known Allergies Results Component Value Reference Range Notes Ultrasound : Aorta Reviewed date:09/18/2024 12:02:27 AM Interpretation:negative, incidental splenomegaly Performing Lab: Notes/Report: negative, incidental splenomegaly CT Scan : Chest, low dose Reviewed date:10/29/2024 08:47:06 AM Interpretation:no suspicious lesions; known splenomegaly Performing Lab: Notes/Report: no suspicious lesions; known splenomegaly P-Comprehensive Metabolic [place] (CMP) Reviewed date:02/03/2025 06:50:58 PM Interpretation:GFR 25 Performing Lab: Notes/Report: Test performed by [facility] , [address], [place] [address] Calin Brothers MD, Senior Marketing Associate CLIA: [id number] Sodium 138 135-145 mmol/L Potassium 5.3 3.5-5.3 [...] Interpretation:2,80 Performing Lab: Notes/Report: Test performed by [facility] [address] , [address], [place] [address] Calin Brothers MD, Senior Marketing Associate CLIA: [id number] TSH 2.80 0.43-5.25 mU/L P-Uric Acid Reviewed date:02/03/2025 06:50:58 PM Interpretation:8.6 Performing Lab: Notes/Report: Test performed by [facility] [address] , [address], [place] [address] Calin Brothers MD, Senior Marketing Associate CLIA: [id number] Uric Acid 8.6 3.4-8.0 mg/dL P-Comprehensive Metabolic [place] (CMP) Reviewed date:04/26/2024 12:10:09 PM Interpretation: Performing Lab: Notes/Report: Test performed by [facility] [address] , [address], [place] [address] Calin Brothers MD, Senior Marketing Associate CLIA: [id number] Sodium 137 135-145 mmol/L Potassium 6.8 3.5-5.3 [...] Interpretation: Performing Lab: Notes/Report: Test performed by [facility] [address] , [address], [place] [address] Calin Brothers MD, Senior Marketing Associate CLIA: [id number] PSA 1.78 <4.00 ng/mL Please note this is an ultrasensitive PSA assay with a lower limit of detection of 0.014 ng/mL. This test is performed by the [employer] ECLIA methodology. Values obtained with different assay methods or kits cannot be directly compared. P-TSH Reviewed date:04/26/2024 12:10:09 PM Interpretation: Performing Lab: Notes/Report: Test performed by [facility] [address] , [address], [place] [address] Calin Brothers MD, Senior Marketing Associate CLIA: [id number] TSH 4.10 0.43-5.25 mU/L P-Uric Acid Reviewed date:04/26/2024 12:10:09 PM Interpretation: Performing Lab: Notes/Report: Test performed by [facility] [address] , [facility] [address], [place] [id number] Calin Brothers MD, Senior Marketing Associate CLIA: [id number] Uric Acid 7.7 3.4-8.0 mg/dL P-Potassium Reviewed date:05/14/2024 09:34:43 AM Interpretation:5.7 Performing Lab: Notes/Report: Test performed by [facility] [address] , [address], [place] [address] Calin Brothers MD, Senior Marketing Associate CLIA: [id number] Potassium 5.7 3.5-5.3 mmol/L Medications Medication SIG (Take, Route, Frequency, Duration) Notes Start Date End Date Status Loperamide HCl 2 MG 1 cap(s) Orally four times a day as needed 07/28/2023 Active Venlafaxine HCl 75 MG 1 tab orally daily Active Kionex 15 GM/60ML 60 mL orally [...] 1 tablet Orally Once a day Active ARIPiprazole 5 MG 1 tab(s) orally once a day Active Bisoprolol Fumarate 10 MG 1 tab(s) orall y once a day Active Hydroxyurea 500 MG as directed orally o nce a day Active Venlafaxine HCl 150 MG 1 TAB DAILY Active Immunizations Vaccine Route Administration Date Status Comme nts COVID 19 Moderna Unknown 07/09/2020 Administered COVID 19 Moderna Unknown 07/31/2020 Administered COVID 19 Moderna Unknown 03/07/2021 Administered COVID 19 Moderna Unknown 11/18/2021 Administered Fluzone High Dose (65yr and older) IM Intramuscular 04/23/2021 Administered Fluzone High Dose (65yr and older) Unknown 03/07/2022 Administered Fluzone High Dose (65yr and older) IM Intramuscular 04/27/2023 Administered Fluzone High Dose (65yr and older) IM Intramuscular 04/25/2024 Administered Fluzone High Dose (65yr and older) IM Intramuscular 01/30/2025 Administered PNEUMOVAX 23 VACCINE IM Intramuscular 04/27/2023 Administe red Prevnar (PCV20) IM Intramuscular 10/22/2021 Administered Problems Problem Type SNOMED Code ICD Code Onset Dates Problem Status W/U Status Risk Notes Problem Hypertension (58595306) HTN (hypertension) (I10) Active confirmed Problem Cardiac dysrhythmia (485187546) Cardiac dysrhythmia (I49.9) Active confirmed Problem Mixed anxiety and depressive disorder (065624254) Depression with anxiety (F41.8) Active confirmed Problem Dysphagia (95197800) Dysphagia (R13.10) Active confirmed Problem Polycythemia vera (295856322) Polycythemia vera (D45) Active confirmed Problem Nicotine dependence (61098332) Personal history of nicotine dependence (Z87.891) Active confirmed Problem Gastroesophageal reflux disease without esophagitis (243147379) Gastroesophageal reflux disease without esophagitis (K21.9) Active confirmed Problem Hypothyroidism (14529286) Hypothyroidism (E03.9) Active confirmed Problem Irritable bowel syndrome (43233464) Irritable bowel syndrome (K58.9) Active confirmed Problem Thrombocytosis (0997597) Thrombocytosis (D47.3) Active confirmed Problem Lower urinary tract symptoms due to benign prostatic hypertrophy (65631865080770) Benign prostatic hyperplasia with lower urinary tract symptoms (N40.1) Active confirmed Problem Chronic kidney disease stage 3B (disorder) (170329617) Stage 3b chronic kidney disease (N18.32) Active confirmed Vital Signs Heart Rate 75 /min 01/30/2025 Blood pressure diastolic 70 mm Hg 01/30/2025 Height 66.50 in 01/30/2025 Blood pressure systolic 118 mm Hg 01/30/2025 Weight 167.2 lbs 01/30/2025 BMI 26.58 kg/m2 01/30/2025 Encounters Encounter Location Date Provider Diagnosis [facility] [address] [facility] [address] [place] [id number] 04/25/2024 R Juanjo Marshall Hypothyroidism E03.9 ; Stage 3b chronic kidney disease N18.32 ; Polycythemia vera D45 ; Benign prostatic hyperplasia with lower urinary tract symptoms N40.1 ; Personal history of nicotine dependence Z87.891 ; HTN (hypertension) I10 ; Neoplasm of uncertain behavior of skin D48.5 ; Hyperuricemia E79.0 and Encounter for immunization Z23 [facility] [address] [place] [id number] 05/13/2024 R Juanjo Marshall Hyperkalemia E87.5 [facility] [address] [place] [id number] 07/25/2024 R Juanjo Marshall Adult general medica l examination Z00.00 ; Hypothyroidism E03.9 ; Stage 3b chronic kidney disease N18.32 ; Polycythemia vera D45 ; Benign prostatic hyperplasia with lower urinary tract symptoms N40.1 ; Personal history of nicotine dependence Z87.891 ; HTN (hypertension) I10 ; Hyperuricemia E79.0 and BMI 26.0-26.9,adult Z68.26 [facility] [address] [facility] [address] [place] [id number] 01/30/2025 R Juanjo Marshall Hypothyroidism E03.9 ; Stage 3b chronic kidney disease N18.32 ; Polycythemia vera D45 ; Benign prostatic hyperplasia with lower urinary tract symptoms N40.1 ; Personal history of nicotine dependence Z87.891 ; HTN (hypertension) I10 ; Hyperuricemia E79.0 ; Encounter for immunization Z23 and BMI 26.0-26.9,adult Z68.26 [facility] [address] [place], [place] [id number] 04/26/2024 R Juanjo Rolando High potassium E87.5 [facility] [address] [place], [place] [id number] 04/26/2024 R Juanjo Rolando [facility] [address] [place] [id number] 05/14/2024 R Juanjo Rolando [facility] [address] [place] [id number] 09/04/2024 R Juanjo Rolando [facility] [address] [place], [place] [id number] 09/18/2024 R Juanjo Rolando [facility] [address] [place], [place] [id number] 02/03/2025 R Juanjo Rolando Assessments Encounter Date Diagnosis (ICD Code) Assessment Notes Treatment Notes Treatment Clinical Notes Section Notes 04/25/2024 Stage 3b chronic kidney disease (ICD-10 - N18.32) 04/26/2024 High potassium (ICD-10 - E87.5) 04/25/2024 Hypothyroidism (ICD-10 - E03.9) 07/25/2024 Hypothyroidism (ICD-10 - E03.9) 07/25/2024 Adult general medical examination (ICD-10 - Z00.00) Patient instructed to return to office Annually for Annual Wellness Visits to include annual screenings of Pain assessment, Functional Ability assessment, Cognitive Ability assessment, Fall Risk assessment, Depression screening and Bladder control screening. 01/30/2025 Hypothyroidism (ICD-10 - E03.9) 01/30/2025 Stage 3b chronic kidney disease (ICD-10 - N18.32) Continue follow-up with nephrology 01/30/2025 Polycythemia vera (ICD-10 - D45) Continue follow-up with Dr. Holder 07/25/2024 Stage 3b chronic kidney disease (ICD-10 - N18.32) Continue follow-up with nephrology 05/13/2024 Hyperkalemia (ICD-10 - E87.5) 04/25/2024 Polycythemia vera (ICD-10 - D45) 04/25/2024 Benign prostatic hyperplasia with lower urinary tract symptoms (ICD-10 - N40.1) 07/25/2024 Polycythemia vera (ICD-10 - D45) Continue follow-up with Dr. Holder 01/30/2025 Benign prostatic hyperplasia with lower urinary tract symptoms (ICD-10 - N40.1) 01/30/2025 Personal history of nicotine dependence (ICD-10 - Z87.891) 07/25/2024 Benign prostatic hyperplasia with lower urinary tract symptoms (ICD-10 - N40.1) 04/25/2024 Personal history of nicotine dependence (ICD-10 - Z87.891) 04/25/2024 HTN (hypertension) (ICD-10 - I10) 07/25/2024 Personal history of nicotine dependence (ICD-10 - Z87.891) 01/30/2025 HTN (hypertension) (ICD-10 - I10) 01/30/2025 Hyperuricemia (ICD-10 - E79.0) 07/25/2024 HTN (hypertension) (ICD-10 - I10) 04/25/2024 Neoplasm of uncertain behavior of skin (ICD-10 - D48.5) 04/25/2024 Hyperuricemia (ICD-10 - E79.0) 07/25/2024 Hyperuricemia (ICD-10 - E79.0) 01/30/2025 Encounter for immunization (ICD-10 - Z23) 01/30/2025 BMI 26.0-26.9,adult (ICD-10 - Z68.26) 07/25/2024 BMI 26.0-26.9,adult (ICD-10 - Z68.26) 04/25/2024 Encounter for immunization (ICD-10 - Z23) Plan Of Treatment Pending Test Test Name Order Date Cologuard 10/27/2022 CT SCAN : CHEST, LUNG CANCER SCREENING L OW DOSE 04/25/2024 Next Appt Details Provider Name:Mario Alberto Rodriguez 07/31/2025 10:15:00 AM, [address], [address], [place], [place], [id number], Insurance Providers Payer Name Payer Address Payer Phone Subscriber Number Group Number Insured Name Patient Relationship to Insured Coverage Start Date Coverage End Date [employer] (MEDICAR E) [address] [address] [place] [address] 1 [id number] Jonny Spivey Self - patient is the [...]
--- OUTSIDE RECORDS SUMMARY | 2025-03-27 09:20 | XMS_ITS | Clinical Summary ---
Author Organization [facility] Address [address] [place] [address] Care Team Providers Care Retail District Manager Name Role Phone Samuel Marshall MD Primary Care Provider [phone]- [phone] Allergies No known active allergies Medications allopurinol (Zyloprim) 100 MG tablet Take 1 tablet (100 mg) by mouth 2 (two) times a day. Active ARIPiprazole (Abilify) 5 MG tablet Take 1 tablet (5 mg) by mouth Daily. 8 Active aspirin 81 MG EC tablet Take 1 tablet (81 mg) by mouth Daily. Active bisoprolol (Zebeta) 10 MG tablet Take 1 tablet (10 mg) by mouth Daily. 8 Active hydroxyurea (Hydrea) 500 MG capsule 1 (one) time each day at the same time. 9 Active Synthroid 75 MCG tablet Take 1 tablet (75 mcg) by mouth Daily. Active Flomax 0.4 MG 24 hr capsule 1 (one) time each day at the same time. 8 Active venlafaxine XR (Effexor-XR) 150 MG 24 hr capsule Take 1 capsule (150 mg) by mouth 1 (one) time each day. Active venlafaxine XR (Effexor-XR) 75 MG 24 hr capsule TAKE 1 CAPSULE BY MOUTH ONCE DAILY WITH 150 MG VENLAFAXINE 4 Active torsemide 40 MG tabletIndications :Edema due to hypervolemia,Hype rvolemia associated with renal insufficiency Take 40 mg by mouth daily. 90 tablet 3 5 Active Active Problems Problem Noted Date Diagnosed Date Hypertensive chronic kidney disease with stage 1 through stage 4 chronic kidney disease, or unspecified chronic kidney disease 12/27/2024 Hypervolemia associated with renal insufficiency 05/13/2024 CKD stage 3b, GFR 30-44 ml/min 05/13/2024 Chronic kidney disease-mineral and bone disorder (CKD-MBD) 05/13/2024 Hyperkalemia 05/13/2024 Elevated alkaline phosphatase level 05/13/2024 Encounters Date Type Department Care Team Description 12/27/2024 9:20 AM EDT Office Visit [facility] [address] [place] [address] Ben Lozada MD Hypertensive chronic kidney disease with stage 1 through stage 4 chronic kidney disease, or unspecified chronic kidney disease (Primary Dx); Edema due to hypervolemia; Hypervolemia associated with renal insufficiency; Hyperkalemia; CKD stage 3b, GFR 30-44 ml/min (CMS/HCC); Chronic kidney disease-mineral and bone disorder (CKD-MBD) 12/27/2024 Travel from Last 3 Months Immunizations Immunization Administration [...] Sign Reading Time Taken Comments Blood Pressure 116/59 12/27/2024 9:13 AM EDT Pulse 66 12/27/2024 9:13 AM EDT Temperature 36.4 C (97.6 F) 05/13/2024 10:59 AM EST Respiratory Rate 18 12/27/2024 9:13 AM EDT Oxygen Saturation 98% 12/27/2024 9:13 AM EDT Inhaled Oxygen Concentration - - Weight 75.3 kg (166 lb) 12/27/2024 9:13 AM EDT Height 170.2 cm (5' 7 ) 12/27/2024 9:13 AM EDT Body Mass Index 26 12/27/2024 9:13 AM EDT Plan of Treatment Upcoming Encounters Date Type Department Care Team (Late st Contact Info) Description 05/02/2025 9:40 AM EST Office Visit [facility] [address] [place] [address] Ben Lozada MD [address] [place] [address] Health Maintenance Due Date Last Done Comments [facility]-Diabetes: Hemoglobin A1C 1950 [facility]-Hepatitis C Screening 1950 [facility]-Medicare Annual Wellness (AWV) 1950 [facility]-Infant/Child/Adol SDOH Screenings 1950 Diabetes: Dental Exam 09/13/1959 [facility]- SDOH Screenings 09/13/1967 [facility]-Adult SDOH Screenings 09/13/1967 [facility]-DTaP,Tdap,and Td Vaccines (1 - Tdap) 1968 [facility]-Zoster Vaccines (1 of 2) 1968 CT Colonography 1994 Colonoscopy 1994 FIT 1994 FOBT 1994 Sigmoidoscopy 1994 [facility]-Abdominal Aortic Aneurysm (AAA) Screening 2014 FIT-DNA 11/05/2022 11/06/2019 [facility]-Colorectal Cancer Screening 11/05/2022 [facility]-RSV Vaccine: 60+ Years or (1 - 1-dose 75+ series) 2024 [id number] Vaccine ( - season) 2025 02/06/2022, 11/18/2021, 03/07/2021, Additional history exists [facility]-Influenza Vaccine (#1) 01/13/202504/25, 03/07/2022, 04/23/2021 [facility]-Depression Screening 05/13/2025 05/13/2024 [facility]-Pneumococcal Vaccine: 50+ Years Completed 04/27/2023, 10/22/2021 [facility]-Obesity Intervention Completed 025, 08/16/2024, 05/13/2024 HPV Vaccines Aged Out No longer eligi [...] patient's age to complete this topic Insurance MEDICARE Care Teams Retail District Manager Relationship Specialty Start Date End Date Samuel [place] MD [address] [place] [address] PCP - General 09/25/20
[2025-03-27 10:14] LABS: Hematocrit 34.5 % (42.0-52.0); Hemoglobin 10.5 g/dL (14.1-18.0); Immature Granulocytes % 10.8 %; Mean Corpuscular HGB Conc 30.4 g/dL (31.8-35.4); Mean Corpuscular Hemoglobin 29.0 pg (27.0-31.2); Mean Corpuscular Volume 95.3 fl (80-94); Nucleated Red Blood Cells % 0.5 %; Platelet Count 377 K/mm3 (142-424); Red Blood Count 3.62 M/mm3 (4.60-6.20); Red Cell Distribution Width-SD 60.4 fL; White Blood Count 12.7 K/mm3 (4.8-10.8)
[2025-03-27 11:13] LABS: Alanine Aminotransferase 6 U/L (12-78); Albumin Level 4.2 g/dl (3.5-5.0); Albumin/Globulin Ratio 2.1 (1.1-1.8); Alkaline Phosphatase 99 U/L (38-126); Anion Gap 15.0 mEq/L (5-15); Aspartate Amino Transferase 17 U/L (17-59); Bilirubin,Total 0.7 mg/dl (0.2-1.3); Blood Urea Nitrogen 55 mg/dl (9-20); Calcium 8.2 mg/dl (8.4-10.2); Carbon Dioxide 23 mmol/L (22.0-30.0); Chloride 102 mmol/L (98-107); Creatinine,Serum 3.00 mg/dl (0.66-1.25); Estimated Glomerular Filt Rate 21 ml/min (>60); GFR (African American) 25 ML/MIN (>60); Globulin 2.0 g/dL (1.3-3.2); Glucose 108 mg/dl (74-100); Potassium 5.0 mmoL/L (3.5-5.1); Sodium 135 mmol/L (136-145); Total Protein,Serum 6.2 g/dl (6.3-8.2)
[2025-03-27 11:27] LABS: Total Cells Counted 100
[2025-03-27 11:35] LABS: Hypochromasia 1+; Ovalocytes 1+; Poikilocytosis 1+; Polychromasia 1+
== END 2025-03-27 23:59 | disposition home or self-care (01) ==
LOC: LAB 09:17
PROVIDERS: PCP Family Medicine; Visit Provider Internal Medicine Medical Oncology
DX: D45 Polycythemia vera (principal)
CPT/HCPCS: 36415; 80053; 85007; 85025

== ENCOUNTER 2025-04-28 10:51 | Outpatient (CLI) | payer MEDICARE, SELFPAY ==
[2025-04-28 11:22] LABS: Hematocrit 34.1 % (42.0-52.0); Hemoglobin 10.0 g/dL (14.1-18.0); Immature Granulocytes % 11.7 %; Mean Corpuscular HGB Conc 29.3 g/dL (31.8-35.4); Mean Corpuscular Hemoglobin 27.9 pg (27.0-31.2); Mean Corpuscular Volume 95.0 fl (80-94); Nucleated Red Blood Cells % 0.6 %; Platelet Count 581 K/mm3 (142-424); Red Blood Count 3.59 M/mm3 (4.60-6.20); Red Cell Distribution Width-SD 63.1 fL; White Blood Count 14.2 K/mm3 (4.8-10.8)
[2025-04-28 12:41] LABS: Total Cells Counted 100
[2025-04-28 12:43] LABS: Tear Drop Cells 1+
[2025-04-28 12:44] LABS: Poikilocytosis 1+
== END 2025-04-28 23:59 | disposition home or self-care (01) ==
PROVIDERS: PCP Family Medicine; Visit Provider Internal Medicine Medical Oncology
DX: D45 Polycythemia vera (principal)
CPT/HCPCS: 36415; 85007; 85025

== ENCOUNTER 2025-04-29 11:24 | Outpatient (CLI) | payer MEDICARE, SELFPAY ==
--- OUTSIDE RECORDS SUMMARY | 2024-01-25 05:15 | XMS_ITS ---
Author Organization [facility] Address [address] [facility] [address] [facility] [address] [place] [id number] Care Team Providers Care Chargeback Specialist Name Role Phone Mario Alberto Marshall Primary Care Provider [phone] Allergies No Known Allergies Results Component Value Reference Range Notes P-Basic Metabolic Panel (BMP ) Reviewed date:01/28/2024 06:51:01 PM Interpretation:K 6.0, BUN 25, CO2 21, Creat 1.72, eGFR 41 Performing Lab: Notes/Report: Test performed by [facility] [address] [place] [address] , [address], [place] [address] Calin Brothers MD, Research Interviewer CLIA: [id number] Sodium 139 135-145 mmol/L Potassium 6.0 3.5-5.3 mmol/L Chloride 105 97-108 mmol/L CO2 21 22-32 mmol/L Glucose 83 65-99 mg/dL BUN 25 8-23 mg/dL Creatinine 1.72 0.70-1.30 mg/dL Calcium 8.6 8.6-10.4 mg/dL eGFR by Creatinine 41 >59 mL/min/1.73m2 P-TSH Reviewed date:01/28/2024 06:51:01 PM Interpretation:4.28 Performing Lab: Notes/Report: Test performed by [facility] [address] [place] [address] [address], [address], [place] [address] Calin Brothers MD, Research Interviewer CLIA: [id number] TSH 4.28 0.43-5.25 mU/L P-Uric Acid Reviewed date:01/28/2024 06:51:01 PM Interpretation:6.6 Performing Lab: Notes/Report: Test performed by [facility] [address] [place] [address] , [address], [place] [address] Calin Brothers MD, Research Interviewer CLIA: [id number] Uric Acid 6.6 3.4-8.0 mg/dL REASON FOR VISIT 3 Month Check Up, Needs labs Medications Medication SIG (Take, Route, Frequency, Duration) Notes Start Date End Date Status Venlafaxine HCl 75 MG 1 tab orally daily Active Furosemide 20 MG 1 tablet Orally Once a day Active Loperamide HCl 2 MG 1 cap(s) Orally four times a day as needed 07/28/2023 Active Bisoprolol Fumarate 10 MG 1 tab(s) orall y once a day Active Flomax 0.4 MG 2 cap(s) orally once a day; Duration: 90 days Active ARIPiprazole 5 MG 1 tab(s) orally once a day Active Venlafaxine HCl 150 MG 1 TAB DAILY Active Hydroxyurea 500 MG as directed orally o nce a day Active Allopurinol 100 MG 1 tab(s) orally 2 ti mes a day Active Synthroid 75 MCG 1 tab(s) Orally once a day Active Aspirin Adult Low Dose 81 MG 1 tab(s) orally once a day; Duration: 30 day(s) Active Vital Signs Blood pressure systolic 126 mm Hg 01/25/20 24 Blood pressure diastolic 70 mm Hg 024 Heart Rate 64 /min 01/25/2024 Height 66.50 in 01/25/2024 Weight 165.8 lbs 01/25/2024 BMI 26.36 kg/m2 01/25/2024 Encounters Encounter Location Date Provider Diagnosis [facility] [address] [facility] [address] [id number] 01/25/2024 Mario Alberto Marshall Peripheral edema R60 .0 ; Cardiac dysrhythmia I49.9 ; Hypothyroidism E03.9 ; Hyperuricemia E79.0 ; Polycythemia vera D45 and Benign prostatic hyperplasia with lower urinary tract symptoms N40.1 Assessments Encounter Date Diagnosis (ICD Code) Assessment Notes Treatment Notes Treatment Clinical Notes Section Notes 01/25/2024 Peripheral edema (ICD-10 - R60.0) 01/25/2024 Cardiac dysrhythmia (ICD-10 - I49.9) 01/25/2024 Hypothyroidism (ICD-10 - E03.9) 01/25/2024 Hyperuricemia (ICD-10 - E79.0) 01/25/2024 Polycythemia vera (ICD-10 - D45) 01/25/2024 Benign prostatic hyperplasia with lower urinary tract symptoms (ICD-10 - N40.1) Plan Of Treatment Medication Medication Name Sig Start Date Stop Date Notes Furosemide 20 MG 1 tablet Orally Once a day Bisoprolol Fumarate 10 MG 1 tab(s) orally once a day Flomax 0.4 MG 2 cap(s) orally once a day; Duration: 90 days Allopurinol 100 MG 1 tab(s) orally 2 times a day Synthroid 75 MCG 1 tab(s) Orally once a day Next Appt Details Follow Up: 6 Months, Reason: Provider Name:Mario Alberto Rodriguez, 07/31/2025 10:15:00 AM, [address], [place], [place], [id number], Progress Notes * Jonny CODY LDOB: 0 (74 yo M)Acc No.[id number]:01/25/2024 Progress Notes Patient: Mario Alberto ANGIETY Jonny Hanley Provider: Mario Alberto Marshall M.D. :1950 A ge:73 Y S ex:Male Date:01/25/2024 Address:[facility] [address]le[address], Mary pt [address], [facility] Subjective: * Chief Complaints: * 1 . 3 Month Check Up. 2. Needs labs. * HPI: H PI: Jonny returns for 3-month follow-up. He is still having issues with leg edema. This did improve some while on the Lasix but is out of medication. Denies increased shortness of breath. He continues to follow with Dr. Holder for his polycythemia and blood work last month showed stable renal functions and normal potassium. He is not currently seeing nephrology. G astroenterology: He has had no further issues with dysphagia. Appetite is good and he has gained some weight. * ROS: D ERMATOLOGY: no R [...] cigarettes. Alcohol: no. * Medications: T aking Allopurinol 100 MG Tablet 1 tab(s) orally 2 times a day , Taking Flomax 0.4 MG Capsule 2 cap(s) orally once a day , Taking Bisoprolol Fumarate 10 MG Tablet 1 tab(s) orally once a day , Taking Aspirin Adult Low Dose 81 MG Tablet Delayed Release 1 tab(s) orally once a day , Taking Hydroxyurea 500 MG Capsule as directed orally once a day , Taking ARIPiprazole 5 MG Tablet 1 tab(s) orally once a day , Taking Venlafaxine HCl 150 MG TAB 1 TAB DAILY , Taking Venlafaxine HCl 75 MG Tablet 1 tab orally daily , Taking Loperamide HCl 2 MG Capsule 1 cap(s) Orally four times a day as needed , Taking Furosemide 20 MG Tablet 1 tablet Orally Once a day , Taking Synthroid 75 MCG Tablet 1 tab(s) Orally once a day , Medication List reviewed and reconciled with the patient * Allergies: N .K.D.A. Objective: * Vitals: W t:165.8, Temp:97.7, BP:126/70, HR:64, Nurse:MARIA DE JESUS, Ht: 66.50, BMI:26.36. * Examination: C ardiology: General Appearance: N AD. Weight gain noted. Color good. H EENT: V oice is slightly hoarse, otherwise unremarkable. C arotid upstroke: n ormal, no bruits. H eart sounds: R RR, normal S1, S2. M urmur, click , gallop: n one. L ungs: c lear, no rales or wheezes. A bdomen: s oft, nontender, positive BS. E xtremities: 1 -2+ PTE. Assessment: * Assessment: 1. P eripheral edema - R60.0 (Primary) 2 . C ardiac dysrhythmia - I49.9? 3. H ypothyroidism - E03.9 4 . H yperuricemia - E79.0 ? 5 . P olycythemia vera - D45 6 . B enign prostatic hyperplasia with lower urinary tract symptoms - N40.1 Plan: * Treatment: 2. C ardiac dysrhythmia Refill Bisoprolol Fumarate Tablet, 10 MG, 1 tab(s), orally, once a day, 90, Refills 1. L AB: P-Basic Metabolic Panel (BMP) (Collection Date & Time - 01/25/2024 09:15 AM) K 6.0, BUN 25, CO2 21, Creat 1.72, eGFR 41 Value Reference Range B UN 25 H 8-23 - mg/dL * C alcium 8.6 8.6-10.4 - mg/dL * C hloride 105 97-108 - mmol/L * C O2 21 L 22-32 - mmol/L * C reatinine 1.72 H 0.70-1.30 - mg/dL * G lucose 83 65-99 - mg/dL * P otassium 6.0 H 3.5-5.3 - mmol/L * S odium 139 135-145 - mmol/L * e GFR by Creatinine 41 L >59 - mL/min/1.73m2 * Mario Alberto Marshall 01/28/2024 6 :49:55 PM > See 01/26/24 phone encounter ?LAB: P-TSH (Collection Date & Time - 01/25/2024 09:15 AM)?4.28* Value Reference Range T SH 4.28 0.43-5.25 - mU/L * Mario Alberto Marshall 01/28/2024 6 :49:55 PM > See 01/26/24 phone encounter 3.?Hypothyroidism? Refill Synthroid Tablet, 75 MCG, 1 tab(s), Orally, once a day, 90, Refills 1.?LAB: P-TSH (Collection Date & Time - 01/25/2024 09:15 AM)?4.28* Value Reference Range T SH 4.28 0.43-5.25 - mU/L * Mario Alberto Marshall 01/28/2024 6 :49:55 PM > See 01/26/24 phone encounter 4.?Hyperuricemia? Refill Allopurinol Tablet, 100 MG, 1 tab(s), orally, 2 times a day, 180, Refills 1.?LAB: P-Uric Acid (Collection Date & Time - 01/25/2024 09:15 AM)?6.6* Value Reference Range U martir Acid 6.6 3.4-8.0 - mg/dL * Mario Alberto Marshall 01/28/2024 6 :49:55 PM > See 01/26/24 phone encounter 5.?Benign prostatic hyperplasia with lower urinary tract symptoms? Refill Flomax Capsule, 0.4 MG, 2 cap(s), orally, once a day, 90 days, 180 Capsule, Refills 1.? * Follow Up: 6 Months * Images: Billing Information: * Visit Code: 59362 Office Visit, Est Pt., Level 4. * Procedure Codes: * Electronic signature of Mario Alberto Marshall MD on 04/29/2025 at 11:38 AM EST Sign off status: Pending * Provider: Mario Alberto Marshall M.D. Date: 0 01/25/2024 Generated for Antonio bland/Ronel/eTvanesaitting on: 1 06/30/2024 11:38 AM EST History and Physical Notes * Examination Category Sub-Category Detail Notes Category Not es Cardiology Lungs: clear, no rales or wheezes HEENT: Voice is slightly ho arse, otherwise unremarkable Heart sounds: RRR, normal S1, S2 Abdomen: soft, nontender, pos itive BS Carotid upstroke: normal, no bruits Extremities: 1-2+ PTE Murmur, click , gallop: none General Appearance: NAD. Weight gain not ed. Color good
--- OUTSIDE RECORDS SUMMARY | 2024-02-05 05:30 | XMS_ITS ---
Author Organization [facility] Address 1210 [facility] 36 [facility] [address] [place] [phone] Care Team Providers Care Laboratory Secretary Name Role Phone Mario Alberto Marshall Primary Care Provider [phone] Results Component Value Reference Range Notes P-Basic Metabolic Panel (BMP ) Reviewed date:02/08/2024 08:39:05 AM Interpretation:gluc 122, bun 31, Cr 2.01, Ca 8.5, gfr 34 Performing Lab: Notes/Report: Test performed by [facility], [address] , [address], [place] [address] Calin Brothers MD, Obiee Lead Developer CLIA: [id number] Sodium 140 135-145 mmol/L Potassium 5.3 3.5-5.3 [...] Encounter Location Date Provider Diagnosis Unique [address] [place], [place] [id number] 02/05/2024 Mario Alberto Marshall HTN (hypertension) I [...] Name:Mario Alberto Rodriguez, 07/31/2025 10:15:00 AM, [address], [address], [place], [place], [id number], Progress Notes * Jonny CODY LDOB: 0 (74 yo M)Acc No.[id number]:02/05/2024 Patient: Jonny SCHWARZ Provider: Mario Alberto Marshall M.D. :1950 A ge:73 Y S ex:Male Date:02/05/2024 Address:[facility] [address], [facility] Subjective: * Chief Complaints: * 1 . [...] Mario Alberto Marshall MD on 04/29/2025 at 11:39 AM EST Sign off status: Pending * Provider: Mario Alberto Marshall M.D. Date: 0 02/05/2024 Generated for Antonio bland/Ronel/Payam on: 1 06/30/2024 11:39 AM EST
--- OUTSIDE RECORDS SUMMARY | 2024-04-25 05:00 | XMS_ITS ---
Author Organization [facility] Address 1210 [facility] 36 [facility] [address] [place] [id number] Care Team Providers Care Label Stamper Name Role Phone Mario Alberto Marshall Primary Care Provider [phone] Allergies No Known Allergies Results Component Value Reference Range Notes P-Comprehensive Metabolic Pa kelton (CMP) Reviewed date:04/26/2024 12:10:09 PM Interpretation: Performing Lab: Notes/Report: Test performed by [facility] [address] [place] [address] , [address], [place] [address] Calin Brothers MD, Forensic Structural Engineer CLIA: [id number] Sodium 137 135-145 mmol/L Potassium 6.8 3.5-5.3 [...] Interpretation: Performing Lab: Notes/Report: Test performed by [facility] [address] [place], [place] [address] [place] , [address], [place] [address] Calin Brothers MD, Forensic Structural Engineer CLIA: [id number] PSA 1.78 <4.00 ng/mL Please note this is an ultrasensitive PSA assay with a lower limit of detection of 0.014 ng/mL. This test is performed by the [employer] ECLIA methodology. Values obtained with different assay methods or kits cannot be directly compared. P-TSH Reviewed date:04/26/2024 12:10:09 PM Interpretation: Performing Lab: Notes/Report: Test performed by [facility] [address] [place] [address] , [address], [place] [address] Calin Brothers MD, Forensic Structural Engineer CLIA: [id number] TSH 4.10 0.43-5.25 mU/L P-Uric Acid Reviewed date:04/26/2024 12:10:09 PM Interpretation: Performing Lab: Notes/Report: Test performed by [facility] [address] [place] [address] , [address], [place] [address] Calin Brothers MD, Forensic Structural Engineer CLIA: [id number] Uric Acid 7.7 3.4-8.0 mg/dL Reason For Referral Reason lesion in nose suspi cious for basal cell cancer. 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 Referred Provider [...] older) IM Intramuscular 04/25/2024 Administered Vital Signs Blood pressure systolic 116 mm Hg 04/25/20 24 Blood pressure diastolic 58 mm Hg 024 Heart Rate 67 /min 04/25/2024 Height 66.50 in 04/25/2024 Weight 171.4 lbs 04/25/2024 BMI 27.25 kg/m2 04/25/2024 Encounters Encounter Location Date Provider Diagnosis [facility] 1210 [facility] [address] [phone] 04/25/2024 Mario Alberto Marshall Hypothyroidism E03.9 ; [...] for basal cell cancer. Prefers appt in [place], . ENT Next Appt Details Follow Up: 3 Months, Reason: Provider Name:Mario Alberto Rodriguez, 07/31/2025 10:15:00 AM, [address], [address] , [place], [place], [id number], Progress Notes * Jonny CODY LDOB: 0 (74 yo M)Acc No.[id number]:04/25/2024 Progress Notes Patient: Jonny SCHWARZ Provider: Mario Alberto Marshall M.D. :1950 A ge:73 Y S ex:Male Date:04/25/2024 Address:[address] [place] [address], [address] , [place] [id number] Subjective: * Chief Complaints: * 1 . [...] AM > no auth required; CPT code [id number],Marquita 04/25/2024 10:51:22 AM > faxed to [facility] in [place] 5.?HTN (hypertension)? Refill Bisoprolol Fumarate Tablet, 10 [...] for basal cell cancer. Prefers appt in [place] 7.?Hyperuricemia? Refill Allopurinol Tablet, 100 MG, 1 tab(s), orally, 2 times a day, 180, Refills 1.?? * Immunizations: Fluzone High Dose (65yr and older) : 0.5 mL (Route: Intramuscular) given by Lis White on Right Deltoid (Encounter for immunization) * Procedure Codes: G 2211 Complex e/m visit add on * Follow Up: 3 Months * Images: Billing Information: * Visit Code: 40756 Office Visit, Est Pt., Level 4. * Procedure Codes: G2211 Complex e/m visit add on. * Electronic signature of Mario Alberto Marshall MD on 04/29/2025 at 11:38 AM EST Sign off status: Pending * Provider: Mario Alberto Marshall M.D. Date: 06/26/2023 Generated for Antonio bland/Ronel/Dulceitting on: 06/30/2024 11:38 AM EST History and Physical [...] for basal cell cancer. Prefers appt in [place]
--- OUTSIDE RECORDS SUMMARY | 2024-05-13 07:30 | XMS_ITS ---
Author Organization Mary[facility] Address 1210 [facility] 36 [facility] [address] [place] [id number] Care Team Providers Care Green Jobs Trainer Name Role Phone Mario Alberto Marshall Primary Care Provider Results Component Value Reference Range Notes P-Potassium Reviewed date:05/14/2024 09:34:43 AM Interpretation:5.7 Performing Lab: Notes/Report: Test performed by [facility], [employer] [address] [place] [address] , [address], [place] [address] Calin Brothers MD, Stoker Erector CLIA: [id number] Potassium 5.7 3.5-5.3 mmol/L REASON FOR VISIT lab draw Encounters Encounter Location Date Provider Diagnosis [facility] [address] [facility] [address] [place] [phone] 05/13/2024 Mario Alberto Marshall Hyperkalemia E87.5 Assessments Encounter Date Diagnosis (ICD Code) Assessment Notes Treatment Notes Treatment Clinical Notes Section Notes 05/13/2024 Hyperkalemia (ICD-10 - E87.5) Plan Of Treatment Next Appt Details Provider Name:Mario Alberto Rodriguez, 07/31/2025 10:15:00 AM, [address] [facility], [address], [place], [id number], Progress Notes * Jonny CODY LDOB: 0 (74 yo M)Acc No.[id number]:05/13/2024 Patient: Jonny SCHWARZ Provider: Mario Alberto Marshall M.D. :1950 A ge:73 Y S ex:Male Date:05/13/2024 Address:[address], [facility], [id number] Subjective: * Chief Complaints: * 1 . [...] M.D. Date: Generated for Antonio bland/Ronel/Payam on: 06/30/2024 11:39 AM EST
--- OUTSIDE RECORDS SUMMARY | 2024-07-25 05:00 | XMS_ITS ---
Author Organization [facility] [facility] [address] [place] [id number] Care Team Providers Care Surface To Air Weapons Officer Name Role Phone Mario Alberto Marshall Primary [...] Provider Diagnosis Unique [address] [facility] [address] [place] [id number] 07/25/2024 Mario Alberto Marshall Adult general medica [...] [address], [address], [place], [place], [id number], Progress Notes * Jonny CODY LDOB: 0 (74 yo M)Acc No.[id number]:07/25/2024 Annual Wellness Visit Patient: Jonny SCHWARZ Dayan Provider: Mario Alberto Marshall M.D. :1950 A ge:73 Y S ex:Male Date:07/25/2024 Address:[address] [place] [address], A pt B, [facility] Subjective: * Chief Complaints: * 1 . 3 month check and AWV. * HPI: H PI: 73 year old male presents with c/o Patient is here today for?Pt is here today for a 3 m [facility] check up and Medicare Annual Wellness Visit. [...] yperuricemia - E79.0 ? 9 . B [place] 26.0-26.9,adult - Z68.26 Plan: * Treatment: 2. [...] AM > no auth required; CPT code 25685; faxed to [facility] Radha Lee 07/25/2024 11:13:03 AM > [...] * Images: Billing Information: * Visit Code: 17168 Office Visit, Est Pt., Level 3. Modifiers: [...] 07/25/2024 Generated for Antonio bland/Ronel/Dulceitting on: 1 06/30/2024 11:39 AM EST History and Physical Notes * [...]
--- OUTSIDE RECORDS SUMMARY | 2025-01-30 05:15 | XMS_ITS ---
Author Organization [facility] Address [address] [facility] [address] [facility] [address] [place] [id number] Care Team Providers Care Grommet Man Name Role Phone Mario Alberto Marshall Primary Care Provider [phone] Allergies No Known Allergies Results Component Value Reference Range Notes P-Comprehensive Metabolic Pa kelton (CMP) Reviewed date:02/03/2025 06:50:58 PM Interpretation:GFR 25 Performing Lab: Notes/Report: Test performed by [facility] [address] [place], [place] [id number] [place] , [address], [place] [address] Calin Brothers MD, Tax Technician CLIA: [id number] Sodium 138 135-145 mmol/L Potassium 5.3 3.5-5.3 mmol/L Chloride 103 97-108 mmol/L CO2 23 20-32 mmol/L Glucose 104 65-99 mg/dL BUN 47 8-23 mg/dL Creatinine 2.60 0.70-1.30 mg/dL Calcium 8.6 8.6-10.4 mg/dL eGFR by Creatinine 25 >59 mL/min/1.73m2 Protein 6.1 6.0-8.3 g/dL Albumin 4.3 3.5-5.3 g/dL Alkaline Phosphatase 114 40-129 IU/L ALT (SGPT) 6 <5-55 IU/L AST (SGOT) 10 <5-46 IU/L Bilirubin, Total 0.5 <0.2-1.2 mg/dL A/G Ratio 2.4 1.1-2.5 P-TSH Reviewed date:02/03/2025 06:50:58 PM Interpretation:2,80 Performing Lab: Notes/Report: Test performed by [facility] [address] [place], [place] [address] [place] , [address], [place] [address] Calin Brothers MD, Tax Technician CLIA: [id number] TSH 2.80 0.43-5.25 mU/L P-Uric Acid Reviewed date:02/03/2025 06:50:58 PM Interpretation:8.6 Performing Lab: Notes/Report: Test performed by [facility] [address] , [address], [place] [address] Calin Brothers MD, Tax Technician CLIA: [id number] Uric Acid 8.6 3.4-8.0 mg/dL REASON FOR VISIT 6 month check, Needs labs Medications Medication SIG (Take, Route, Frequency, Duration) Notes Start Date End Date Status Loperamide HCl 2 MG 1 cap(s) Orally four times a day as needed 07/28/2023 Active Venlafaxine HCl 75 MG 1 tab orally daily Active ARIPiprazole 5 MG 1 tab(s) orally once a day Active Hydroxyurea 500 MG as directed orally o nce a day Active Venlafaxine HCl 150 MG 1 TAB DAILY Active Flomax 0.4 MG 2 cap(s) orally once a day; Duration: 90 days Active Aspirin Adult Low Dose 81 MG 1 tab(s) orally once a day; Duration: 30 day(s) Active Allopurinol 100 MG 1 tab(s) orally 2 ti mes a day Active Furosemide 20 MG 1 tablet Orally Once a day Active Bisoprolol Fumarate 10 MG 1 tab(s) orall y once a day Active Kionex 15 GM/60ML 60 mL orally 3 times a week (M,W,F) 04/26/2024 Active Synthroid 75 MCG 1 tab(s) Orally once a day Active Immunizations Vaccine Route Administration Date Status Comme nts Fluzone High Dose (65yr and older) IM Intramuscular 01/30/2025 Administered Vital Signs Weight 167.2 lbs 01/30/2025 Blood pressure systolic 118 mm Hg 01/31/20 25 Blood pressure diastolic 70 mm Hg 025 Heart Rate 75 /min 01/30/2025 Height 66.50 in 01/30/2025 BMI 26.58 kg/m2 01/30/2025 Encounters Encounter Location Date Provider Diagnosis [facility] [address] [facility] [address] [place], [place] [id number] 01/30/2025 Mario Alberto Marshall Hypothyroidism E03.9 ; Stage 3b chronic kidney disease N18.32 ; Polycythemia vera D45 ; Benign prostatic hyperplasia with lower urinary tract symptoms N40.1 ; Personal history of nicotine dependence Z87.891 ; HTN (hypertension) I10 ; Hyperuricemia E79.0 ; Encounter for immunization Z23 and BMI 26.0-26.9,adult Z68.26 Assessments Encounter Date Diagnosis (ICD Code) Assessment Notes Treatment Notes Treatment Clinical Notes Section Notes 01/30/2025 Hypothyroidism (ICD-10 - E03.9) 01/30/2025 Stage 3b chronic kidney disease (ICD-10 - N18.32) Continue follow-up with nephrology 01/30/2025 Polycythemia vera (ICD-10 - D45) Continue follow-up with Dr. Holder 01/30/2025 Benign prostatic hyperplasia with lower urinary tract symptoms (ICD-10 - N40.1) 01/30/2025 Personal history of nicotine dependence (ICD-10 - Z87.891) 01/30/2025 HTN (hypertension) (ICD-10 - I10) 01/30/2025 Hyperuricemia (ICD-10 - E79.0) 01/30/2025 Encounter for immunization (ICD-10 - Z23) 01/30/2025 BMI 26.0-26.9,adult (ICD-10 - Z68.26) Plan Of Treatment Medication Medication Name Sig Start Date Stop Date Notes Flomax 0.4 MG 2 cap(s) orally once a day; Duration: 90 days Allopurinol 100 MG 1 tab(s) orally 2 times a day Furosemide 20 MG 1 tablet Orally Once a day Bisoprolol Fumarate 10 MG 1 tab(s) orally once a day Synthroid 75 MCG 1 tab(s) Orally once a day Treatment Notes Assessment Notes Stage 3b chronic kidney disease Continue follow-up with nephrology Polycythemia vera Continue follow-up w [facility] Dr. Holder Next Appt Details Follow Up: 6 Months, Reason: Provider Name:Mario Alberto Rodriguez, 07/31/2025 10:15:00 AM, [address] [facility], [address], [place], [place], [id number], Progress Notes * Jonny CODY LDOB: 0 (74 yo M)Acc No.[id number]:01/30/2025 Progress Notes Patient: Jonny SCHWARZ Provider: Mario Alberto Marshall M.D. :1950 A ge:74 Y S ex:Male Date:01/30/2025 Address:[address] [place], [facility] Subjective: * Chief Complaints: * 1 . 6 month check. 2. Needs labs. * HPI: H PI: 74 year old male presents with c/o Patient is here today for?Pt is here today for a 6 month check up. Pt sts he is doing well and has no new concerns at this time. Pt is fasting. D ermatology: He has been following with dermatology and has recently had a melanoma and basal cell removed. H ematology: He continues to follow with Dr. Holder for his polycythemia with minor adjustment in medications. * Medical History: A nxiety disorder, Large [...] times a day as needed , Taking Kionex 15 GM/60ML Suspension 60 mL orally 3 times a week (M,W,F) , Taking Synthroid 75 MCG Tablet 1 [...] Allergies: N .K.D.A. Objective: * Vitals: W t: 167.2, Temp: 97.4, BP: 118/70, HR: 75, O2 Sat: 100% on RA, Nurse: joanna, Ht: 66.50, BMI:26.58. * Examination: C ardiology: General Appearance: N AD. Weight is stable. H EENT: V oice is c hronically hoarse. . C arotid upstroke: n ormal, no bruits. H eart sounds: R RR, normal S1, S2. M urmur, click , gallop: n one. L ungs: c lear, no rales or wheezes. A bdomen: s oft, nontender, positive BS. E xtremities: t race of edema. Assessment: * Assessment: 1. H ypothyroidism - E03.9 (Primary) 2 . S tage 3b chronic kidney disease - N18.32 3 . P olycythemia vera - D45 4 . B enign prostatic hyperplasia with lower urinary tract symptoms - N40.1 5 . P ersonal history of nicotine dependence - Z87.891 6 . H TN (hypertension) - I10 7 .?Hyperuricemia - E79.0 8 . E ncounter for immunization - Z23 9 . B [place] 26.0-26.9,adult - Z68.26 Plan: * Treatment: Value Reference Range T SH 2.80 0.43-5.25 - mU/L * Mario Alberto Marshall 02/03/2025 06:50:47 PM EDT > See phone encounter 2.?Stage 3b chronic kidney disease? Notes: Continue follow-up with nephrology??3.?Polycythemia vera? Notes: Continue follow-up with Dr. Holder??4.?Benign prostatic hyperplasia with lower urinary tract symptoms? Refill Flomax Capsule, 0.4 MG, 2 cap(s), orally, once a day, 90 days, 180 Capsule, Refills 1.? 5.?HTN (hypertension)? Refill Bisoprolol Fumarate Tablet, 10 MG, 1 tab(s), orally, once a day, 90, Refills 1;?Continue Furosemide Tablet, 20 MG, 1 tablet, Orally, Once a day.?LAB: P-Comprehensive Metabolic Panel (CMP) (Collection Date & Time - 01/30/2025 09:30 AM)?GFR 25* Value Reference Range A /G Ratio 2.4 1.1-2.5 - * A lbumin 4.3 3.5-5.3 - g/dL * A lkaline Phosphatase 114 40-129 - IU/L * A LT (SGPT) 6 <5-55 - IU/L * A ST (SGOT) 10 <5-46 - IU/L * B ilirubin, Total 0.5 <0.2-1.2 - mg/dL * B UN 47 H 8-23 - mg/dL * C alcium 8.6 8.6-10.4 - mg/dL * C hloride 103 97-108 - mmol/L * C O2 23 20-32 - mmol/L * C reatinine 2.60 H 0.70-1.30 - mg/dL * G lucose 104 H 65-99 - mg/dL * P otassium 5.3 3.5-5.3 - mmol/L * S odium 138 135-145 - mmol/L * P rotein 6.1 6.0-8.3 - g/dL * e GFR by Creatinine 25 L >59 - mL/min/1.73m2 * Mario Alberto Marshall 02/03/2025 06:50:47 PM EDT > See phone encounter 6.?Hyperuricemia? Refill Allopurinol Tablet, 100 MG, 1 tab(s), orally, 2 times a day, 180, Refills 1.?LAB: P-Uric Acid (Collection Date & Time - 01/30/2025 09:30 AM)?8.6* Value Reference Range U martir Acid 8.6 H 3.4-8.0 - mg/dL * Mario Alberto Marshall 02/03/2025 06:50:47 PM EDT > See phone encounter * Immunizations: Fluzone High Dose (65yr and older) : 0.5 mL (Route: Intramuscular) given by JOANNA Adair on Right Arm (Encounter for immunization) * Procedure Codes: G 2211 Complex e/m visit add on, 1036F TOBACCO NON-USER, G8420 BMI<30 AND >=22 CALC & DOCU, G8950 PREHTN/HTN BP DOC INDCD F/U DOC, 3074F SYST BP LT 130 MM HG, 3078F DIAST BP < 80 MM HG * Follow Up: 6 Months * Images: Billing Information: * Visit Code: 80719 Office Visit, Est Pt., Level 4. * Procedure Codes: G2211 Complex e/m visit add on. 1036F TOBACCO NON-USER. G8420 BMI<30 AND >=22 CALC & DOCU. G8950 PREHTN/HTN BP DOC INDCD F/U DOC. 3074F SYST BP LT 130 MM HG. 3078F DIAST BP < 80 MM HG. * Electronic signature of Mario Alberto Marshall MD on 04/29/2025 at 08:58 AM EST Sign off status: Pending * Provider: Mario Alberto Marshall M.D. Date: 0 01/30/2025 Generated for Antonio bland/Ronel/eTransmitting on: 1 06/30/2024 08:58 AM EST History and Physical Notes * HPI (History of Present Illness) Category Sub-Category Detail Notes Category Not es Dermatology He has been following with dermatology and has recently had a melanoma and basal cell removed. HPI Patient is here toda y for Pt is here today for a 6 month check up. Pt sts he is doing well and has no new concerns at this time. Pt is fasting Hematology He continues to follow with Dr. Holder for his polycythemia with minor adjustment in medications. Examination Category Sub-Category Detail Notes Category Not es Cardiology Lungs: clear, no rales or wheezes HEENT: Voice is chronically hoarse. Heart sounds: RRR, normal S1, S2 Abdomen: soft, nontender, pos itive BS Carotid upstroke: normal, no bruits Extremities: trace of edema Murmur, click , gallop: none General Appearance: NAD. Weight is stabl e
--- OUTSIDE RECORDS SUMMARY | 2025-04-29 11:43 | XMS_ITS | Clinical Summary ---
Author Organization [facility] Address [address] [place] [address] Care Team Providers Care Territory Sales Executive Name Role Phone Samuel [place] MD Primary Care Provider +1- [phone] Allergies No known active allergies Medications allopurinol [...] Encounters Date Type Department Care Team Description 04/29/2025 Telephone [facility] Nephrology, Bone & Mineral Metabolism [address] [facility], [address] [place] [address] Christi Cowan RN from Last 3 Months Immunizations Immunization Administration Dates Next Due Influenza, high-dose, quadrivalent 04/25,04/27/2023,03/07/2022,04/23/20 21 Pneumococcal 20-som Conj Vaccine 10/22/2021 Pneumococcal Polysaccharide PPV23 04/27/2023 Family History Medical History Relation Name Comments Alzheimer's disease Father Hip fracture Father Dementia Mother Diabetes Mother Hypertension Mother Osteoporosis Mother Relation Name Status Comments Father Mother Social History Tobacco Use Types Packs/Day Years Used Date Smoking Tobacco: Former Cigarettes 0 Q uit: 05/13/1984 Passive Smoke Exposure: Past [...] Description 05/02/2025 9:40 AM EST Office Visit [facility] [address] [place] [address] Ben Lozada MD [address] [place] [address] Health Maintenance Due Date Last [...] or (1 - 1-dose 75+ series) 2024 [id number] Vaccine ( - 2024- season) 2025 02/06/2022, 11/18/2021, 03/07/2021, Additional history exists [facility]-Influenza Vaccine (#1) 01/13/202504/25, 04/27/2023, 03/07/2022, Additional history exists [facility]-Depression Screening 05/13/2025 05/13/2024 [facility]-Pneumococcal Vaccine: 50+ Years Completed 04/27/2023, 10/22/2021 [facility]-Obesity Intervention Completed 025, 08/16/2024, 05/13/2024 HPV Vaccines (No Doses Required) Completed [facility]-HIB Vaccines Aged Out No longer e [...] this topic Insurance [employer] MEDICARE Care Teams Territory Sales Executive Relationship Specialty Start Date End Date Samuel [place] MD [address] [place] [address] PCP - General 09/25/20
--- OUTSIDE RECORDS SUMMARY | 2025-04-29 11:43 | XMS_ITS | Patient Health Record ---
[facility] Address [address] [facility] [address] [place] [id number] Care Team Providers Care Swamper Name Role Phone Rolando Mario Alberto Juanjo Primary Care Provider [phone] Allergies No Known Allergies Results Component Value Reference Range Notes P-Comprehensive Metabolic Pa kelton (CMP) Reviewed date:02/03/2025 06:50:58 PM Interpretation:GFR 25 Performing Lab: Notes/Report: Test performed by [email or web address] [address] [place], [place] [address] [employer] [place] , [address], [place] [address] Calin Brothers MD, [employer] CLIA: [id number] Sodium 138 135-145 mmol/L Potassium 5.3 3.5-5.3 [...] Interpretation:2,80 Performing Lab: Notes/Report: Test performed by [email or web address] [address] [place], [place] [address] [place] , [address], [place] [address] Calin Brothers MD, B[employer] CLIA: [id number] TSH 2.80 0.43-5.25 mU/L P-Uric Acid Reviewed date:02/03/2025 06:50:58 PM Interpretation:8.6 Performing Lab: Notes/Report: Test performed by [facility] [address] , [address], [place] [address] Calin Brothers MD, Bead Work[employer] CLIA: [id number] Uric Acid 8.6 3.4-8.0 mg/dL CT Scan : Chest, low dose Reviewed date:10/29/2024 08:47:06 AM Interpretation:no suspicious lesions; known splenomegaly Performing Lab: Notes/Report: no suspicious lesions; known splenomegaly Ultrasound : Aorta Reviewed date:09/18/2024 12:02:27 AM Interpretation:negative, incidental splenomegaly Performing Lab: Notes/Report: negative, incidental splenomegaly P-Potassium Reviewed date:05/14/2024 09:34:43 AM Interpretation:5.7 Performing Lab: Notes/Report: Test performed by [facility] [address] , [address], [place] [address] Calin Brothers MD, B[employer] Work[employer] CLIA: [id number] Potassium 5.7 3.5-5.3 mmol/L Medications Medication SIG [...] (65yr and older) IM Intramuscular 01/30/2025 Administered COVID 19 Moderna Unknown 07/09/2020 Administered COVID 19 Moderna Unknown 07/31/2020 Administered COVID 19 Moderna Unknown 03/07/2021 Administered COVID 19 Moderna Unknown 11/18/2021 Administered Problems Problem Type SNOMED Code ICD Code Onset Dates Problem Status W/U Status Risk Notes Problem Hypertension (14820174) HTN (hypertension) (I10) Active confirmed Problem Cardiac dysrhythmia (081281605) Cardiac dysrhythmia (I49.9) Active confirmed Problem Mixed anxiety and depressive disorder (019142086) Depression with anxiety (F41.8) Active confirmed Problem Dysphagia (80421721) Dysphagia (R13.10) Active confirmed Problem Polycythemia vera (341557963) Polycythemia vera (D45) Active confirmed Problem Nicotine dependence (72550660) Personal history of nicotine dependence (Z87.891) Active confirmed Problem Gastroesophageal reflux disease without esophagitis (274939500) Gastroesophageal reflux disease without esophagitis (K21.9) Active confirmed Problem Hypothyroidism (60535782) Hypothyroidism (E03.9) Active confirmed Problem Irritable bowel syndrome (95294053) Irritable bowel syndrome (K58.9) Active confirmed Problem Thrombocytosis (0498159) Thrombocytosis (D47.3) Active confirmed Problem Lower urinary tract symptoms due to benign prostatic hypertrophy (11624571880457) Benign prostatic hyperplasia with lower urinary tract symptoms (N40.1) Active confirmed Problem Chronic kidney disease stage 3B (disorder) (871201315) Stage 3b chronic kidney disease (N18.32) Active confirmed Vital Signs Heart Rate 75 /min 01/30/2025 Blood pressure diastolic 70 mm Hg 01/30/2025 Height 66.50 in 01/30/2025 Blood pressure systolic 118 mm Hg 01/30/2025 Weight 167.2 lbs 01/30/2025 BMI 26.58 kg/m2 01/30/2025 Encounters Encounter Location Date Provider Diagnosis Unique [address] [facility] 36 [facility] [address] [place] [id number] 05/13/2024 R Juanjo Marshall Hyperkalemia E87.5 [facility] [address] [facility] 36 [facility] [address] [place] [id number] 07/25/2024 R Juanjo Marshall Adult general medica l examination Z00.00 ; Hypothyroidism E03.9 ; Stage 3b chronic kidney disease N18.32 ; Polycythemia vera D45 ; Benign prostatic hyperplasia with lower urinary tract symptoms N40.1 ; Personal history of nicotine dependence Z87.891 ; HTN (hypertension) I10 ; Hyperuricemia E79.0 and BMI 26.0-26.9,adult Z68.26 [facility] [address] [facility] [address] [place], [place] [id number] 01/30/2025 R Juanjo Marshall Hypothyroidism E03.9 ; Stage 3b chronic kidney disease N18.32 ; Polycythemia vera D45 ; Benign prostatic hyperplasia with lower urinary tract symptoms N40.1 ; Personal history of nicotine dependence Z87.891 ; HTN (hypertension) I10 ; Hyperuricemia E79.0 ; Encounter for immunization Z23 and BMI 26.0-26.9,adult Z68.26 [facility] [address] [facility] 36 [facility] [address] [place] [id number] 05/14/2024 R Juanjo Marshall [facility] [address] [place] [facility] 36 [facility] [address] [place] [id number] 09/04/2024 R Juanjo Coreasfleet [facility] [address] [place] [facility] 36 [facility] [address] [place] [id number] 09/18/2024 R Juanjo Marshall [facility] [address] [facility] 36 [facility] [address] [place] [id number] 02/03/2025 R Juanjo Marshall Assessments Encounter Date Diagnosis (ICD Code) Assessment Notes Treatment Notes Treatment Clinical Notes Section Notes 07/25/2024 Hypothyroidism (ICD-10 - E03.9) 07/25/2024 Adult [...] with nephrology 05/13/2024 Hyperkalemia (ICD-10 - E87.5) 07/25/2024 Polycythemia vera (ICD-10 - D45) Continue follow-up with Dr. Holder 01/30/2025 Benign prostatic hyperplasia with lower urinary tract symptoms (ICD-10 - N40.1) 01/30/2025 Personal history of nicotine dependence (ICD-10 - Z87.891) 07/25/2024 Benign prostatic hyperplasia with lower urinary tract symptoms (ICD-10 - N40.1) 01/30/2025 HTN (hypertension) (ICD-10 - I10) 07/25/2024 Personal history of nicotine dependence (ICD-10 - Z87.891) 07/25/2024 HTN (hypertension) (ICD-10 - I10) 01/30/2025 Hyperuricemia (ICD-10 - E79.0) 01/30/2025 Encounter for immunization (ICD-10 - Z23) 07/25/2024 Hyperuricemia (ICD-10 - E79.0) 07/25/2024 BMI 26.0-26.9,adult (ICD-10 - Z68.26) 01/30/2025 BMI 26.0-26.9,adult (ICD-10 - Z68.26) Plan Of Treatment Pending Test Test Name Order Date Cologuard 10/27/2022 CT SCAN : CHEST, LUNG CANCER SCREENING L OW DOSE 04/25/2024 Next Appt Details Provider Name:Mario Alberto Romero et, 07/31/2025 10:15:00 AM, [address], [address], [place], [place], [id number], Insurance Providers Payer Name Payer Address Payer Phone Subscriber Number Group Number Insured Name Patient Relationship to Insured Coverage Start Date Coverage End Date [employer] (MEDICAR E) [address] [address] [place] [address] [id number] Jonny Spivey Self - patient is the [...]
--- OUTSIDE RECORDS SUMMARY | 2025-04-29 11:43 | XMS_ITS | Referral Summary ---
Author Organization [employer] ([place], [place], [place], [place], [place]) Address [address] [place] [address] Care Team Providers Care Manager Camp Name Role Phone Samuel Marshall MD Primary Care Provider [phone] Allergies No known active allergies Medications ARIPiprazole (ABILIFY) 5 MG tablet SMARTSI Tablet(s) By Mouth Every Evening 12/28/2022 Active bisoprolol (ZEBETA) 10 MG tablet Take 1 tablet (10 mg total) by mouth daily. 12/28/2022 Active hydroxyurea (DROXIA) 500 mg capsule Take 1 capsule (500 mg total) by mouth 3 (three) times a week MON/WED/FRI. 12/01/2022 Active levothyroxine (SYNTHROID, LEVOTHROID) 50 MCG tablet Take 1 tablet (50 mcg total) by mouth daily. 12/24/2022 Active tamsulosin (FLOMAX) 0.4 mg Cap 24 hr capsule Take 2 capsules (0.8 mg total) by mouth daily. 12/28/2022 Active venlafaxine (EFFEXOR-XR) 150 MG 24 hr capsule Take 1 capsule (150 mg total) by mouth daily. 12/29/2022 Active aspirin 81 MG chewable tablet Take 1 tablet (81 mg total) by mouth daily. Active venlafaxine (EFFEXOR) 75 MG tablet Take 1 tablet (75 mg total) by mouth daily. Active furosemide (LASIX) 20 MG tablet Take 1 tablet (20 mg total) by mouth daily. 04/11/2023 Active cephalexin (KEFLEX) 500 MG capsule Take 1 capsule (500 mg total) by mouth 2 (two) times daily. 04/11/2023 Active dicyclomine (BENTYL) 10 MG capsule Take 1 capsule (10 mg total) by mouth 3 (three) times daily. 04/11/2023 Active Active Problems Problem Noted Date Diagnosed Date Gout 02/07/2023 Anxiety 02/07/2023 Abnormal EKG 02/07/2023 HTN (hypertension) 01/18/2023 Dysrhythmias 01/18/2023 Hypothyroidism 01/18/2023 Gastroesophageal reflux disease 01/18/2023 Polycythemia 01/18/2023 Social History Tobacco Use Types Packs/Day Years Used Date Smoking Tobacco: Former Cigarettes 2 40 1 - 02/27/2010 Smokeless Tobacco: Former Tobacco Cessation:Counseling Given: Not Answered Alcohol Use Standard Drinks/Week Comments Never 0 (1 standard drink = 0.6 oz pur e alcohol) CAFFEINE USE Food Insecurity Answer Date Recorded Food run out past 12 months Not on file 05/15 Food did not last past 12 months Not on file 05/26/2023 Employment Answer Date Recorded Help finding and keeping a job Not on file 0 05/26/2023 Family and Community Support Answer Kyaw e Recorded Help with Day to Day Activities Not on file 05/26/2023 Feeling Lonely or Isolated Not on file 05/26 Educational Attainment Answer Date Brendon rded Speak language other than Afghan at home Not on file 05/26/2023 Want help with school or training Not on file 05/26/2023 Substance Use Answer Date Recorded Used prescription meds for non-medical reasons N ot on file 05/26/2023 Used illegal drugs past 12 months Not on file 05/26/2023 Sex and Gender Information Value Date Recorded Sex Assigned at Not on file Legal Sex Male 8:56 AM CDT Gender Identity Not on file Sexual Orientation Not on file Last Filed Vital Signs Vital Sign Reading Time Taken Comments Blood Pressure 128/80 04/12/2023 2:04 PM EST Pulse 94 04/12/2023 2:04 PM EST Temperature 36.2 C (97.1 F) 01/18/2023 1:25 PM EDT Respiratory Rate 20 04/12/2023 2:04 PM EST Oxygen Saturation 97% 04/12/2023 2:04 PM EST Inhaled Oxygen Concentration - - Weight 82.1 kg (181 lb) 04/12/2023 2:04 PM EST Height 170.2 cm (5' 7 ) 04/12/2023 2:04 PM EST Body Mass Index 28.35 04/12/2023 2:04 PM EST Plan of Treatment Not on file Procedures Procedure Name Priority Date/Time Associated Diagnosis Comments CT LUNG SCREENING ANNUAL FOLLOWUP Routine 11/16/2022 3:19 PM EDT History of tobacco use from Last 3 Months or Most Recently Relevant to Health Maintenance Results * CT LUNG SCREENING ANNUAL FOLLOWUP (11/16/2022 3:19 PM EDT) Anatomical Region Laterality Modality Chest, Lung Computed Tomogra phy (CT) 11/16/2022 3:41 PM EDT Impressions 11/16/2022 3:45 PM EDT Lung-RADS 1: Negative: No nodules, or definitely benign nodules (with complete, central or popcorn calcifications or fat in a benign pattern). Continue annual screening with low-dose chest CT in 12 months. Probability of malignancy: <1%; . Images reviewed, interpreted, and dictated by Dr. Mamadou Sellres. Transcribed by Candace Isaacs PA-C. Narrative 11/16/2022 3:[address] SCAN OF THE CHEST 11/16/2022 3:09 PM HISTORY: Screening CT. Former smoker who quit 1 years prior with a 30 pack-year smoking history. COMPARISON: None. PROCEDURE: Axial images were obtained from the lung apex to the mid abdomen by computed tomography. Low-dose protocol was utilized. The CTDI vol is 1.3 mGy. The DLP is 50 mGy*cm. This study was performed with techniques to keep radiation doses as low as reasonably achievable, (ALARA). Individualized dose reduction techniques using automated exposure control or adjustment of mA and/or kV according to the patient size were employed. FINDINGS: CHEST: There is no axillary adenopathy. There is no hilar or mediastinal adenopathy. There is an aberrant right subclavian artery. Heart size is normal. There is no pericardial or pleural effusion. There is scarring within the lingula Limited images of the upper abdomen are unremarkable. No suspicious infiltrate or nodule identified. us Samuel Marshall MD IMG CT ORDERABLES Final Re sult from Last 3 Months or Most Recently Relevant to Health Maintenance Insurance [facility] MEDICARE HMO Advance Directives For more information, please contact: [phone] * Full Code (Latest Code Status on File) Date Activated Date Inactivated Comments 01/18/2023 11:32 AM 01/18/2023 3:03 PM -Attempt Resu scitation if person has no pulse and is not breathing. -If no pulse or not breathing attempt CPR/CODE. -Call Rapid Response if patient is in distress. Care Teams Manager Camp Relationship Specialty Start Date End Date Samuel Marshall MD [address] [place] [phone] PCP - General Family Medicine 11/16/22
--- OUTSIDE RECORDS SUMMARY | 2025-04-29 11:43 | XMS_ITS | Clinical Summary ---
Author Organization [employer] ([place], [place], [place], [place], [place]) Address [address] [place] [address] Care Team Providers Care Fur Sorter Name Role Phone Samuel Marshall MD Primary Care Provider [phone]- [phone] Allergies No known active allergies Medications ARIPiprazole [...] 01/18/2023 Gastroesophageal reflux disease 01/18/2023 Polycythemia 01/18/2023 Family History Medical History Relation Name Comments Alzheimer's disease Father Diabetes Mother Heart disease Mother Malig Hypertension Neg Hx Relation Name Status Comments Father Mother Social [...] Date Brendon rded Speak language other than Greek at home Not on file 05/26/2023 Want [...] 04/12/2023 2:04 PM EST Plan of Treatment Health Maintenance Due Date Last Done Comments CT Colonography 1949 Colonoscopy 1950 Colorectal Cancer Screening 1949 FOBT/FIT 1949 Fit-DNA (Cologuard) 1950 Sigmoidoscopy 1949 Depression Screening (12+) 1961 Hepatitis C Screening 09/13/1967 DTAP/TDAP/TD VACCINES (1 - Tdap) 1968 Shingles Vaccine (Zoster) (1 of 2) 09/13/1999 Medicare Initial AWV [id number] 06/16/2023 Lung Cancer Screening 11/16/2023 11/16/2022 Tobacco Cessation Counseling and Screening (12+) 04/12/2024 04/12/2023 Falls Risk Screening 05/15/2024 Respiratory Syncytial Virus (RSV) Adult or (1 - 1-dose 75+ series) 2024 COVID-19 VACCINE (6 - 2024-2 6 season) 2025 02/06/2022, 11/18/2021, 03/07/2021, Additional history exists Influenza Vaccine (#1) 2025 03/07/2022, 2020 Pneumococcal 50+ years Completed 10/22/2021 Procedures Procedure Name Priority Date/Time Associated Diagnosis [...] reviewed, interpreted, and dictated by Dr. Mamadou Sellers. Transcribed by Candace Isaacs PA-C. Narrative 11/16/2022 [...] unremarkable. No suspicious infiltrate or nodule identified. Samuel Marshall MD IMG CT ORDERABLES Final Re sult from Last 3 Months or Most Recently Relevant to Health Maintenance Insurance [employer] MEDICARE HMO Advance Directives For more information, please contact: [phone] * Full Code (Latest Code Status on File) Date Activated Date Inactivated Comments 01/18/2023 11:32 AM 01/18/2023 3:03 PM -Attempt Resu scitation if person has no pulse and is not breathing. -If no pulse or not breathing attempt CPR/CODE. -Call Rapid Response if patient is in distress. Care Teams Fur Sorter Relationship Specialty Start Date End Date Samuel Marshall MD [address] [place] [phone] PCP - General Family Medicine 11/16/22
--- OUTSIDE RECORDS SUMMARY | 2025-04-29 11:43 | XMS_ITS | Encounter Summary ---
Author Organization Healthcare Address [address] [place] [address] Care Team Providers Care Manager Developmental Name Role Phone Samuel Marshall MD Primary Care Provider [phone]- [phone] Encounter Details Date Type Department Care Team ([facility] Contact Info) Description 04/29/2025 Telephone [facility] [address] [facility], [address] [place] [address] Christi Cowan RN None None Social History Tobacco Use Types Packs/Day Years [...] Upcoming Encounters Date Type Department Care Team ([facility] Contact Info) Description 05/02/2025 9:40 AM EST [facility] [address] [place] [address] Ben Lozada MD [address] [place] [phone] documented as of this encounter Visit Diagnoses Not on filedocumented in this encounter Additional Health Concerns Assessment Noted Time A fall risk assessment has been complete d for the patient 05/13/2024 11:01 AM EST A Body Mass Index follow-up plan has been documented for the patient 12/27/2024 9:27 AM EDT documented as of this encounter Care Teams Manager Developmental Relationship Specialty Start Date End Date Samuel Marshall MD [address] [place] [place] [address] PCP - General 09/25/20 documented as of this encounter
[2025-04-29 12:01] LABS: Hematocrit 33.3 % (42.0-52.0); Hemoglobin 9.8 g/dL (14.1-18.0); Mean Corpuscular HGB Conc 29.4 g/dL (31.8-35.4); Mean Corpuscular Hemoglobin 28.0 pg (27.0-31.2); Mean Corpuscular Volume 95.1 fl (80-94); Nucleated Red Blood Cells % 0.7 %; Platelet Count 555 K/mm3 (142-424); Red Blood Count 3.50 M/mm3 (4.60-6.20); Red Cell Distribution Width-SD 63.0 fL; White Blood Count 12.4 K/mm3 (4.8-10.8)
[2025-04-29 12:22] LABS: Albumin Level 3.8 g/dl (3.5-5.0); Anion Gap 12.1 mEq/L (5-15); Blood Urea Nitrogen 35 mg/dl (9-20); Calcium 8.1 mg/dl (8.4-10.2); Carbon Dioxide 18 mmol/L (22.0-30.0); Chloride 113 mmol/L (98-107); Creatinine,Serum 2.40 mg/dl (0.66-1.25); Estimated Glomerular Filt Rate 27 ml/min (>60); GFR (African American) 32 ML/MIN (>60); Glucose 122 mg/dl (74-100); Phosphorous 4.6 mg/dl (2.5-4.5); Sodium 137 mmol/L (136-145)
[2025-04-29 12:41] LABS: 25-OH Vitamin D, Total 44.5 ng/mL (30-100)
[2025-04-29 13:19] LABS: Potassium 6.1 mmoL/L (3.5-5.1)
== END 2025-04-29 23:59 | disposition home or self-care (01) ==
LOC: LAB 11:24
PROVIDERS: PCP Family Medicine; Visit Provider Student in an Organized Health Care Education/Training Program
DX: N18.32 Chronic kidney disease, stage 3b (principal); E87.70 Fluid overload, unspecified
CPT/HCPCS: 36415; 80069; 82306; 83970; 85027

== ENCOUNTER 2025-05-12 11:50 | Outpatient (CLI) | payer MEDICARE, SELFPAY ==
--- OUTSIDE RECORDS SUMMARY | 2024-01-25 05:15 | XMS_ITS ---
Author Organization [facility] Address [address] [facility] [address] [facility] [address] [place] [id number] Care Team Providers Care Director Of Rehabilitation And Wellness Name Role Phone Mario Alberto Marshall Primary Care Provider Allergies No Known Allergies Results Component Value Reference Range Notes P-Basic Metabolic Panel (BMP ) Reviewed date:01/28/2024 06:51:01 PM Interpretation:K 6.0, BUN 25, CO2 21, Creat 1.72, eGFR 41 Performing Lab: Notes/Report: CLIA: [id number] Calin Brothers MD, Head Of Business Development [address] [place] [address] , [place] [address] Test performed by [facility] Sodium 139 135-145 mmol/L Potassium 6.0 3.5-5.3 mmol/L Chloride 105 97-108 mmol/L CO2 21 22-32 mmol/L Glucose 83 65-99 mg/dL BUN 25 8-23 mg/dL Creatinine 1.72 0.70-1.30 mg/dL Calcium 8.6 8.6-10.4 mg/dL eGFR by Creatinine 41 >59 mL/min/1.73m2 P-TSH Reviewed date:01/28/2024 06:51:01 PM Interpretation:4.28 Performing Lab: Notes/Report: Test performed by [facility] [address] [place] [address] , [address], [place] [address] Calin Brothers MD, Head Of Business Development CLIA: [id number] TSH 4.28 0.43-5.25 mU/L P-Uric Acid Reviewed date:01/28/2024 06:51:01 PM Interpretation:6.6 Performing Lab: Notes/Report: Test performed by [facility] [address] [place] [address] [address], [place] [address] Calin Brothers MD, Head Of Business Development CLIA: [id number] Uric Acid 6.6 3.4-8.0 mg/dL REASON FOR [...] 01/25/2024 Encounters Encounter Location Date Provider Diagnosis [facility] [facility] [facility] [address] [id number] 01/25/2024 Mario Alberto Marshall Peripheral edema R60 [...] [address], [place], [place], [id number], Progress Notes * Jonny CODY LDOB: 0 (74 yo M)Acc No.[id number]:01/25/2024 Progress Notes Patient: Mario Alberto ANGIETY Jonny Hanley Provider: Mario Alberto Marshall M.D. :1950 A ge:73 Y S ex:Male Date:01/25/2024 Address:[facility] [address], Mary pt [address], [facility] Subjective: * Chief Complaints: * 1 . [...] * Images: Billing Information: * Visit Code: 47765 Office Visit, Est Pt., Level 4. * Procedure Codes: * Electronic signature of Mario Alberto Marshall MD on 05/12/2025 at 11:52 AM EST Sign off status: Pending * Provider: Mario Alberto Marshall M.D. Date: 0 01/25/2024 Generated for Antonio bland/Ronel/eTvanesaitting on: 1 11:52 AM EST History and Physical Notes * [...]
--- OUTSIDE RECORDS SUMMARY | 2024-02-05 05:30 | XMS_ITS ---
Author Organization [facility] Address [address] [facility] 36 [facility] [address] [place] [id number] Care Team Providers Care Senior Information Security Architect Name Role Phone Mario Alberto Marshall Primary Care Provider [phone] Results Component Value Reference Range Notes P-Basic Metabolic Panel (BMP ) Reviewed date:02/08/2024 08:39:05 AM Interpretation:gluc 122, bun 31, Cr 2.01, Ca 8.5, gfr 34 Performing Lab: Notes/Report: Test performed by [facility], [address] , [address], [place] [address] Calin Brothers MD, Milk House Worker CLIA: [id number] Sodium 140 135-145 mmol/L Potassium 5.3 3.5-5.3 mmol/L Chloride 104 97-108 mmol/L CO2 28 22-32 mmol/L Glucose 122 65-99 mg/dL BUN 31 8-23 mg/dL Creatinine 2.01 0.70-1.30 mg/dL Calcium 8.5 8.6-10.4 mg/dL eGFR by Creatinine 34 >59 mL/min/1.73m2 REASON FOR VISIT blood work Medications Medication SIG (Take, Route, Frequency, Duration) Notes Start Date End Date Status Furosemide 20 MG 1 tablet Orally Once a day Active Bisoprolol Fumarate 10 MG 1 tab(s) orall y once a day Active Flomax 0.4 MG 2 cap(s) orally once a day; Duration: 90 days Active Allopurinol 100 MG 1 tab(s) orally 2 ti mes a day Active Synthroid 75 MCG 1 tab(s) Orally once a day Active Hydroxyurea 500 MG as directed orally o nce a day Active Loperamide HCl 2 MG 1 cap(s) Orally four times a day as needed 07/28/2023 Active Venlafaxine HCl 75 MG 1 tab orally daily Active Venlafaxine HCl 150 MG 1 TAB DAILY Active ARIPiprazole 5 MG 1 tab(s) orally once a day Active Aspirin Adult Low Dose 81 MG 1 tab(s) orally once a day; Duration: 30 day(s) Active Encounters Encounter Location Date Provider Diagnosis Unique [address] [place], [place] [id number] 02/05/2024 Mario Alberto Marshall HTN (hypertension) I 10 ; Stage 3b chronic kidney disease N18.32 and Hyperkalemia E87.5 Assessments Encounter Date Diagnosis (ICD Code) Assessment Notes Treatment Notes Treatment Clinical Notes Section Notes 02/05/2024 HTN (hypertension) (ICD-10 - I10) 02/05/2024 Stage 3b chronic kidney disease (ICD-10 - N18.32) 02/05/2024 Hyperkalemia (ICD-10 - E87.5) Plan Of Treatment Next Appt Details Follow Up: via phone to repo rt test results, Reason: Provider Name:Mario Alberto Rodriguez, 07/31/2025 10:15:00 AM, [address], [address], [place], [place], [id number], Progress Notes * Jonny CODY LDOB: 0 (74 yo M)Acc No.[id number]:02/05/2024 Patient: Jonny SCHWARZ Provider: Mario Alberto Marshall M.D. :1950 A ge:73 Y S ex:Male Date:02/05/2024 Address:[facility] [address], [id number] Subjective: * Chief Complaints: * 1 . Blood work. * Medical History: * Medications: T aking Aspirin Adult Low [...] times a day as needed , Taking Synthroid 75 MCG Tablet 1 tab(s) Orally once a day , Taking Allopurinol 100 MG Tablet 1 tab(s) orally 2 times a day , Taking Flomax 0.4 MG Capsule 2 cap(s) orally once a day , Taking Bisoprolol Fumarate 10 MG Tablet 1 tab(s) orally once a day , Taking Furosemide 20 MG Tablet 1 tablet Orally Once a day , Medication List reviewed and reconciled with the patient Objective: * Vitals: Assessment: * Assessment: 1. H TN (hypertension) - I10 (Primary) 2 . S tage 3b chronic kidney disease - N18.32 3 . H yperkalemia - E87.5 Plan: * Treatment: Value Reference Range B UN 31 H 8-23 - mg/dL * C alcium 8.5 L 8.6-10.4 - mg/dL * C hloride 104 97-108 - mmol/L * C O2 28 22-32 - mmol/L * C reatinine 2.01 H 0.70-1.30 - mg/dL * G lucose 122 H 65-99 - mg/dL * P otassium 5.3 3.5-5.3 - mmol/L * S odium 140 135-145 - mmol/L * e GFR by Creatinine 34 L >59 - mL/min/1.73m2 * Mario Alberto Marshall 02/08/2024 8 :38:57 AM > See phone encounter * Follow Up: v ia phone to report test results * Images: Billing Information: * Visit Code: * Procedure Codes: * Electronic signature of Mario Alberto Marshall MD on 05/12/2025 at 11:54 AM EST Sign off status: Pending * Provider: Mario Alberto Marshall M.D. Date: 0 02/05/2024 Generated for Antonio bland/Ronel/Payam on: 1 11:54 AM EST
--- OUTSIDE RECORDS SUMMARY | 2024-04-25 05:00 | XMS_ITS ---
Author Organization [facility] Address 1210 [facility] 36 [facility] [address] [place] [id number] Care Team Providers Care Squeak Rattle And Leak Repairer Name Role Phone Mario Alberto Marshall Primary Care Provider [phone] Allergies No Known Allergies Results Component Value Reference Range Notes P-Comprehensive Metabolic Pa kelton (CMP) Reviewed date:04/26/2024 12:10:09 PM Interpretation: Performing Lab: Notes/Report: CLIA: [id number] Calin Brothers MD, Material Requisitioner [address] [place] [address] , [address], [place] [address] Test performed by [facility] Sodium 137 135-145 mmol/L Potassium 6.8 3.5-5.3 [...] Interpretation: Performing Lab: Notes/Report: Test performed by [facility] [address] [place] [address] , [address], [place] [address] Calin Brothers MD, Material Requisitioner CLIA: [id number] PSA 1.78 <4.00 ng/mL Please note this is an ultrasensitive PSA assay with a lower limit of detection of 0.014 ng/mL. This test is performed by the [employer]ox[employer] ECLIA methodology. Values obtained with different assay methods or kits cannot be directly compared. P-TSH Reviewed date:04/26/2024 12:10:09 PM Interpretation: Performing Lab: Notes/Report: Test performed by [facility] [address] [place] [address] , [address], [place] [address] Calin Brothers MD, Material Requisitioner CLIA: [id number] TSH 4.10 0.43-5.25 mU/L P-Uric Acid Reviewed date:04/26/2024 12:10:09 PM Interpretation: Performing Lab: Notes/Report: Test performed by [facility] [address] [place] [address] , [address], [place] [address] Calin Brothers MD, Material Requisitioner CLIA: [id number] Uric Acid 7.7 3.4-8.0 mg/dL Reason For Referral Reason lesion in nose suspi cious for basal cell cancer. 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 Referred Provider [...] 04/25/2024 Encounters Encounter Location Date Provider Diagnosis [facility] 1210 [facility] [address] [phone] 04/25/2024 Mario Alberto Marshall Hypothyroidism E03.9 ; [...] for basal cell cancer. Prefers appt in [place], . ENT Next Appt Details Follow Up: 3 Months, Reason: Provider Name:Mario Alberto Rodriguez, 07/31/2025 10:15:00 AM, [address], [address] , [place], [place], [id number], Progress Notes * Jonny CODY LDOB: 0 (74 yo M)Acc No.[id number]:04/25/2024 Progress Notes Patient: Jonny SCHWARZ Provider: Mario Alberto Marshall M.D. :1950 A ge:73 Y S ex:Male Date:04/25/2024 Address:[address] [place] [address], [address] , [place] [id number] Subjective: * Chief Complaints: * 1 . [...] AM > no auth required; CPT code [id number],Marquita 04/25/2024 10:51:22 AM > faxed to [facility] in [place] 5.?HTN (hypertension)? Refill Bisoprolol Fumarate Tablet, 10 [...] for basal cell cancer. Prefers appt in [place] 7.?Hyperuricemia? Refill Allopurinol Tablet, 100 MG, 1 tab(s), orally, 2 times a day, 180, Refills 1.?? * Immunizations: Fluzone High Dose (65yr and older) : 0.5 mL (Route: Intramuscular) given by Lis White on Right Deltoid (Encounter for immunization) * Procedure Codes: G 2211 Complex e/m visit add on * Follow Up: 3 Months * Images: Billing Information: * Visit Code: 63996 Office Visit, Est Pt., Level 4. * Procedure Codes: G2211 Complex e/m visit add on. * Electronic signature of Mario Alberto Marshall MD on 05/12/2025 at 11:52 AM EST Sign off status: Pending * Provider: Mario Alberto Marshall M.D. Date: 06/26/2023 Generated for Antonio bland/Ronel/Dulceitting on: 11:52 AM EST History and Physical Notes [...] for basal cell cancer. Prefers appt in [place]
--- OUTSIDE RECORDS SUMMARY | 2024-05-13 07:30 | XMS_ITS ---
Author Organization [facility] Address 1210 [facility] 36 [facility] [address] [place] [phone] Care Team Providers Care Die Designer Name Role Phone Mario Alberto Marshall Primary Care Provider Results Component Value Reference Range Notes P-Potassium Reviewed date:05/14/2024 09:34:43 AM Interpretation:5.7 Performing Lab: Notes/Report: Test performed by [facility], [employer] [address] [place] [address] , [address], [place] [address] Calin Brothers MD, Banquet Attendant CLIA: [id number] Potassium 5.7 3.5-5.3 mmol/L REASON FOR VISIT lab draw Encounters Encounter Location Date Provider Diagnosis [facility] [address] [facility] [address] [place] [phone] 05/13/2024 Mario Alberto Marshall Hyperkalemia E87.5 Assessments Encounter Date Diagnosis (ICD Code) Assessment Notes Treatment Notes Treatment Clinical Notes Section Notes 05/13/2024 Hyperkalemia (ICD-10 - E87.5) Plan Of Treatment Next Appt Details Provider Name:Mario Alberto Rodriguez, 07/31/2025 10:15:00 AM, [address] [facility], [address], [place], [id number], Progress Notes * Jonny CODY LDOB: 0 (74 yo M)Acc No.[id number]:05/13/2024 Patient: Jonny SCHWARZ Provider: Mario Alberto Marshall M.D. :1950 A ge:73 Y S ex:Male Date:05/13/2024 Address:[address], [facility], [id number] Subjective: * Chief Complaints: * 1 . Lab draw. * Medical History: Objective: * Vitals: Assessment: * Assessment: 1. H yperkalemia - E87.5 Plan: * Treatment: Value Reference Range P otassium 5.7 H 3.5-5.3 - mmol/L * Ramila Chandler 05/14/2024 9:34 :39 AM >See phone encounter * Images: Billing Information: * Visit Code: * Procedure Codes: * Electronic signature of Mario Alberto Marshall MD on 05/12/2025 at 11:54 AM EST Sign off status: Pending * Provider: Mario Alberto Marshall M.D. Date: Generated for Antonio bland/Ronel/Payam on: 11:54 AM EST
--- OUTSIDE RECORDS SUMMARY | 2024-07-25 05:00 | XMS_ITS ---
Author Organization [facility] Address [facility] [facility] [address] [place] [id number] Care Team Providers Care Behavioral Health Case Manager Name Role Phone Mario Alberto Marshall Primary [...] Orally once a day Active Vital Signs Blood pressure systolic 124 mm Hg 07/26/19 25 Blood pressure diastolic 60 mm Hg 025 Heart Rate 48 /min 07/25/2024 Height 66.50 in 07/25/2024 Weight 168.4 lbs 07/25/2024 BMI 26.77 kg/m2 07/25/2024 Encounters Encounter Location Date Provider Diagnosis Unique [address] [facility] [address] [place] [id number] 07/25/2024 Mario Alberto Marshall Adult general medica [...] [address], [address], [place], [place], [id number], Progress Notes * Jonny CODY LDOB: 0 (74 yo M)Acc No.[id number]:07/25/2024 Annual Wellness Visit Patient: Jonny SCHWARZ Dayan Provider: Mario Alberto Marshall M.D. :1950 A ge:73 Y S ex:Male Date:07/25/2024 Address:[address] [place] [address], A pt B, [facility] Subjective: * Chief Complaints: * 1 . 3 month check and AWV. * HPI: H PI: 73 year old male presents with c/o Patient is here today for?Pt is here today for a 3 m [facility] check up and Medicare Annual Wellness Visit. [...] yperuricemia - E79.0 ? 9 . B [place] 26.0-26.9,adult - Z68.26 Plan: * Treatment: 2. [...] AM > no auth required; CPT code 73111; faxed to [facility] Radha Lee 07/25/2024 11:13:03 AM > [...] * Images: Billing Information: * Visit Code: 56228 Office Visit, Est Pt., Level 3. Modifiers: [...] Mario Alberto Marshall MD on 05/12/2025 at 11:53 AM EST Sign off status: Pending * Provider: Mario Alberto Marshall M.D. Date: 0 07/25/2024 Generated for Antonio bland/Ronel/Dulceitting on: 1 11:53 AM EST History and Physical Notes * [...]
--- OUTSIDE RECORDS SUMMARY | 2025-01-30 05:15 | XMS_ITS ---
Author Organization [facility] Address [address] [facility] 36 [facility] [address] [place] [id number] Care Team Providers Care Building Mechanic Name Role Phone Mario Alberto Marshall Primary Care Provider Allergies No Known Allergies Results Component Value Reference Range Notes P-Comprehensive Metabolic Pa kelton (CMP) Reviewed date:02/03/2025 06:50:58 PM Interpretation:GFR 25 Performing Lab: Notes/Report: CLIA: [id number] Calin Brothers MD, Leather Seasoner [address] [place] [address] , [place] [address] Test performed by [employer] [facility] Sodium 138 135-145 mmol/L Potassium 5.3 3.5-5.3 [...] Interpretation:2,80 Performing Lab: Notes/Report: Test performed by [facility] [address] [place] [address] , [place] [address] Calin Brothers MD, Leather Seasoner CLIA: [id number] TSH 2.80 0.43-5.25 mU/L P-Uric Acid Reviewed date:02/03/2025 06:50:58 PM Interpretation:8.6 Performing Lab: Notes/Report: Test performed by [facility] [employer] [facility] [address] , [address], [place] [address] Calin Brothers MD, Leather Seasoner CLIA: [id number] Uric Acid 8.6 3.4-8.0 mg/dL REASON FOR [...] older) IM Intramuscular 01/30/2025 Administered Vital Signs Blood pressure systolic 118 mm Hg 01/31/20 25 Blood pressure diastolic 70 mm Hg 025 Heart Rate 75 /min 01/30/2025 Height 66.50 in 01/30/2025 Weight 167.2 lbs 01/30/2025 BMI 26.58 kg/m2 01/30/2025 Encounters Encounter Location Date Provider Diagnosis [facility] [address] [facility] [address] [place], [place] [id number] 01/30/2025 Mario Alberto Marshall Hypothyroidism E03.9 ; [...] Polycythemia vera Continue follow-up w [facility] Dr. Holder Next Appt Details Follow Up: 6 Months, Reason: Provider Name:Mario Alberto Rodriguez, 07/31/2025 10:15:00 AM, [address] [facility], [address], [place], [place], [id number], Progress Notes * Jonny CODY LDOB: 0 (74 yo M)Acc No.[id number]:01/30/2025 Progress Notes Patient: Jonny SCHWARZ Provider: Mario Alberto Marshall M.D. :1950 A ge:74 Y S ex:Male Date:01/30/2025 Address:[address], [place], [id number] Subjective: * Chief Complaints: * 1 . [...] for immunization - Z23 9 . B [place] 26.0-26.9,adult - Z68.26 Plan: * Treatment: Value [...] * Images: Billing Information: * Visit Code: 46151 Office Visit, Est Pt., Level 4. * [...] 01/30/2025 Generated for Antonio bland/Ronel/eTransmitting on: 1 11:53 AM EST History and [...]
--- OUTSIDE RECORDS SUMMARY | 2025-05-02 09:40 | XMS_ITS | Encounter Summary ---
Author Organization [facility] Address [address] [place] [address] Care Team Providers Care Quantity Surveyor Name Role Phone Juanjo Marshall MD Primary Care Provider [phone] Reason for Visit * Reason Comments Follow-up Patient is a 74 year old male that presents to the clinic on this date for a follow up. Patient denies pain at the current moment. Patient denies complaints or concerns at the current moment. * Consultation (Routine) - Closed Specialty Diagnoses / Procedures Referred By Contac t Referred To Contact Diagnoses Hypervolemia associated with renal insufficiency CKD stage 3b, GFR 30-44 ml/min (CMS/HCC) Ben Lozada MD [address] [place] [phone] Phone: tel: fax: Referral ID Status Reason Start Date Expiration Date Visits Re quested Visits Authorized [id number] Closed 12/27/2024 06/28/2026 1 1 Encounter Details Date Type Department Care Team (Latest Contact Info) Description 05/02/2025 9:40 AM EST Office Visit [facility] [address] [place] [address] Ben Lozada MD [address] [place] [phone] Hypervolemia associated with renal insufficiency (Primary Dx); Hypertensive chronic kidney disease with stage 1 through stage 4 chronic kidney disease, or unspecified chronic kidney disease; Hyperkalemia; CKD stage 3b, GFR 30-44 ml/min (CMS/HCC); Chronic kidney disease-mineral and bone disorder (CKD-MBD); Elevated alkaline phosphatase level; Metabolic acidosis Social History Tobacco Use Types Packs/Day Years [...] on file documented as of this encounter Last Filed Vital Signs Vital Sign Reading Time Taken Comments Blood Pressure 118/60 05/02/2025 11:32 AM EST Pulse 66 05/02/2025 11:32 AM EST Temperature - - Respiratory Rate 18 05/02/2025 11:32 AM EST Oxygen Saturation 96% 05/02/2025 11:32 AM EST Inhaled Oxygen Concentration - - Weight 75.3 kg (166 lb) 05/02/2025 11:32 AM EST Height 170.2 cm (5' 7 ) 05/02/2025 11:32 AM EST Body Mass Index 26 05/02/2025 11:32 AM EST documented in this encounter Functional Status * BP Answer Date of Assessment Author 118/60 05/02/2025 11:32 AM EST Sendy Roberson * Pulse Answer Date of Assessment Author 66 05/02/2025 11:32 AM EST Sendy Roberson * Resp Answer Date of Assessment Author 18 05/02/2025 11:32 AM EST Sendy Roberson * SpO2 Answer Date of Assessment Author 96 05/02/2025 11:32 AM EST Sendy Roberson * Height Answer Date of Assessment Author 67 05/02/2025 11:32 AM EST Sendy Roberson * Weight Answer Date of Assessment Author 2656 05/02/2025 11:32 AM EST Sendy Roberson * BMI (Calculated) Answer Date of Assessment Author 26.1 05/02/2025 11:32 AM EST Sendy Roberson * Percent Excess Weight Loss Answer Date of Assessment Author 0 05/02/2025 11:32 AM EST Roberson, Sendy * Total Weight Change Percent Answer Date of Assessment Author 2222 05/02/2025 11:32 AM EST Roberson, Sendy * Weight Change Since Preop Answer Date of Assessment Author 75.28 05/02/2025 11:32 AM EST Roberson, Sendy * Initial Excess Weight Answer Date of Assessment Author -67.13 05/02/2025 11:32 AM EST Roberson, Sendy * IBW in lbs (Bariatric) Answer Date of Assessment Author 148 05/02/2025 11:32 AM EST Roberson, Sendy * Weight Change Since Last Visit Answer Date of Assessment Author 75.28 05/02/2025 11:32 AM EST Roberson, Sendy * IBW in kg (Bariatric) Answer Date of Assessment Author 67.13 05/02/2025 11:32 AM EST Roberson, Sendy * Percent of IBW Answer Date of Assessment Author 3,956.5 05/02/2025 11:32 AM EST Roberson, Sendy * EBW (kg) Answer Date of Assessment Author 2,654.1 05/02/2025 11:32 AM EST Roberson, Sendy * EBW (lbs) Answer Date of Assessment Author 2,646.75 05/02/2025 11:32 AM EST Roberson, Sendy * Weight Change 24 hrs Answer Date of Assessment Author 0 05/02/2025 11:32 AM EST Roberson, Sendy * BSA (Calculated - sq m) Answer Date of Assessment Author 1.89 05/02/2025 11:32 AM EST Da, Sendy * BMI (Calculated) Answer Date of Assessment Author 25.99 05/02/2025 11:32 AM EST Roberson, Sendy * BP Location Answer Date of Assessment Author Right arm 05/02/2025 11:32 AM EST Roberson, Sendy * IBW/kg (Calculated) Male Answer Date of Assessment Author 66.1 05/02/2025 11:32 AM EST Roberson, Sendy * IBW/kg (Calculated) Female Answer Date of Assessment Author 61.6 05/02/2025 11:32 AM EST Roberson, Sendy * Restart Vitals Timer Answer Date of Assessment Author Yes 05/02/2025 11:32 AM EST Roberson, Sendy * IBW/kg (Calculated) Answer Date of Assessment Author 66.1 05/02/2025 11:32 AM EST Roberson, Senyd * Weight in (lb) to have BMI = 25 Answer Date of Assessment Author 159.3 05/02/2025 11:32 AM EST Roberson, Sendy * BMI (Calculated) Answer Date of Assessment Author 26.1 05/02/2025 11:32 AM EST Roberson, Sendy * Percent Excess Weight Loss Answer Date of Assessment Author 0 05/02/2025 11:32 AM EST Roberson, Sendy * Weight Change Since Preop Answer Date of Assessment Author 75.3 05/02/2025 11:32 AM EST Roberson, Sendy * Initial Excess Weight Answer Date of Assessment Author -67.13 05/02/2025 11:32 AM EST Roberson, Sendy * IBW in kg (Bariatric) Answer Date of Assessment Author 67.13 05/02/2025 11:32 AM EST Roberson, Sendy * IBW in lb (Bariatric) Answer Date of Assessment Author 148 05/02/2025 11:32 AM EST Roberson, Sendy * Weight Change Since Last Visit Answer Date of Assessment Author 75.3 05/02/2025 11:32 AM EST Roberson, Sendy * Percent of IBW Answer Date of Assessment Author 112.16 05/02/2025 11:32 AM EST Roberson, Sendy * EBW (kg) Answer Date of Assessment Author 8.15 05/02/2025 11:32 AM EST Roberson, Sendy * EBW (lb) Answer Date of Assessment Author 18 05/02/2025 11:32 AM EST Roberson, Sendy * Difference in Weight Since Last Visit Answer Date of Assessment Author 0 05/02/2025 11:32 AM EST Roberson, Sendy * IBW/kg (Calculated) Answer Date of Assessment Author 66.1 05/02/2025 11:32 AM EST Roberson, Sendy * Adult Low Range Vt 6mL/kg Answer Date of Assessment Author 396.6 05/02/2025 11:32 AM EST Roberson, Sendy * Adult Moderate Range Vt 8mL/kg Answer Date of Assessment Author 528.8 05/02/2025 11:32 AM EST Da Sendy * Adult High Range Vt 10mL/kg Answer Date of Assessment Author 661 05/02/2025 11:32 AM EST Roberson, Sendy * Pain Score Answer Date of Assessment Author 0 05/02/2025 11:34 AM EST Da, Sendy * Patient Position Answer Date of Assessment Author Sitting 05/02/2025 11:32 AM EST Roberson, Sendy * Pain Screening/Additional Assessments Question Answer Date of Assessment Author Pain Screening/Assessments Pain Screening 05/02/2025 1 1:34 AM EST Roberson, Sendy * Pain Screening Answer Date of Assessment Author 0-10 05/02/2025 11:34 AM EST Da, Sendy * BP Answer Date of Assessment Author 118/60 05/02/2025 11:32 AM EST Da, Sendy * Pulse Answer Date of Assessment Author 66 05/02/2025 11:32 AM EST Da Sendy * Resp Answer Date of Assessment Author 18 05/02/2025 11:32 AM EST Da Sendy * SpO2 Answer Date of Assessment Author 96 05/02/2025 11:32 AM EST Da, Sendy * Height Answer Date of Assessment Author 67 05/02/2025 11:32 AM EST Da Sendy * Weight Answer Date of Assessment Author 2656 05/02/2025 11:32 AM EST Da, Sendy * BSA (Calculated - sq m) Answer Date of Assessment Author 1.89 05/02/2025 11:32 AM EST Da Sendy * BMI (Calculated) Answer Date of Assessment Author 25.99 05/02/2025 11:32 AM EST Roberson, Sendy * BP Location Answer Date of Assessment Author Right arm 05/02/2025 11:32 AM EST Da Sendy * Restart Vitals Timer Answer Date of Assessment Author Yes 05/02/2025 11:32 AM EST Da Sendy * Weight in (lb) to have BMI = 25 Answer Date of Assessment Author 159.3 05/02/2025 11:32 AM EST Da Sendy * Pain Score Answer Date of Assessment Author 0 05/02/2025 11:34 AM EST Da Sendy * Patient Position Answer Date of Assessment Author Sitting 05/02/2025 11:32 AM EST Da Sendy documented as of this encounter Mental Status * BP Answer Entry Date Author 118/60 05/02/2025 11:32 AM EST Da Sendy * Pulse Answer Entry Date Author 66 05/02/2025 11:32 AM EST Da Sendy * Resp Answer Entry Date Author 18 05/02/2025 11:32 AM EST Da Sendy * SpO2 Answer Entry Date Author 96 05/02/2025 11:32 AM EST Da, Sendy * Height Answer Entry Date Author 67 05/02/2025 11:32 AM EST Da Sendy * Weight Answer Entry Date Author 2656 05/02/2025 11:32 AM EST Naveen Robersonitha * BMI (Calculated) Answer Entry Date Author 26.1 05/02/2025 11:32 AM EST Da Sendy * Percent Excess Weight Loss Answer Entry Date Author 0 05/02/2025 11:32 AM EST Da Sendy * Total Weight Change Percent Answer Entry Date Author 22205/02/2025 11:32 AM EST Da Sendy * Weight Change Since Preop Answer Entry Date Author 75.28 05/02/2025 11:32 AM EST Da Sendy * Initial Excess Weight Answer Entry Date Author -67.13 05/02/2025 11:32 AM EST Da Sendy * IBW in lbs (Bariatric) Answer Entry Date Author 148 05/02/2025 11:32 AM EST Da Sendy * Weight Change Since Last Visit Answer Entry Date Author 75.28 05/02/2025 11:32 AM EST Roberson, Sendy * IBW in kg (Bariatric) Answer Entry Date Author 67.13 05/02/2025 11:32 AM EST Da Sendy * Percent of IBW Answer Entry Date Author 3,956.5 05/02/2025 11:32 AM EST Da Sendy * EBW (kg) Answer Entry Date Author 2,654.1 05/02/2025 11:32 AM EST Da Sendy * EBW (lbs) Answer Entry Date Author 2,646.75 05/02/2025 11:32 AM EST Roberson, Sendy * Weight Change 24 hrs Answer Entry Date Author 0 05/02/2025 11:32 AM EST Roberson, Sendy * BSA (Calculated - sq m) Answer Entry Date Author 1.89 05/02/2025 11:32 AM EST Roberson, Sendy * BMI (Calculated) Answer Entry Date Author 25.99 05/02/2025 11:32 AM EST Roberson, Sendy * BP Location Answer Entry Date Author Right arm 05/02/2025 11:32 AM EST Roberson, Sendy * IBW/kg (Calculated) Male Answer Entry Date Author 66.1 05/02/2025 11:32 AM EST Roberson, Sendy * IBW/kg (Calculated) Female Answer Entry Date Author 61.6 05/02/2025 11:32 AM EST Roberson, Sendy * Restart Vitals Timer Answer Entry Date Author Yes 05/02/2025 11:32 AM EST Roberson, Sendy * IBW/kg (Calculated) Answer Entry Date Author 66.1 05/02/2025 11:32 AM EST Roberson, Sendy * Restart Pain Assessment Timer Answer Entry Date Author Yes 05/02/2025 11:34 AM EST Roberson, Sendy * Weight in (lb) to have BMI = 25 Answer Entry Date Author 159.3 05/02/2025 11:32 AM EST Roberson, Sendy * BMI (Calculated) Answer Entry Date Author 26.1 05/02/2025 11:32 AM EST Roberson, Sendy * Percent Excess Weight Loss Answer Entry Date Author 0 05/02/2025 11:32 AM EST Roberson, Sendy * Weight Change Since Preop Answer Entry Date Author 75.3 05/02/2025 11:32 AM EST Roberson, Sendy * Initial Excess Weight Answer Entry Date Author -67.13 05/02/2025 11:32 AM EST Roberson, Sendy * IBW in kg (Bariatric) Answer Entry Date Author 67.13 05/02/2025 11:32 AM EST Roberson, Sendy * IBW in lb (Bariatric) Answer Entry Date Author 148 05/02/2025 11:32 AM EST Roberson, Sendy * Weight Change Since Last Visit Answer Entry Date Author 75.3 05/02/2025 11:32 AM EST Roberson, Sendy * Percent of IBW Answer Entry Date Author 112.16 05/02/2025 11:32 AM EST Roberson, Sendy * EBW (kg) Answer Entry Date Author 8.15 05/02/2025 11:32 AM EST Roberson, Sendy * EBW (lb) Answer Entry Date Author 18 05/02/2025 11:32 AM EST Roberson, Sendy * Difference in Weight Since Last Visit Answer Entry Date Author 0 05/02/2025 11:32 AM EST Roberson, Sendy * IBW/kg (Calculated) Answer Entry Date Author 66.1 05/02/2025 11:32 AM EST Roberson, Sendy * Adult Low Range Vt 6mL/kg Answer Entry Date Author 396.6 05/02/2025 11:32 AM EST Roberson, Sendy * Adult Moderate Range Vt 8mL/kg Answer Entry Date Author 528.8 05/02/2025 11:32 AM EST Roberson, Sendy * Adult High Range Vt 10mL/kg Answer Entry Date Author 661 05/02/2025 11:32 AM EST Roberson, Sendy * Pain Score Answer Entry Date Author 0 05/02/2025 11:34 AM EST Roberson, Sendy * BP Cuff Size Answer Entry Date Author Large adult 05/02/2025 11:32 AM EST Roberson, Sendy * Patient Position Answer Entry Date Author Sitting 05/02/2025 11:32 AM EST Roberson, Sendy * Pain Screening Answer Entry Date Author 0-10 05/02/2025 11:34 AM EST Roberson, Sendy documented in this encounter Miscellaneous Notes * Progress Notes - Ben Lozada MD - 05/02/2025 9:40 AM EST [facility] Visit Patient: Jonny Spivey Primary Care Provider: Samuel Marshall MD Reason for visit/chief complaint: Follow up CKD follow up HPI/Subjective Jonny Spivey is a 74 y.o. male with a PMH of HTN, hypothyroidism, polycythemia vera on hydroxyurea, CKD c/b hyperkalemia who presents for follow up. Doing well since last visit. Feels like he is drinking more milk since last time perhaps is why hisK+ is up. ROS Review of Systems + leg swelling improved - urinary symptoms History: Past Medical History: Diagnosis Date Personal history of other diseases of male genital organs History of BPH Personal history of other diseases of the musculoskeletal system and connective tissue History of arthritis Personal history of other endocrine, nutritional and metabolic disease History of high cholesterol Personal history of other mental and behavioral disorders History of anxiety disorder Personal history of other mental and behavioral disorders History of depression Patient Active Problem List Diagnosis Hypervolemia associated with renal insufficiency CKD stage 3b, GFR 30-44 ml/min ([facility]) Chronic kidney disease-mineral and bone disorder (CKD-MBD) Hyperkalemia Elevated alkaline phosphatase level Hypertensive chronic kidney disease with stage 1 through stage 4 chronic kidney disease, or unspecified chronic kidney disease Past Surgical History: Procedure Laterality Date HERNIA REPAIR 05/2023 Family History Problem Relation Name Age of Onset Alzheimer's disease Father Dementia Mother Diabetes Mother Hip fracture Father Hypertension Mother Osteoporosis Mother Social History Socioeconomic History Marital status: Unknown Spouse name: Not on file Number of children: Not on file Years of education: Not on file Highest education level: Not on file Occupational History Not on file Tobacco Use Smoking status: Former Current packs/day: 0.00 Types: Cigarettes Quit date: 05/13/1984 Years since quittin.9 Passive exposure: Past Smokeless tobacco: Never Tobacco comments: He smoked 2.5 - 3 packs a day for 40 years. He stopped smoking in 2009 Substance and Sexual Activity Alcohol use: Not Currently Comment: Alcoholic Drinks/day: History of alcohol use Drug use: Never Sexual activity: Not on file Other Topics Concern Not on file Social History Narrative Marital Status: Social Drivers of Health Food Insecurity: No Food Insecurity (05/26/2023) Received from [facility] ([place], [place], [place], [place], [place]) Food Insecurity Food run out past 12 months: Not on file Food did not last past 12 months: Not on file Alcohol Use: Not on file Housing Stability: Low Risk (05/26/2023) Received from [facility] ([place], [place], [place], [place], [place]) Housing Stability Living situation today: Not on file Living situation problems: Not on file Tobacco Use: Medium Risk (12/27/2024) Patient History Smoking Tobacco Use: Former Smokeless Tobacco Use: Never Passive Exposure: Past Transportation Needs: Not on file Depression: Not At Risk (05/13/2024) PHQ-2 PHQ-2 Score: 0 Utilities: Not on file Stress: Not on file Intimate Partner Violence: Not on file Physical Activity: Not on file Social Connections: Low Risk (05/26/2023) Received from [facility] ([place], [place], [place], [place], [place]) Family and Community Support Help with Day to Day Activities: Not on file Feeling Lonely or Isolated: Not on file Financial Resource Strain: Not on file No Known Allergies Medications: Current Medications: Current Outpatient Medications Medication Instructions allopurinol (Zyloprim) 100 MG tablet 1 tablet, 2 times daily ARIPiprazole (Abilify) 5 MG tablet 1 tablet, Daily aspirin 81 MG EC tablet 1 tablet, Daily bisoprolol (Zebeta) 10 MG tablet 1 tablet, Daily Flomax 0.4 MG 24 hr capsule Every 24 hours hydroxyurea (Hydrea) 500 MG capsule Every 24 hours Synthroid 75 MCG tablet 1 tablet, Daily Torsemide 40 mg, Oral, Daily venlafaxine XR (Effexor-XR) 75 MG 24 hr capsule TAKE 1 CAPSULE BY MOUTH ONCE DAILY WITH 150 MG VENLAFAXINE venlafaxine XR (EFFEXOR-XR) 150 mg, Daily Objective Visit Vitals Smoking Status Former BP: ()/() Arterial Line BP: ()/() Physical Exam: Physical Exam Constitutional: General: He is not in acute distress. Appearance: Normal appearance. He is normal weight. He is not ill-appearing. HENT: Head: Normocephalic. Right Ear: External ear normal. Left Ear: External ear normal. Nose: Nose normal. Mouth/Throat: Mouth: Mucous membranes are moist. Pharynx: Oropharynx is clear. Eyes: Conjunctiva/sclera: Conjunctivae normal. Pupils: Pupils are equal, round, and reactive to light. Cardiovascular: Rate and Rhythm: Normal rate. Pulses: Normal pulses. Pulmonary: Effort: Pulmonary effort is normal. Abdominal: General: Abdomen is flat. Bowel sounds are normal. Musculoskeletal: General: Normal range of motion. Right lower le+ Pitting Edema present. Left lower le+ Pitting Edema present. Right foot: Swelling present. Left foot: Swelling present. Skin: General: Skin is warm and dry. Capillary Refill: Capillary refill takes less than 2 seconds. Neurological: General: No focal deficit present. Mental Status: He is alert and oriented to person, place, and time. Mental status is at baseline. Psychiatric: Mood and Affect: Mood normal. Behavior: Behavior normal. Thought Content: Thought content normal. Judgment: Judgment normal. Laboratory: I have reviewed the laboratory studies below LAB RESULTS Referral Labs reviewed: 04/25/2024 Potassium 6.8 Sodium 137 Cl 107 CO2 20 BUN 42 Creatinine 2.07 eGFR 33 mL/min Albumin 3.9 Protein 6.3 Alk phos 143 ALT 11 AST 12 T bili 0.6 Calcium 8.4 Glu 104 Labs 06/20/2024 RFP: Na 138, K 4.6, Cl 104, CO2 26, BUN 48, Cr 2.4, GFR 27, Glu 109, Ca 8.3, Labs 08/14/2024 CBC: Wbc 1.1, HGB 13.4, PLT 337 RFP: Na 136, K 6.2 (H), Cl 103, CO2 27, BUN 45, Cr 2.3, GFR 28, Glu 106, Ca 8.7, phos 4.3, Alb 3.9 Ur creat 64, Ur microalbumin 65 ratio 101.5 (High) Ur total protein 18.0 UPCR 18/64 UA Negative blood, negative protein iPTH 103.1 12/19/24 CBC: WBC 10K, Hgb 11.6 g/dL, PLT 307 RFP: Na 137, K 4.6, CO2 26, Cl 105, BUN 42, Cr 2.4, GFR 27, Ca 8.4, P 4.3 04/29/2025 CBC: WBC 12.4, HGB 9.8, PLT 555 RFP: NA 137, K 6.1, CO2 18, Cl 113, BUN 35, Cr 2.4, GFR 27, Ca 8.1, P 4.6, Alb 3.8 IPth 121 Imaging: No recent kidney imaging for review ECHO 02/27/2023 TTE procedure: ECHO COMPLETE (DOPPLER / COLOR) W OR WO CONTRAST. HR: 67 bpmRhythm: Irregular Patient Status: Routine OP Study Location: Echo LabTechnical Quality: Adequate visualization Indications:Chest pain. Impression: Mild mitral regurgitation. Mildly calcified aortic valve leaflets. Mild tricuspid regurgitation. Mild pulmonary hypertension. Mild pulmonic regurgitation. Normal left ventricular wall thickness. Normal left ventricular systolic function. Visually estimated ejection fraction 60% +/- 5%. Grade 2 diastolic dysfunction. No pericardial effusion. Normal IVC with appropriate collapse. Impression & Plan: Jonny Spivey is a 74 y.o. male with a PMH of polycythemia vera on hydroxyurea, CKD, hyperkalemia who follows for CKD. #CKD stage 3b/4 Etiology: Hypertensive CKD and Cardiorenal syndrome from chronic hypervolemia, previous heavy smoker Baseline serum creatinine: 1.7-2.0 may be Most recent Scr: 2.4 Electrolytes: Hyper K 6.8 --> 6.2 --> 4.6 --> 6.1 Volume: chronic hypervolemia Urine: Negative protein, Negative blood Anatomy: no recent imaging for review Risk factor reduction to slow progression of kidney disease: -BP Control goal BP <130/80 -DM control goal A1c <7.0% -Lifestyle management: ---Maintain healthy weight: BMI 27 is acceptable ---Diet recommendations: Heart healthy and Low sodium <2g/day, Low Potassium diet ---Daily exercise 20-30 minutes as tolerated -Avoid NSAIDs -JUN blockade: not on due to HyperK -SGLT2 inhibitor: consider starting at future visit #Severe Hyperkalemia -potentially life threatening if not treated. Has been high in the past and responded to diet and lokelma, now is high again -had to do Lokelma 10 g x14 days in September/October 2024, decreased his OJ and milk consumption #HTN in CKD- at goal -goal BP<130/80 -bisoprolol 10mg daily #polycythemia vera -on hydroxyurea and allopurinol #CKD Bone and Mineral Disease #hypocalcemia #elevated alk phos -PTH 103.1 --> 121 #Metabolic acidosis Recommendations and plan: -Kidney function is stable. Electrolytes significant for acidosis CO2 - 18 and hyperkalemia K 6.1 -Start lokelma 10 g M-W- for hyperkalemia -Start sodium bicarb 650 mg BID for metabolic acidosis -Lower extremity edema greatly improved on torsemide 40 mg daily -Blood pressure at goal -recommend continuing LOW potassium diet (stop driinking milk, orange juice) -recommend avoidance of NSAIDs RTC in 3 months with labs before that visit as well Ben Lozada MD Division of Nephrology [facility] ORDERS PLACED THIS ENCOUNTER No orders of the defined types were placed in this encounter. Problem List Items Addressed This Visit None documented in this encounter Plan of Treatment Upcoming Encounters Date Type Department Care Team (Late st Contact Info) Description 07/18/2025 11:20 AM EST Office Visit [facility] [address] [place] [address] Ben Lozada MD [address] [place] [id number] Scheduled Orders Name Type Priority Associated Diagnoses Orde r Schedule Renal function panel Lab Routine Hypervolemia associated with renal insufficiency CKD stage 3b, GFR 30-44 ml/min (CMS/HCC) Expected: 07/31/2025 (Approximate), Expires: 11/03/2026 CBC Lab Routine Hypervolemia associated with renal insufficiency CKD stage 3b, GFR 30-44 ml/min (CMS/HCC) Expected: 07/31/2025 (Approximate), Expires: 11/03/2026 Urinalysis with reflex microscopic (Culture NOT Included) Lab Routine CKD stage 3b, GFR 30-44 ml/min (CMS/HCC) Expected: 07/31/2025 (Approximate), Expires: 11/03/2026 documented as of this encounter Visit Diagnoses Diagnosis Hypervolemia associated with renal insufficiency- Primary Hypertensive chronic kidney disease with stage 1 through stage 4 chronic kidney disease, or unspecified chronic kidney disease Hyperkalemia Hyperpotassemia CKD stage 3b, GFR 30-44 ml/min (CMS/HCC) Chronic kidney disease-mineral and bone disorder (CKD-MBD) Elevated alkaline phosphatase level Metabolic acidosis Acidosis documented in this encounter Additional Health Concerns Assessment Noted Time A fall risk assessment has been complete d for the patient 05/13/2024 11:01 AM EST A Body Mass Index follow-up plan has been documented for the patient 05/02/2025 12:02 PM EST documented as of this encounter Care Teams Quantity Surveyor Relationship Specialty Start Date End Date Juanjo Marshall MD [facility] [address] PCP - General 09/25/20 documented as of this encounter
--- OUTSIDE RECORDS SUMMARY | 2025-05-12 11:52 | XMS_ITS | Referral Summary ---
Author Organization [employer] [facility] ([place], [place], [place], [place], [place]) Address [address] [place] [address] Care Team Providers Care Generalist Name Role Phone Samuel Marshall MD Primary Care Provider [phone] Allergies No known active allergies Medications ARIPiprazole [...] Date Brendon rded Speak language other than [place] at home Not on file 05/26/2023 Want [...] Most Recently Relevant to Health Maintenance Insurance [facility] MEDICARE HMO Advance Directives For more information, please contact: [phone] * Full Code (Latest Code Status on File) Date Activated Date Inactivated Comments 01/18/2023 11:32 AM 01/18/2023 3:03 PM -Attempt Resu scitation if person has no pulse and is not breathing. -If no pulse or not breathing attempt CPR/CODE. -Call Rapid Response if patient is in distress. Care Teams Generalist Relationship Specialty Start Date End Date Samuel Marshall MD [address] [place] [address] PCP - General Family Medicine 11/16/22
--- OUTSIDE RECORDS SUMMARY | 2025-05-12 11:53 | XMS_ITS | Encounter Summary ---
Author Organization Healthcare Address [address] [place] [address] Care Team Providers Care Field Marketing Manager Name Role Phone Juanjo Marshall MD Primary Care Provider Encounter Details Date Type Department Care Team ([facility] Contact Info) Description 04/29/2025 Telephone [facility] Nephrology, Bone & Mineral Metabolism [address] [facility], [address] [place] [address] Christi Cowan RN None None [...] Upcoming Encounters Date Type Department Care Team ([facility] Contact Info) Description 07/18/2025 11:20 AM EST Office Visit [facility] [address] [place] [address] Ben Lozada MD [address] [place] [phone] documented as of this encounter Visit Diagnoses Not on filedocumented in this encounter Additional Health Concerns Assessment Noted Time A fall risk assessment has been complete d for the patient 05/13/2024 11:01 AM EST A Body Mass Index follow-up plan has been documented for the patient 12/27/2024 9:27 AM EDT documented as of this encounter Care Teams Field Marketing Manager Relationship Specialty Start Date End Date Juanjo Marshall MD [facility] [address] PCP - General 09/25/20 documented as of this encounter
--- OUTSIDE RECORDS SUMMARY | 2025-05-12 11:53 | XMS_ITS | Clinical Summary ---
Author Organization [facility] Address [address] [place] [address] Care Team Providers Care Culinary Arts Instructor Name Role Phone Juanjo Marshall MD Primary Care Provider [phone] Allergies No known active allergies Medications allopurinol [...] each day at the same time. 07/09/19 Active Synthroid 75 MCG tablet Take 1 [...] 150 MG VENLAFAXINE 04/18/20 24 Active torsemide 40 MG tabletIndications :Edema due to hypervolemia,Hype rvolemia associated with renal insufficiency Take 40 mg by mouth daily. 90 tablet 3 12/28/19 25 Active Additional Information Patient not taking.Reported on 05/02/2025 sodium zirconium cyclosilicate (Lokelma) 10 g packetIndications :Hyperkalemia Take 10 g by mouth Q MWF. 90 g 3 05/02/20 25 Active sodium bicarbonate 650 MG tabletIndications :Metabolic acidosis Take 1 tablet by mouth 2 times a day after meals. 90 tablet 3 05/02/20 25 Active sodium polystyrene (Kionex) 15 GM/60ML suspension Take 60 mL by mouth 1 time. 025 Discontinu ed(Per Patient Report) Active Problems Problem Noted Date Diagnosed Date Metabolic acidosis 05/02/2025 Hypertensive chronic kidney disease with stage 1 through stage 4 chronic kidney disease, or unspecified chronic kidney disease 12/27/2024 Hypervolemia associated with renal insufficiency 05/13/2024 CKD stage 3b, GFR 30-44 ml/min 05/13/2024 Chronic kidney disease-mineral and bone disorder (CKD-MBD) 05/13/2024 Hyperkalemia 05/13/2024 Elevated alkaline phosphatase level 05/13/2024 Encounters Date Type Department Care Team Description 05/02/2025 9:40 AM EST Office Visit [facility] [address] [place] [id number] Ben Lozada MD Hypervolemia associated with renal insufficiency (Primary Dx); Hypertensive chronic kidney disease with stage 1 through stage 4 chronic kidney disease, or unspecified chronic kidney disease; Hyperkalemia; CKD stage 3b, GFR 30-44 ml/min ([facility]); Chronic kidney disease-mineral and bone disorder (CKD-MBD); Elevated alkaline phosphatase level; Metabolic acidosis 05/02/2025 Orders Only [facility] [address] [place] [id number] Chelsea Leblanc 05/02/2025 Travel 04/30/2025 Telephone [facility] [address] [place] [address] Chelsea Leblanc 04/29/2025 Telephone [facility] Nephrology, Bone & Mineral Metabolism [address] [facility], [address] [place] [address] Christi Cowan RN from Last [...] Pulse 66 05/02/2025 11:32 AM EST Temperature 36.4 C (97.6 F) 05/13/2024 10:59 AM EST Respiratory Rate 18 05/02/2025 11:32 AM EST Oxygen Saturation 96% 05/02/2025 11:32 AM EST Inhaled Oxygen Concentration - - Weight 75.3 kg (166 lb) 05/02/2025 11:32 AM EST Height 170.2 cm (5' 7 ) 05/02/2025 11:32 AM EST Body Mass Index 26 05/02/2025 11:32 AM EST Plan of Treatment Upcoming Encounters Date Type Department Care Team (Late st Contact Info) Description 07/18/2025 11:20 AM EST Office Visit [facility] [address] [place] [address] Ben Lozada MD [address] [place] [phone] Health Maintenance Due Date Last Done Comments [...] or (1 - 1-dose 75+ series) 2024 LNC-HATMT-50 Vaccine (2024- season) 2025 02/06/2022, 11/18/2021, 03/07/2021, Additional history exists [facility]-Depression Screening 05/13/2025 05/13/2024 [facility]-Pneumococcal Vaccine: 50+ Years Completed 04/27/2023, 10/22/2021 [facility]-Influenza Vaccine Completed 01/30/2025 , 04/25/2024, 04/27/2023, Additional history exists [facility]-Obesity Intervention Completed 025, 12/27/2024, 08/16/2024, Additional history exists HPV Vaccines (No Doses Required) Completed [facility]-HIB [...] this topic Insurance [employer] MEDICARE Care Teams Culinary Arts Instructor Relationship Specialty Start Date End Date Juanjo Marshall MD [facility] [address] PCP - General 09/25/20
--- OUTSIDE RECORDS SUMMARY | 2025-05-12 11:53 | XMS_ITS | Encounter Summary ---
Author Organization [facility] Address [address] [place] [address] Care Team Providers Care Manual Writer Name Role Phone Juanjo Marshall MD Primary Care Provider [phone] Encounter Details Date Type Department Care Team (Late Contact Info) Description 05/02/2025 Orders Only [facility] [address] [place] [address] Chelsea Leblanc Social History Tobacco Use Types Packs/Day Years [...] Department Care Team (Late Contact Info) Description 07/18/2025 11:20 AM EST Office Visit [facility] [address] [address] Ben Lozada MD [address] [place] [phone] documented as of this encounter Visit Diagnoses Not on filedocumented in this encounter Additional Health Concerns Assessment Noted Time A fall risk assessment has been complete d for the patient 05/13/2024 11:01 AM EST A Body Mass Index follow-up plan has been documented for the patient 05/02/2025 12:02 PM EST documented as of this encounter Care Teams Manual Writer Relationship Specialty Start Date End Date Juanjo Marshall MD [facility] [id number] PCP - General 09/25/20 documented as of this encounter
--- OUTSIDE RECORDS SUMMARY | 2025-05-12 11:53 | XMS_ITS | Clinical Summary ---
Author Organization [facility] ([place], [place], [place], [place], [place]) Address [address] [place] [address] Care Team Providers Care Chemical Plant Manager Name Role Phone Samuel Marshall MD Primary Care Provider [phone] Allergies No known active allergies Medications ARIPiprazole [...] Date Brendon rded Speak language other than Yi at home Not on file 05/26/2023 Want [...] Advance Directives For more information, please contact: [phone] * Full Code (Latest Code Status on File) Date Activated Date Inactivated Comments 01/18/2023 11:32 AM 01/18/2023 3:03 PM -Attempt Resu scitation if person has no pulse and is not breathing. -If no pulse or not breathing attempt CPR/CODE. -Call Rapid Response if patient is in distress. Care Teams Chemical Plant Manager Relationship Specialty Start Date End Date Samuel Marshall MD [address] [place] [address] PCP - General Family Medicine 11/16/22
--- OUTSIDE RECORDS SUMMARY | 2025-05-12 11:54 | XMS_ITS | Encounter Summary ---
Author Organization [facility] Address [address] [place] [address] Care Team Providers Care Magazine Publisher Name Role Phone Juanjo Marshall MD Primary Care Provider [phone] Encounter Details Date Type Department Care Team (Late st Contact Info) Description 04/30/2025 Telephone [facility] [address] [address] Chelsea Leblanc Social History Tobacco Use [...] on file documented as of this encounter Miscellaneous Notes * Telephone Encounter - Chelsea Leblanc - 04/30/2025 4:28 PM EST Tried to call pt about high k+ level of 6.1 from his labs drawn on 04/29/25 documented in this encounter Plan of Treatment Upcoming Encounters Date Type Department Care Team (Late st Contact Info) Description 07/18/2025 11:20 AM EST Office Visit [facility] [address] [place] [address] Ben Lozada MD [address] [place] [phone] documented as of this encounter Visit Diagnoses Not on filedocumented in this encounter Additional Health Concerns Assessment Noted Time A fall risk assessment has been complete d for the patient 05/13/2024 11:01 AM EST A Body Mass Index follow-up plan has been documented for the patient 12/27/2024 9:27 AM EDT documented as of this encounter Care Teams Magazine Publisher Relationship Specialty Start Date End Date Juanjo Marshall MD [facility] [address] PCP - General 09/25/20 documented as of this encounter
--- OUTSIDE RECORDS SUMMARY | 2025-05-12 11:54 | XMS_ITS | Clinical Summary ---
Author Organization [facility] [employer] [facility] Address [address] [place] [address] Care Team Providers Care Calenderer Name Role Phone Unavailable Primary Care Provider Unavailabl e Social History Tobacco Use Types Packs/Day Years Used Date Smoking Tobacco: Never Assessed Sex and Gender Information Value Date Recorded Sex Assigned at Not on file Legal Sex Male 3:44 PM EST Gender Identity Not on file Sexual Orientation Not on file Plan of Treatment Not on file Medical Devices Not on file
--- OUTSIDE RECORDS SUMMARY | 2025-05-12 11:54 | XMS_ITS | Patient Health Record ---
[facility] [address] [facility] [address] [place] [id number] Care Team Providers Care Noise Abatement Engineer Name Role Phone Rolando Mario Alberto Juanjo Primary Care Provider [phone] Allergies No Known Allergies Results Component Value Reference Range Notes P-Comprehensive Metabolic Pa kelton (CMP) Reviewed date:02/03/2025 06:50:58 PM Interpretation:GFR 25 Performing Lab: Notes/Report: Test performed by [facility] [address] [place], [place] [address] , [address], [place] [address] Calin Brothers MD, Instructional Leader CLIA: [id number] Sodium 138 135-145 mmol/L Potassium 5.3 3.5-5.3 [...] Interpretation:2,80 Performing Lab: Notes/Report: Test performed by [facility] [address] [place], [place] [address] , [address], [place] [address] Calin Brothers MD, Instructional Leader CLIA: [id number] TSH 2.80 0.43-5.25 mU/L P-Uric Acid Reviewed date:02/03/2025 06:50:58 PM Interpretation:8.6 Performing Lab: Notes/Report: Test performed by [facility] [address] , [address], [place] [address] Calin Brothers MD, Instructional Leader CLIA: [id number] Uric Acid 8.6 3.4-8.0 mg/dL CT Scan : Chest, low dose Reviewed date:10/29/2024 08:47:06 AM Interpretation:no suspicious lesions; known splenomegaly Performing Lab: Notes/Report: no suspicious lesions; known splenomegaly Ultrasound : Aorta Reviewed date:09/18/2024 12:02:27 AM Interpretation:negative, incidental splenomegaly Performing Lab: Notes/Report: negative, incidental splenomegaly P-Potassium Reviewed date:05/14/2024 09:34:43 AM Interpretation:5.7 Performing Lab: Notes/Report: Test performed by [facility] [address] , [address], [place] [address] Calin Brothers MD, Instructional Leader CLIA: [id number] Potassium 5.7 3.5-5.3 mmol/L Medications Medication SIG [...] Status W/U Status Risk Notes Problem Hypertension (67739642) HTN (hypertension) (I10) Active confirmed Problem Cardiac dysrhythmia (200517941) Cardiac dysrhythmia (I49.9) Active confirmed Problem Mixed anxiety and depressive disorder (327808691) Depression with anxiety (F41.8) Active confirmed Problem Dysphagia (01557302) Dysphagia (R13.10) Active confirmed Problem Polycythemia vera (322062148) Polycythemia vera (D45) Active confirmed Problem Nicotine dependence (44583392) Personal history of nicotine dependence (Z87.891) Active confirmed Problem Gastroesophageal reflux disease without esophagitis (209364295) Gastroesophageal reflux disease without esophagitis (K21.9) Active confirmed Problem Hypothyroidism (87693504) Hypothyroidism (E03.9) Active confirmed Problem Irritable bowel syndrome (12266594) Irritable bowel syndrome (K58.9) Active confirmed Problem Thrombocytosis (0192082) Thrombocytosis (D47.3) Active confirmed Problem Lower urinary tract symptoms due to benign prostatic hypertrophy (45284882967129) Benign prostatic hyperplasia with lower urinary tract symptoms (N40.1) Active confirmed Problem Chronic kidney disease stage 3B (disorder) (674637209) Stage 3b chronic kidney disease (N18.32) Active confirmed Vital Signs Heart Rate 75 /min 01/30/2025 Blood pressure diastolic 70 mm Hg 01/30/2025 Height 66.50 in 01/30/2025 Blood pressure systolic 118 mm Hg 01/30/2025 Weight 167.2 lbs 01/30/2025 BMI 26.58 kg/m2 01/30/2025 Encounters Encounter Location Date Provider Diagnosis Unique [address] [facility] [address] [facility] [address] [place] [id number] 05/13/2024 R Juanjo Marshall Hyperkalemia E87.5 [facility] [address] [facility] [address] [facility] [address] [place] [id number] 07/25/2024 R Juanjo Marshall Adult general medica l examination Z00.00 ; Hypothyroidism E03.9 ; Stage 3b chronic kidney disease N18.32 ; Polycythemia vera D45 ; Benign prostatic hyperplasia with lower urinary tract symptoms N40.1 ; Personal history of nicotine dependence Z87.891 ; HTN (hypertension) I10 ; Hyperuricemia E79.0 and BMI 26.0-26.9,adult Z68.26 [facility] [address] [facility] [address] [place], [place] [id number] 01/30/2025 R Juanjo Marshall Hypothyroidism E03.9 ; Stage 3b chronic kidney disease N18.32 ; Polycythemia vera D45 ; Benign prostatic hyperplasia with lower urinary tract symptoms N40.1 ; Personal history of nicotine dependence Z87.891 ; HTN (hypertension) I10 ; Hyperuricemia E79.0 ; Encounter for immunization Z23 and BMI 26.0-26.9,adult Z68.26 [facility] [address] [facility] [address] [facility] [address] [place] [id number] 05/14/2024 R Juanjo Marshall [facility] [address] [facility] [address] [facility] [address] [place] [id number] 09/04/2024 R Juanjo Coreasfleet [facility] [address] [facility] [address] [facility] [address] [place] [id number] 09/18/2024 R Juanjo Marshall [facility] [address] [facility] [address] [facility] [address] [place] [id number] 02/03/2025 R Juanjo Marshall Assessments Encounter Date [...] [address], [address], [place], [place], [id number], Insurance Providers Payer Name Payer Address Payer Phone Subscriber Number Group Number Insured Name Patient Relationship to Insured Coverage Start Date Coverage End Date [employer] (MEDICAR E) [address] [address] [place] [address] [id number] Jonny Spivey Self - patient is the [...] removed LT Inguinal Hernia Repair - Dr. Cocharn EGD with esophageal dilatation 10/13/2023 Hospitalization History Reason Date(Month/Year)
--- OUTSIDE RECORDS SUMMARY | 2025-05-12 11:54 | XMS_ITS | Encounter Summary ---
Author Organization Healthcare Address [address] [place] [address] Care Team Providers Care Ancillary Services Manager Therapy Name Role Phone Juanjo Marshall MD Primary Care Provider [phone] Encounter Details Date Type Department Care Team (Latest Contact Info) Description 05/02/2025 Travel Social History Tobacco Use Types Packs/Day Years [...] on file documented as of this encounter Functional Status * Communicable Disease Screening Question Answer Date of Assessment Author Have you been in contact wit h someone who was sick? No / Unsure 05/02/2025 9:16 AM Chelsea Potter Do you have any of the follo wing new or worsening symptoms? None of these 05/02/2025 9:16 AM Heath Potter * Travel Screening Question Answer Date of Assessment Author Have you traveled internatio thuy or domestically in the last month? No 05/02/2025 9:16 AM Chelsea Howard documented as of this encounter Mental Status * Communicable Disease Screening Question Answer Entry Date Author Have you been in contact wit h someone who was sick? No / Unsure 05/02/2025 9:16 AM Chelsea Potter Do you have any of the follo wing new or worsening symptoms? None of these 05/02/2025 9:16 AM EST BenjiHeath * Travel Screening Question Answer Entry Date Author Have you traveled internatio thuy or domestically in the last month? No 05/02/2025 9:16 AM EST JewelsChelsea hester documented in this encounter Plan of Treatment Upcoming Encounters Date Type Department Care Team (Late st Contact Info) Description 07/18/2025 11:20 AM EST Office Visit [facility] [address] [place] [address] Ben Lozada MD [address] [place] [phone] documented as of this encounter Visit Diagnoses Not on filedocumented in this encounter Additional Health Concerns Assessment Noted Time A fall risk assessment has been complete d for the patient 05/13/2024 11:01 AM EST A Body Mass Index follow-up plan has been documented for the patient 05/02/2025 12:02 PM EST documented as of this encounter Care Teams Ancillary Services Manager Therapy Relationship Specialty Start Date End Date Juanjo Marshall MD [facility] [address] PCP - General 09/25/20 documented as of this encounter
[2025-05-12 12:30] LABS: Hematocrit 33.0 % (42.0-52.0); Hemoglobin 9.6 g/dL (14.1-18.0); Immature Granulocytes % 9.2 %; Mean Corpuscular HGB Conc 29.1 g/dL (31.8-35.4); Mean Corpuscular Hemoglobin 27.8 pg (27.0-31.2); Mean Corpuscular Volume 95.7 fl (80-94); Nucleated Red Blood Cells % 0.9 %; Platelet Count 420 K/mm3 (142-424); Red Blood Count 3.45 M/mm3 (4.60-6.20); Red Cell Distribution Width-SD 65.9 fL; White Blood Count 11.7 K/mm3 (4.8-10.8)
[2025-05-12 12:46] LABS: Alanine Aminotransferase 8 U/L (12-78); Albumin Level 3.9 g/dl (3.5-5.0); Albumin/Globulin Ratio 2.0 (1.1-1.8); Alkaline Phosphatase 100 U/L (38-126); Anion Gap 9.7 mEq/L (5-15); Aspartate Amino Transferase 15 U/L (17-59); Bilirubin,Total 0.7 mg/dl (0.2-1.3); Blood Urea Nitrogen 37 mg/dl (9-20); Calcium 7.8 mg/dl (8.4-10.2); Carbon Dioxide 19 mmol/L (22.0-30.0); Chloride 112 mmol/L (98-107); Creatinine,Serum 2.40 mg/dl (0.66-1.25); Estimated Glomerular Filt Rate 27 ml/min (>60); GFR (African American) 32 ML/MIN (>60); Globulin 2.0 g/dL (1.3-3.2); Glucose 102 mg/dl (74-100); Potassium 5.7 mmoL/L (3.5-5.1); Sodium 135 mmol/L (136-145); Total Protein,Serum 5.9 g/dl (6.3-8.2)
[2025-05-12 12:53] LABS: Iron 56 ug/dL (49-181)
[2025-05-12 13:03] LABS: Total Iron Binding Capacity 247 ug/dL (261-462)
[2025-05-12 13:30] LABS: Ferritin 80.1 ng/ml (17.9-464)
[2025-05-12 14:24] LABS: Total Cells Counted 100
[2025-05-12 14:25] LABS: Hypochromasia 1+
== END 2025-05-12 23:59 | disposition home or self-care (01) ==
LOC: LAB 11:50
PROVIDERS: PCP Family Medicine; Visit Provider Internal Medicine Medical Oncology
DX: D45 Polycythemia vera (principal)
CPT/HCPCS: 36415; 80053; 82728; 83540; 83550; 85007; 85025